=== PATIENT | female | born 1960 | race Caucasian/White ===

== ENCOUNTER → 2016-08-04 | Outpatient (CLI) | payer OTHER ==
[~2016-08-04] MED LIST: /DIVA12TA OR; /DULO30CA OR; /DULO30CA PO; /PANT40TA; /PANT40TA OR; /ZOLP6ER OR; ALBU17IN2 IN; ALBUTEROL INH; AMBI10TA; BACTROBAN; BACTROBAN TOP; BETAMETHASONE TOP; BUSP15TA; Buspar; CELE100C OR; CELE20TA; CLAR5CHW; CLAR5CHW OR; CLARITIN PO; CLON0.5T OR; CLON1TAB OR; Claritin; DARV100T; DARV100T OR; FLON0.05; FLUT22IN; IBUP600T; KLON0.5T OR; KLON1TAB; KLON1TAB OR; MEDR8TAB OR; PHEN 25 OR; PHEN 25 PO; PREV15CA OR; PROTOPIC TOP; PROZ10CA OR; PROZ40CA OR; QUET20XRTB OR; RANI300T OR; REME15TA OR; REST30CA OR; SING10TA31 OR; SYMB80AE IN; TRAZ100T OR; TRAZ150T OR; TRAZ50TA; TRIAMCINOLONE OINT; VENTAER; VENTAER IN; VENTOLIN ROTAHALER; VENTOLIN ROTAHALER INH; VICO5TAB; VICO5TAB OR; ZANT150T; ZANT150T OR; [UNRECOGNIZED DRUG - CODE] PO; [UNRECOGNIZED DRUG - REMARK]; cymbalta PO; dexilant; topical cream TOP; trazadone PO
[2016-08-04 14:08] LABS: ALBUMIN 3.5 GM/DL (3.2-5.2); ALBUMIN/GLOBULIN RATIO 1.09 (1.00-1.93); ALKALINE PHOSPHATASE 93 U/L (45-117); ALT/SGPT 17 U/L (12-78); ANION GAP 6 MEQ/L (8-16); AST/SGOT 13 U/L (15-37); BILIRUBIN,TOTAL 0.3 MG/DL (0.2-1.0); BLOOD UREA NITROGEN 11 MG/DL (7-18); CALCIUM LEVEL 8.9 MG/DL (8.5-10.1); CARBON DIOXIDE LEVEL 27 MEQ/L (21-32); CHLORIDE LEVEL 108 MEQ/L (98-107); CHOLESTEROL LEVEL 188 MG/DL (<200); CREATININE FOR GFR 0.84 MG/DL (0.55-1.02); GLOMERULAR FILTRATION RATE > 60.0 (>51); GLUCOSE, FASTING 78 MG/DL (70-105); POTASSIUM SERUM 4.2 MEQ/L (3.5-5.1); SODIUM LEVEL 141 MEQ/L (136-145); TOTAL PROTEIN 6.7 GM/DL (6.4-8.2); TRIGLYCERIDES LEVEL 73 MG/DL (<150)
== END ==
LOC: M WUC 10:35
PROVIDERS: ATTEND Family Medicine
DX: F33.41 Major depressive disorder, recurrent, in partial remission (principal); F41.1 Generalized anxiety disorder; K21.9 Gastro-esophageal reflux disease without esophagitis; E78.00 Pure hypercholesterolemia, unspecified

== ENCOUNTER 2016-12-05 00:34 | Emergency (ER) | payer MEDICAID, MEDICARE, OTHER ==
[~2016-12-05] VITALS: Ht 170.2 cm; Wt 72.7 kg
[2016-12-05] MEDS ORDERED: BIOT50005 SL (01:44)
[2016-12-05] MEDS ORDERED: MAGN250T9 PO (01:44)
[2016-12-05] MEDS ORDERED: CITRTAB10 PO (01:44)
[2016-12-05] MEDS ORDERED: TOPI50TA9 (01:44)
[2016-12-05] MEDS ORDERED: ASPI81TA85 PO (01:44)
[2016-12-05] MEDS ORDERED: BUSP15TA47 (01:44)
[2016-12-05] MEDS ORDERED: [UNRECOGNIZED DRUG - CODE] (01:44)
[2016-12-05] MEDS ORDERED: VITA250L PO (01:44)
[2016-12-05] MEDS ORDERED: MULT1TAB18 PO (01:44)
[2016-12-05] MEDS ORDERED: VITA200010 (01:44)
[2016-12-05] MEDS ORDERED: MIRT30TA3 (01:44)
[2016-12-05] MEDS ORDERED: DULO1CAP2 (01:44)
[2016-12-05] MEDS ORDERED: LEVO25TA5 (01:44)
[2016-12-05 03:04] LABS: BASO % 0.6 % (0.0-1.0); EOS # 0.3 K/mm3 (0.0-0.50); EOS % 3.2 % (0.0-3.0); LARGE UNSTAINED CELL # 0.1 K/mm3 (0.0-0.4); LARGE UNSTAINED CELL % 1.4 % (0.0-4.0); LYMPH # 1.8 K/mm3 (1.5-4.5); LYMPH % 18.2 % (24.0-44.0); MEAN CORPUSCULAR HEMOGLOBIN 31.4 pg (27.0-33.0); MEAN CORPUSCULAR HGB CONC 32.4 g/dl (32.0-36.5); MEAN CORPUSCULAR VOLUME 96.7 fl (80.0-96.0); MONO # 0.5 K/mm3 (0.0-0.8); MONO % 4.9 % (0.0-5.0); NEUTROPHILS # 6.6 K/mm3 (1.8-7.7); NEUTROPHILS % 71.7 % (36.0-66.0); PLATELET COUNT, AUTOMATED 339 k/mm3 (150-450); RED CELL DISTRIBUTION WIDTH 13.6 % (11.5-14.5); WHITE BLOOD COUNT 9.2 K/mm3 (4.0-10.0)
[2016-12-05 03:28] LABS: ALBUMIN 3.6 GM/DL (3.2-5.2); ALKALINE PHOSPHATASE 86 U/L (45-117); ALT/SGPT 26 U/L (12-78); ANION GAP 5 MEQ/L (8-16); AST/SGOT 27 U/L (15-37); BILIRUBIN,DIRECT 0.1 MG/DL (0.0-0.2); BILIRUBIN,TOTAL 0.4 MG/DL (0.2-1.0); BLOOD UREA NITROGEN 9 MG/DL (7-18); CALCIUM LEVEL 8.5 MG/DL (8.5-10.1); CARBON DIOXIDE LEVEL 26 MEQ/L (21-32); CHLORIDE LEVEL 105 MEQ/L (98-107); CREATININE FOR GFR 0.75 MG/DL (0.55-1.02); GLOMERULAR FILTRATION RATE > 60.0 (>51); GLUCOSE, FASTING 100 MG/DL (70-105); POTASSIUM SERUM 4.2 MEQ/L (3.5-5.1); SODIUM LEVEL 136 MEQ/L (136-145); TOTAL PROTEIN 7.2 GM/DL (6.4-8.2)
[2016-12-05] MEDS ORDERED: KETOROLAC 30 MG/ML VIAL (J1885) IV ONE (04:15)
[2016-12-05] MEDS ORDERED: ONDANSETRON 4 MG ORAL DISINTEGRATING TAB (S0181) PO ONE ×2 (04:30→06:45)
--- NOTE | 2016-12-05 04:42 | REP ---
Clinical: Epigastric and abdominal pain. Technique: Upright view of the chest with supine and upright views of the abdomen and pelvis. Findings: Frontal upright view of the chest demonstrates linear plate-like atelectasis / scarring at the left lung base with no acute cardiopulmonary process or free air below the diaphragm to suspect pneumoperitoneum. Supine and upright views of the abdomen and pelvis demonstrate nonspecific bowel gas pattern without obstruction or perforation. Evidence for prior gastric bypass surgery. No organomegaly. No abnormal calcifications. Skeletal structures normal for age. Impression: Nonspecific bowel gas pattern. Prior gastric bypass surgery. Signed by Lyndon Bass MD 12/05/2016 04:33 A
[2016-12-05] MEDS ORDERED: NAPR500T PO (04:57)
[2016-12-05 05:51] VITALS: BP 156/85
--- NOTE | 2016-12-05 08:31 | ECGEPIP ---
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
== END 2016-12-05 06:53 | disposition home or self-care (01) ==
LOC: M ED 00:34
DX: M94.8X8 Other specified disorders of cartilage, other site (principal); I50.9 Heart failure, unspecified; J45.909 Unspecified asthma, uncomplicated; K21.9 Gastro-esophageal reflux disease without esophagitis; F32.9 Major depressive disorder, single episode, unspecified; Z87.891 Personal history of nicotine dependence; Z98.84 Bariatric surgery status; Z79.82 Long term (current) use of aspirin; Z79.899 Other long term (current) drug therapy; Z91.040 Latex allergy status; Z91.89 Other specified personal risk factors, not elsewhere classified; Z88.8 Allergy status to other drugs, medicaments and biological substances
CPT/HCPCS: 74022; 80048; 80076; 82550; 82553; 83690; 85025; 93000; 93041; 96374; 99285; J1885

== ENCOUNTER 2017-01-24 13:03 | Emergency (ER) | payer MEDICAID, OTHER ==
[~2017-01-24] VITALS: Ht 170.2 cm; Wt 70.5 kg
[~2017-01-24 13:03] MED LIST changes: +ASPI81TA85 PO; +BIOT50005 SL; +BUSP15TA47; +CITRTAB10 PO; +DULO1CAP2; +LEVO25TA5; +MAGN250T9 PO; +MIRT30TA3; +MULT1TAB18 PO; +NAPR500T PO; +TOPI50TA9; +VITA200010; +VITA250L PO; +[UNRECOGNIZED DRUG - CODE]
[2017-01-24] MEDS ORDERED: KETOROLAC 60 MG/2 ML VIAL (J1885) IM ONE (13:45)
[2017-01-24] MEDS ORDERED: ONDANSETRON 4 MG ORAL DISINTEGRATING TAB (S0181) PO ONE (14:00)
[2017-01-24] MEDS ORDERED: MOBI4TAB PO (14:52)
[2017-01-24] MEDS ORDERED: CODE60TA2 PO (14:52)
[2017-01-24 15:40] VITALS: BP 145/81
[2017-01-24] MEDS ORDERED: TYLE325T5 PO (15:48)
--- NOTE | 2017-01-26 07:11 | ECGEPIP ---
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
== END 2017-01-24 16:13 | disposition home or self-care (01) ==
LOC: M ED 13:03
DX: R07.2 Precordial pain (principal); G47.33 Obstructive sleep apnea (adult) (pediatric); F41.9 Anxiety disorder, unspecified; F32.9 Major depressive disorder, single episode, unspecified; J30.2 Other seasonal allergic rhinitis; Z87.891 Personal history of nicotine dependence; Z79.82 Long term (current) use of aspirin; Z79.899 Other long term (current) drug therapy; Z88.8 Allergy status to other drugs, medicaments and biological substances; Z88.5 Allergy status to narcotic agent; Z91.040 Latex allergy status; Z91.89 Other specified personal risk factors, not elsewhere classified
CPT/HCPCS: 36415; 93000; 96372; 99285; J1885

== ENCOUNTER 2017-01-27 11:20 | Emergency (ER) | payer OTHER ==
[~2017-01-27] VITALS: Ht 170.2 cm; Wt 68.2 kg
[~2017-01-27 11:20] MED LIST changes: +CODE60TA2 PO; +MOBI4TAB PO; +TYLE325T5 PO
[2017-01-27] MEDS ORDERED: ZOFR8TAB PO (11:32)
[2017-01-27] MEDS ORDERED: PRED10TA2 PO (11:32)
[2017-01-27] MEDS ORDERED: ACET30TAB PO (11:32)
[2017-01-27] MEDS ORDERED: PANT40TA2 (11:32)
[2017-01-27] MEDS ORDERED: ONDANSETRON 4MG/2ML VIAL (J2405) IV ONE (12:00)
[2017-01-27] MEDS: HYDROmorphone HCL 1 MG/ML SYRINGE (J1170) IV PRN ×2 (12:10→14:25)
[2017-01-27 12:24] LABS: BASO # 0.2 K/mm3 (0.0-0.2); EOS % 0.5 % (0.0-3.0); LARGE UNSTAINED CELL % 0.3 % (0.0-4.0); LYMPH # 0.5 K/mm3 (1.5-4.5); LYMPH % 6.2 % (24.0-44.0); MEAN CORPUSCULAR HEMOGLOBIN 32.1 pg (27.0-33.0); MEAN CORPUSCULAR HGB CONC 32.9 g/dl (32.0-36.5); MEAN CORPUSCULAR VOLUME 97.4 fl (80.0-96.0); MONO # 0.1 K/mm3 (0.0-0.8); MONO % 1.2 % (0.0-5.0); NEUTROPHILS # 7.5 K/mm3 (1.8-7.7); NEUTROPHILS % 89.9 % (36.0-66.0); PLATELET COUNT, AUTOMATED 315 k/mm3 (150-450); RED CELL DISTRIBUTION WIDTH 13.7 % (11.5-14.5); WHITE BLOOD COUNT 8.3 K/mm3 (4.0-10.0)
[2017-01-27 13:02] LABS: ALBUMIN 3.3 GM/DL (3.2-5.2); ALBUMIN/GLOBULIN RATIO 0.89 (1.00-1.93); ALKALINE PHOSPHATASE 91 U/L (45-117); ALT/SGPT 30 U/L (12-78); AMYLASE 81 U/L (25-115); ANION GAP 11 MEQ/L (8-16); AST/SGOT 21 U/L (15-37); BILIRUBIN,DIRECT < 0.1 MG/DL (0.0-0.2); BILIRUBIN,TOTAL 0.1 MG/DL (0.2-1.0); BLOOD UREA NITROGEN 20 MG/DL (7-18); CALCIUM LEVEL 8.7 MG/DL (8.5-10.1); CARBON DIOXIDE LEVEL 24 MEQ/L (21-32); CHLORIDE LEVEL 110 MEQ/L (98-107); CREATININE FOR GFR 0.79 MG/DL (0.55-1.02); GLOMERULAR FILTRATION RATE > 60.0 (>51); GLUCOSE, FASTING 136 MG/DL (70-105); POTASSIUM SERUM 3.7 MEQ/L (3.5-5.1); SODIUM LEVEL 145 MEQ/L (136-145)
[2017-01-27] MEDS ORDERED: ISOVUE-370 76% 100ML VIAL (Q9967) As Ordered ONE (13:11)
--- NOTE | 2017-01-27 13:36 | REP ---
Clinical: Acute pain. Technique: Axial contrast enhanced images from the thoracic inlet to the upper abdomen using 100 ml Isovue 370 intravenous contrast material with multiplanar re-formations. Findings: Satisfactory enhancement of the pulmonary vasculature is achieved and no filling defects are identified to suggest pulmonary embolus. Mild atherosclerotic changes to the thoracic aorta and coronary arteries noted. There is no evidence for thoracic aortic aneurysm or dissection, cardiomegaly or pericardial effusion. The bilateral lung horne demonstrate mild scattered scarring and emphysematous changes without consolidation, pleural effusion or pneumothorax. Tracheobronchial tree is patent. No nodule or mass lesion is identified. No adenopathy noted. Surrounding musculoskeletal structures intact Impression: No evidence for pulmonary embolus. No acute mediastinal or pleural parenchymal process. Mild chronic emphysematous changes and minimal scarring. Signed by Lyndon Bass MD 01/27/2017 01:28 P
--- NOTE | 2017-01-27 13:45 | REP ---
Clinical: Acute epigastric pain. Technique: Axial contrast enhanced images from the lung bases to the pubic symphysis using 100 ml Isovue 370 intravenous contrast material with coronal and sagittal re-formations. Comparison: 01/06/2011. Findings: Lung bases are clear. Visualized heart and pericardium normal. Liver, spleen, pancreas, bilateral adrenal glands and kidneys are normal / stable. 1.5 cm posterior right renal cyst is minimally increased in size but otherwise unremarkable. There are suggestions for mild biliary ductal dilatation along with prominent gallbladder which may warrant ultrasound examination. A trace amount of infrahepatic fluid extends into the right paracolic gutter and is of uncertain etiology. The patient is status post gastric bypass surgery. The enteric system is without obstruction or obvious acute inflammatory process. Colonic and sigmoid diverticula noted without acute diverticulitis. Pelvis demonstrates normal bladder and evidence for prior hysterectomy. No significant ascites. No obvious adenopathy. Abdominal aorta and vasculature appears relatively normal and without aortic aneurysm or dissection. Musculoskeletal structures are intact. Impression: 1. Mildly prominent gallbladder and mild common bile duct dilatation is appreciated along with a small amount of infrahepatic fluid extending into the right pericolic gutter. Correlation is recommended to exclude early acute cholecystitis and ultrasound may be warranted. 2. 1.5 cm right renal hypodensity likely representing cyst and mildly increased in size compared to 2010. 3. Sigmoid diverticula without acute diverticulitis. Signed by Lyndon Bass MD 01/27/2017 01:36 P
[2017-01-27] MEDS ORDERED: METOCLOPRAMIDE INJ 10MG/2ML VIAL (J2765) IV ONE (14:30)
--- NOTE | 2017-01-27 14:32 | REP ---
Clinical: Epigastric pain and tenderness. Technique: Real time gay scale and color evaluation using curved array transducer. Findings: Liver and pancreas are normal in contour, size, echogenicity and without focal hepatic or pancreatic lesion identified. The gallbladder is mildly distended and a sonographic Bravo's sign was elicited during examination. However no gallstones or pericholecystic fluid is appreciated. The common bile duct is minimally dilated and 7.3 mm. The right kidney is normal in reniform shape and without hydronephrosis measuring 10.1 x 4.9 x 4.0 cm with 1.7 cm simple mid pole cyst. No ascites. Impression: Mildly distended gallbladder and common bile duct without gallstones or pericholecystic fluid. Findings are nonspecific. Signed by Lyndon Bass MD 01/27/2017 02:23 P
[2017-01-27] MEDS ORDERED: REGL10TA6 PO (14:39)
[2017-01-27 14:48] VITALS: BP 171/84
--- NOTE | 2017-01-28 17:18 | ECGEPIP ---
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
--- NOTE | 2017-01-29 08:39 | ED PDOC ---
Post-Departure Follow-Up radiology report faxed to Veronica Kaur MD Jan 29, 2017 08:39
== END 2017-01-27 14:57 | disposition home or self-care (01) ==
LOC: M ED 11:20
DX: G89.29 Other chronic pain (principal); R07.89 Other chest pain; J44.9 Chronic obstructive pulmonary disease, unspecified; F99 Mental disorder, not otherwise specified; Z79.899 Other long term (current) drug therapy; Z79.82 Long term (current) use of aspirin; Z79.52 Long term (current) use of systemic steroids; Z88.8 Allergy status to other drugs, medicaments and biological substances; Z91.040 Latex allergy status; J30.2 Other seasonal allergic rhinitis; L23.1 Allergic contact dermatitis due to adhesives; Z98.0 Intestinal bypass and anastomosis status; Z98.890 Other specified postprocedural states
CPT/HCPCS: 71275; 74177; 76705; 80048; 80076; 81001; 82150; 82550; 82553; 83690; 85025; 93000; 96374; 96375; 96376; 99284; J1170; J2405; J2765; Q9967

== ENCOUNTER → 2017-09-14 | Outpatient (REF) | payer OTHER | LOC: M SFHCPLAZ 15:42 | DX: E03.9 Hypothyroidism, unspecified (principal) ==

== ENCOUNTER → 2018-01-29 | Outpatient (REF) | payer OTHER, MEDICAID | LOC: M SFHCPLAZ 15:54 | DX: Z01.419 Encounter for gynecological examination (general) (routine) without abnormal findings (principal) ==

== ENCOUNTER → 2018-02-09 | Outpatient (REF) | payer OTHER, MEDICAID ==
[2018-02-09 11:52] LABS: HEMATOCRIT 39.1 % (36.0-47.0); HEMOGLOBIN 12.9 g/dl (12.0-15.5); MEAN CORPUSCULAR HEMOGLOBIN 31.7 pg (27.0-33.0); MEAN CORPUSCULAR VOLUME 96.1 fl (80.0-96.0); PLATELET COUNT, AUTOMATED 345 10^3/uL (150-450); RED BLOOD COUNT 4.07 10^6/uL (4.00-5.40); RED CELL DISTRIBUTION WIDTH 13.2 % (11.5-14.5); WHITE BLOOD COUNT 7.2 10^3/uL (4.0-10.0)
[2018-02-09 13:45] LABS: FERRITIN 43 NG/ML (8-252); IRON (FE) 74 UG/DL (50-170); PERCENT SATURATION 28.8 % (13.2-45.0); TOTAL IRON BINDING CAPACITY 257 UG/DL (250-450)
== END ==
LOC: M LABDRAW1 07:50
DX: E61.1 Iron deficiency (principal); E03.9 Hypothyroidism, unspecified

== ENCOUNTER 2018-02-15 13:46 | Emergency (ER) | payer OTHER, MEDICAID ==
[2018-02-15] MEDS: ONDANSETRON 4MG/2ML VIAL (J2405) IV (14:15)
[2018-02-15] MEDS: PANTOPRAZOLE 40MG INJ (PROTONIX) (C9113) IV (14:15)
[2018-02-15] MEDS: NS 1,000 ML IV (14:15)
[2018-02-15] MEDS: GI COCKTAIL 50ML BTL(HYOSCYAMINE/MAALOX/LIDOCAINE VISCOUS)(1:3:1) PO (14:15)
[2018-02-15] MEDS: SUCRALFATE SUSP 1GM/10ML UD PO (14:30)
[2018-02-15 14:52] LABS: BASO # 0.1 10^3/uL (0.0-0.2); BASO % 0.6 % (0.0-1.0); EOS # 0.1 10^3/uL (0.0-0.50); EOS % 0.8 % (0.0-3.0); HEMATOCRIT 39.9 % (36.0-47.0); HEMOGLOBIN 13.4 g/dl (12.0-15.5); IMMATURE GRANULOCYTE % 0.5 % (0-3.0); LYMPH # 1.9 10^3/uL (1.5-4.5); LYMPH % 15.4 % (24.0-44.0); MEAN CORPUSCULAR HEMOGLOBIN 31.9 pg (27.0-33.0); MEAN CORPUSCULAR HGB CONC 33.6 g/dl (32.0-36.5); MONO % 7.9 % (0.0-5.0); NEUTROPHILS # 9.1 10^3/uL (1.8-7.7); NEUTROPHILS % 74.8 % (36.0-66.0); PLATELET COUNT, AUTOMATED 354 10^3/uL (150-450); WHITE BLOOD COUNT 12.2 10^3/uL (4.0-10.0)
[2018-02-15 15:07] LABS: ALBUMIN 3.4 GM/DL (3.2-5.2); ALBUMIN/GLOBULIN RATIO 0.77 (1.00-1.93); ALKALINE PHOSPHATASE 108 U/L (45-117); ALT/SGPT 18 U/L (12-78); ANION GAP 7 MEQ/L (8-16); AST/SGOT 15 U/L (7-37); BILIRUBIN,DIRECT 0.1 MG/DL (0.0-0.2); BILIRUBIN,TOTAL 0.4 MG/DL (0.2-1.0); BLOOD UREA NITROGEN 16 MG/DL (7-18); CALCIUM LEVEL 8.9 MG/DL (8.5-10.1); CARBON DIOXIDE LEVEL 28 MEQ/L (21-32); CHLORIDE LEVEL 103 MEQ/L (98-107); CREATININE FOR GFR 0.77 MG/DL (0.55-1.30); GLOMERULAR FILTRATION RATE > 60.0 (>51); GLUCOSE, FASTING 97 MG/DL (70-100); LIPASE 106 U/L (73-393); POTASSIUM SERUM 3.6 MEQ/L (3.5-5.1); SODIUM LEVEL 138 MEQ/L (136-145); TOTAL PROTEIN 7.8 GM/DL (6.4-8.2)
[2018-02-15] MEDS: GASTROGRAFIN SOLUTION 30ML PO ×2 (15:35→16:04)
[2018-02-15] MEDS ORDERED: ISOVUE-370 76% 100ML VIAL (Q9967) As Ordered (16:45)
== END 2018-02-15 18:29 | disposition home or self-care (01) ==
LOC: M ED 13:46
DX: K27.9 Peptic ulcer, site unspecified, unspecified as acute or chronic, without hemorrhage or perforation (principal); K21.9 Gastro-esophageal reflux disease without esophagitis; F41.9 Anxiety disorder, unspecified; Z79.899 Other long term (current) drug therapy; Z79.890 Hormone replacement therapy; Z88.8 Allergy status to other drugs, medicaments and biological substances; Z91.048 Other nonmedicinal substance allergy status; J30.2 Other seasonal allergic rhinitis; F17.210 Nicotine dependence, cigarettes, uncomplicated
CPT/HCPCS: C9113

== ENCOUNTER 2018-03-15 07:45 | Emergency (ER) | payer OTHER, MEDICAID ==
[2018-03-15] MEDS: ONDANSETRON 4MG/2ML VIAL (J2405) IV (08:51)
[2018-03-15] MEDS: NS 1,000 ML IV (08:51)
[2018-03-15] MEDS: FAMOTIDINE IV BAG 20 MG in APPROPRIATE DILUENT 1 EA IV (08:53)
[2018-03-15] MEDS: GASTROGRAFIN SOLUTION 30ML PO ×3 (09:00→09:30)
[2018-03-15 09:11] LABS: KETONE, URINE AUTO RFX NEGATIVE (NEGATIVE); LEUKOCYTE ESTERASE UR AUTO RFX NEGATIVE (NEGATIVE); MUCUS, URINE RFX SMALL (NEGATIVE); NITRITE, URINE AUTO RFX NEGATIVE (NEGATIVE); RBC, URINE AUTO RFX 0 /HPF (0-3); SQUAM EPITHELIAL CELL UR AURFX 2 /HPF (0-6); WBC, URINE AUTO RFX 0 /HPF (0-3)
[2018-03-15 09:13] LABS: BASO # 0.1 10^3/uL (0.0-0.2); BASO % 0.8 % (0.0-1.0); EOS # 0.1 10^3/uL (0.0-0.50); EOS % 1.1 % (0.0-3.0); HEMATOCRIT 36.8 % (36.0-47.0); HEMOGLOBIN 12.3 g/dl (12.0-15.5); IMMATURE GRANULOCYTE % 0.2 % (0-3.0); LYMPH # 2.4 10^3/uL (1.5-4.5); LYMPH % 24.5 % (24.0-44.0); MEAN CORPUSCULAR HEMOGLOBIN 31.3 pg (27.0-33.0); MEAN CORPUSCULAR HGB CONC 33.4 g/dl (32.0-36.5); MEAN CORPUSCULAR VOLUME 93.6 fl (80.0-96.0); MONO # 0.6 10^3/uL (0.0-0.8); MONO % 6.4 % (0.0-5.0); NEUTROPHILS # 6.4 10^3/uL (1.8-7.7); PLATELET COUNT, AUTOMATED 332 10^3/uL (150-450); RED BLOOD COUNT 3.93 10^6/uL (4.00-5.40); RED CELL DISTRIBUTION WIDTH 13.6 % (11.5-14.5); WHITE BLOOD COUNT 9.6 10^3/uL (4.0-10.0)
[2018-03-15 09:37] LABS: ALBUMIN 3.3 GM/DL (3.2-5.2); ALBUMIN/GLOBULIN RATIO 0.94 (1.00-1.93); ALKALINE PHOSPHATASE 155 U/L (45-117); ALT/SGPT 25 U/L (12-78); AMYLASE 81 U/L (25-115); ANION GAP 7 MEQ/L (8-16); AST/SGOT 15 U/L (7-37); BILIRUBIN,DIRECT < 0.1 MG/DL (0.0-0.2); BILIRUBIN,TOTAL 0.3 MG/DL (0.2-1.0); BLOOD UREA NITROGEN 12 MG/DL (7-18); CALCIUM LEVEL 8.8 MG/DL (8.5-10.1); CARBON DIOXIDE LEVEL 26 MEQ/L (21-32); CHLORIDE LEVEL 107 MEQ/L (98-107); CK-MB VALUE MASS < 1.0 NG/ML (<3.6); CPK CREATINE PHOSPHOKINASE 69 U/L (26-192); CREATININE FOR GFR 0.75 MG/DL (0.55-1.30); GLOMERULAR FILTRATION RATE > 60.0 (>51); GLUCOSE, FASTING 92 MG/DL (70-100); LIPASE 160 U/L (73-393); MB/CK RELATIVE INDEX 1.45 (< OR =4); POTASSIUM SERUM 4.2 MEQ/L (3.5-5.1); SODIUM LEVEL 140 MEQ/L (136-145); TOTAL PROTEIN 6.8 GM/DL (6.4-8.2); TROPONIN I < 0.02 NG/ML (< 0.10)
[2018-03-15] MEDS: MORPHINE 2 MG/ML 1ML SYRINGE (J2270) IV (09:46)
[2018-03-15] MEDS ORDERED: ISOVUE-370 76% 100ML VIAL (Q9967) As Ordered (10:15)
== END 2018-03-15 11:33 | disposition home or self-care (01) ==
LOC: M ED 07:45
DX: K27.9 Peptic ulcer, site unspecified, unspecified as acute or chronic, without hemorrhage or perforation (principal); J45.909 Unspecified asthma, uncomplicated; E03.9 Hypothyroidism, unspecified; K21.9 Gastro-esophageal reflux disease without esophagitis; F41.9 Anxiety disorder, unspecified; M54.30 Sciatica, unspecified side; Z98.84 Bariatric surgery status; Z79.899 Other long term (current) drug therapy; Z79.890 Hormone replacement therapy; Z88.8 Allergy status to other drugs, medicaments and biological substances; Z91.040 Latex allergy status; Z91.048 Other nonmedicinal substance allergy status; F17.210 Nicotine dependence, cigarettes, uncomplicated
CPT/HCPCS: Q9963

== ENCOUNTER → 2018-04-02 | Outpatient (CLI) | payer OTHER ==
[~2018-04-02] MED LIST changes: -/DIVA12TA OR; -/DULO30CA OR; -/DULO30CA PO; -/PANT40TA; -/PANT40TA OR; -/ZOLP6ER OR; -ALBU17IN2 IN; -ALBUTEROL INH; -AMBI10TA; -ASPI81TA85 PO; -BACTROBAN; -BACTROBAN TOP; -BETAMETHASONE TOP; -BIOT50005 SL; -BUSP15TA; -BUSP15TA47; -Buspar; -CELE100C OR; -CELE20TA; -CITRTAB10 PO; -CLAR5CHW; -CLAR5CHW OR; -CLARITIN PO; -CLON0.5T OR; -CLON1TAB OR; -CODE60TA2 PO; -Claritin; -DARV100T; -DARV100T OR; -DULO1CAP2; +E-Z-HD 98% w/w 340GM SUSP BTL As Ordered; +E-Z-PAQUE 96% w/w SUSP 176GM BTL As Ordered; -FLON0.05; -FLUT22IN; -IBUP600T; -KLON0.5T OR; -KLON1TAB; -KLON1TAB OR; -LEVO25TA5; -MAGN250T9 PO; -MEDR8TAB OR; -MIRT30TA3; -MOBI4TAB PO; -MULT1TAB18 PO; -NAPR500T PO; -PHEN 25 OR; -PHEN 25 PO; -PREV15CA OR; -PROTOPIC TOP; -PROZ10CA OR; -PROZ40CA OR; -QUET20XRTB OR; -RANI300T OR; -REME15TA OR; -REST30CA OR; -SING10TA31 OR; -SYMB80AE IN; -TOPI50TA9; -TRAZ100T OR; -TRAZ150T OR; -TRAZ50TA; -TRIAMCINOLONE OINT; -TYLE325T5 PO; -VENTAER; -VENTAER IN; -VENTOLIN ROTAHALER; -VENTOLIN ROTAHALER INH; -VICO5TAB; -VICO5TAB OR; -VITA200010; -VITA250L PO; -ZANT150T; -ZANT150T OR; -[UNRECOGNIZED DRUG - CODE]; -[UNRECOGNIZED DRUG - CODE] PO; -[UNRECOGNIZED DRUG - REMARK]; -cymbalta PO; -dexilant; -topical cream TOP; -trazadone PO
== END ==
LOC: M RAD 09:53
DX: Z98.84 Bariatric surgery status (principal)
CPT/HCPCS: 74241

== ENCOUNTER 2018-04-11 08:26 | Day surgery (SDC) | payer OTHER ==
[2018-04-11] MEDS: NS 1,000 ML IV (08:30)
[2018-04-11] MEDS ORDERED: LIDOCAINE 2% INJ 100 MG/5 ML SDV (FOR ANES.) As Ordered (09:31)
[2018-04-11] MEDS ORDERED: PROPOFOL 500 MG/50 ML VIAL As Ordered (09:31)
[2018-04-11] MEDS ORDERED: fentaNYL 100 MCG/2 ML INJECTION (J3010) As Ordered (09:31)
[2018-04-11] MEDS ORDERED: ONDANSETRON 4MG/2ML VIAL (J2405) As Ordered (09:46)
[2018-04-11] MEDS: ONDANSETRON 4MG/2ML VIAL (J2405) IV (09:50)
== END 2018-04-11 10:11 | disposition home or self-care (01) ==
LOC: M OPP 08:26
DX: K29.70 Gastritis, unspecified, without bleeding (principal); E03.9 Hypothyroidism, unspecified; R12 Heartburn; F41.9 Anxiety disorder, unspecified; F32.9 Major depressive disorder, single episode, unspecified; G47.30 Sleep apnea, unspecified; Z79.899 Other long term (current) drug therapy; Z91.040 Latex allergy status; Z88.8 Allergy status to other drugs, medicaments and biological substances; R11.10 Vomiting, unspecified
CPT/HCPCS: 43235

== ENCOUNTER 2018-07-12 02:47 | Observation (INO) | payer MEDICAID, OTHER ==
[~2018-07-12] VITALS: Ht 170.2 cm; Wt 71.8 kg
[~2018-07-12 02:47] MED LIST changes: +/DIVA12TA OR; +/DULO30CA OR; +/DULO30CA PO; +/PANT40TA; +/PANT40TA OR; +/ZOLP6ER OR; +ACET30TAB PO; +ALBU17IN2 IN; +ALBUTEROL INH; +AMBI10TA; +ASPI81TA85 PO; +BACTROBAN; +BACTROBAN TOP; +BETAMETHASONE TOP; +BIOT50005 SL; +BUSP15TA; +BUSP15TA47; +BUSP15TA47 PO; +BUSP30TA PO; +Buspar; +CELE100C OR; +CELE20TA; +CITRTAB10 PO; +CLAR5CHW; +CLAR5CHW OR; +CLARITIN PO; +CLON0.5T OR; +CLON1TAB OR; +CODE60TA2 PO; +CYMB1CAP5 PO; +CYMB60CA3 PO; +Claritin; +DARV100T; +DARV100T OR; +DULO1CAP2; -E-Z-HD 98% w/w 340GM SUSP BTL As Ordered; -E-Z-PAQUE 96% w/w SUSP 176GM BTL As Ordered; +FLON0.05; +FLUT22IN; +IBUP600T; +KLON0.5T OR; +KLON1TAB; +KLON1TAB OR; +LEVO25TA5 PO; +MAGN250T9 PO; +MEDR8TAB OR; +MIRT30TA3; +MIRT30TA3 PO; +MISO200T56; +MISO200T56 PO; +MOBI4TAB PO; +MULT1TAB18 PO; +NAPR-50 PO; +PANT40TA3 PO; +PHEN 25 OR; +PHEN 25 PO; +PRED10TA2 PO; +PREV15CA OR; +PROT1TAB2 PO; +PROTOPIC TOP; +PROZ10CA OR; +PROZ40CA OR; +QUET20XRTB OR; +RANI300T OR; +REGL10TA6 PO; +REME15TA OR; +REST30CA OR; +SING10TA31 OR; +SUCR1SS PO; +SYMB80AE IN; +SYMB80INH INH; +TOPI50TA9; +TRAZ100T OR; +TRAZ150T OR; +TRAZ50TA; +TRIAMCINOLONE OINT; +TYLE325T5 PO; +VENTAER; +VENTAER IN; +VENTAER INH; +VENTOLIN ROTAHALER; +VENTOLIN ROTAHALER INH; +VICO5TAB; +VICO5TAB OR; +VITA200010; +VITA200016 PO; +VITA250L PO; +ZANT150T; +ZANT150T OR; +ZOFR4TAB14 PO; +ZOFR8TAB24 PO; +[UNRECOGNIZED DRUG - CODE]; +[UNRECOGNIZED DRUG - CODE] PO; +[UNRECOGNIZED DRUG - REMARK]; +cymbalta PO; +dexilant; +topical cream TOP; +trazadone PO
[2018-07-12 03:18] LABS: BASO # 0.1 10^3/uL (0.0-0.2); BASO % 0.8 % (0.0-1.0); EOS # 0.1 10^3/uL (0.0-0.50); HEMATOCRIT 43.1 % (36.0-47.0); HEMOGLOBIN 14.5 g/dl (12.0-15.5); LYMPH % 22.5 % (24.0-44.0); MEAN CORPUSCULAR HEMOGLOBIN 30.9 pg (27.0-33.0); MEAN CORPUSCULAR HGB CONC 33.6 g/dl (32.0-36.5); MEAN CORPUSCULAR VOLUME 91.9 fl (80.0-96.0); MONO # 0.7 10^3/uL (0.0-0.8); MONO % 7.8 % (0.0-5.0); NEUTROPHILS # 6.1 10^3/uL (1.8-7.7); NEUTROPHILS % 67.7 % (36.0-66.0); PLATELET COUNT, AUTOMATED 312 10^3/uL (150-450); RED BLOOD COUNT 4.69 10^6/uL (4.00-5.40)
[2018-07-12] MEDS ORDERED: PANTOPRAZOLE 40MG INJ (PROTONIX) (C9113) IV ONE (03:30)
[2018-07-12] MEDS ORDERED: ONDANSETRON 4MG/2ML VIAL (J2405) IV ONE (03:30)
[2018-07-12] MEDS ORDERED: GI COCKTAIL 50ML BTL(HYOSCYAMINE/MAALOX/LIDOCAINE VISCOUS)(1:3:1) PO ONE (03:30)
[2018-07-12 03:36] LABS: ALBUMIN 3.8 GM/DL (3.2-5.2); ALT/SGPT 23 U/L (12-78); BILIRUBIN,DIRECT < 0.1 MG/DL (0.0-0.2); BILIRUBIN,TOTAL 0.3 MG/DL (0.2-1.0); BLOOD UREA NITROGEN 12 MG/DL (7-18); CALCIUM LEVEL 9.1 MG/DL (8.5-10.1); CARBON DIOXIDE LEVEL 27 MEQ/L (21-32); CHLORIDE LEVEL 107 MEQ/L (98-107); CREATININE FOR GFR 0.75 MG/DL (0.55-1.30); GLOMERULAR FILTRATION RATE > 60.0 (>51); GLUCOSE, FASTING 110 MG/DL (70-100); LIPASE 125 U/L (73-393); POTASSIUM SERUM 4.7 MEQ/L (3.5-5.1); SODIUM LEVEL 141 MEQ/L (136-145); TOTAL PROTEIN 7.6 GM/DL (6.4-8.2)
[2018-07-12] MEDS: GASTROGRAFIN SOLUTION 30ML PO SCH ×2 (03:57→04:32)
[2018-07-12] MEDS ORDERED: ISOVUE-370 76% 100ML VIAL (Q9967) As Ordered ONE (05:01)
[2018-07-12] MEDS ORDERED: MORPHINE 4 MG/ML 1ML VIAL/SYRINGE (J2270) IV PRN ×2 (05:45→09:15)
--- NOTE | 2018-07-12 05:50 | REPVR ---
EXAM: CT Abdomen and Pelvis With Contrast EXAM DATE/TIME: 07/12/2018 3:25 AM CLINICAL HISTORY: 57 years old, female; Pain; Abdominal pain; Epigastric; Prior surgery; Surgery date: 6+ months; Surgery type: G bypass; Additional info: Epigastric pain, HX of pud and bypass TECHNIQUE: Axial computed tomography images of the abdomen and pelvis with intravenous contrast. All CT scans at this facility use at least one of these dose optimization techniques: automated exposure control; mA and/or kV adjustment per patient size (includes targeted exams where dose is matched to clinical indication); or iterative reconstruction. Coronal and sagittal reformatted images were created and reviewed. CONTRAST: Contrast Material: 100 ml of iso; Contrast Route: ac COMPARISON: CT ABD/PEL W/IV ORAL CONTRAS 03/15/2018 10:11 AM FINDINGS: Lower thorax: There is minimal, nonspecific dependent density in the lung bases. There is a suggestion of emphysema in the visualized lung bases. ABDOMEN: Liver: There are no focal liver lesions present. The site of abnormality in the left lobe liver on the prior exam has resolved. Gallbladder and bile ducts: The gallbladder is normal with no stones or biliary ductal dilation. Pancreas: The pancreas is normal with no ductal dilation. Spleen: The spleen is normal. Adrenals: The adrenal glands are normal. Kidneys and ureters: There is an 1.1 x 1.9 cm homogeneous low attenuation lesion in the right kidney upper pole, measuring 25 Hounsfield units. This appears unchanged and does not have suspicious features. No followup needed. The left kidney appears unremarkable. There are no ureteral stones or hydronephrosis. Stomach and bowel: There are surgical sutures at the stomach and small bowel, related to a gastric bypass surgery. The site of ulceration and thickening at the gastric jejunal junction on the prior exam is no longer seen. There is multiple dilated, fluid-filled small bowel loops with air-fluid levels. There is no dilation or thickening of the colon. The site of transition appears to be among the bowel loops in the right hemipelvis, where there is a small bowel feces sign leading up to mildly thickened, nondistended small bowel. Distal ileal loops are nondistended. No pneumatosis is seen. Appendix: A normal appendix is identified. PELVIS: Bladder: The bladder is unremarkable. No stones identified. Reproductive: The uterus is absent. ABDOMEN and PELVIS: Intraperitoneal space: There is no free intraperitoneal air. Bones/joints: No suspicious osseous lesions. No acute fractures or dislocations. Mild degenerative changes are seen in the visualized spine and right hip. Soft tissues: Unremarkable. Vasculature: The aorta demonstrates mild atherosclerotic calcification. Lymph nodes: No lymphadenopathy is seen. IMPRESSION: Dilated fluid-filled small bowel loops consistent with a small bowel obstruction. The site of obstruction appears to be in the right lower quadrant where there is mildly thickened, nondilated small bowel at the transition to nondistended distal small bowel loops. The cause of the mild thickening is uncertain. Electronically signed by: Jen Churchill On 07/12/2018 05:50:14 AM
[2018-07-12] MEDS ORDERED: B-1210009 PO (06:48)
[2018-07-12] MEDS ORDERED: SYMB80INH INH (06:48)
[2018-07-12] MEDS ORDERED: TYLE500T78 PO (06:48)
[2018-07-12] MEDS ORDERED: MISO200T56 PO (06:48)
[2018-07-12] MEDS ORDERED: SYNT25TA PO (06:48)
[2018-07-12] MEDS ORDERED: SING10TA32 PO (06:48)
[2018-07-12] MEDS ORDERED: METO10TA2 PO (06:48)
[2018-07-12] MEDS ORDERED: VENTAER INH (06:48)
[2018-07-12] MEDS ORDERED: VITMTA PO (06:48)
[2018-07-12] MEDS ORDERED: ONDA4TAB6 PO (06:48)
[2018-07-12] MEDS ORDERED: SUCR1SS PO (06:48)
[2018-07-12] MEDS: SYMBICORT 80/4.5MCG INHALER 6GM INH SCH ×2 (09:00→19:50)
[2018-07-12] MEDS ORDERED: ALBUTEROL 90 MCG/ACT 8GM HFA INHALER INH PRN (09:15)
[2018-07-12] MEDS ORDERED: ONDANSETRON 4MG/2ML VIAL (J2405) IV PRN (09:15)
[2018-07-12] MEDS ORDERED: METOCLOPRAMIDE INJ 10MG/2ML VIAL (J2765) IV PRN (09:15)
[2018-07-12] MEDS ORDERED: KETOROLAC 30 MG/ML VIAL (J1885) IV PRN (09:15)
--- NOTE | 2018-07-12 09:33 | REP ---
Clinical: Evaluate possible small bowel obstruction. Technique: Single supine view of the abdomen and pelvis. Findings: The bowel gas pattern is relatively nonspecific although a submucosal thickening to the loops of small bowel are suggested and raise the possibility of enteritis. Intraluminal contrast identified within the ascending colon which essentially excludes complete small bowel obstruction. No organomegaly. Skeletal structures are intact. Surgical suture material noted in the left upper abdomen suggesting prior gastric bypass surgery. Contrast outlines the bladder consistent with prior CT. Impression: 1. Intraluminal contrast noted within the ascending colon essentially excluding complete small bowel obstruction. 2. Findings to suggest acute enteritis. Electronically Signed by Lyndon Bass MD 07/12/2018 09:25 A
[2018-07-12] MEDS: MORPHINE 4 MG/ML 1ML VIAL/SYRINGE (J2270) IV PRN ×5 (10:28→23:56)
[2018-07-12 11:15] VITALS: BP 104/65
[2018-07-12] MEDS: LR 1,000 ML IV SCH ×2 (11:30→18:45)
--- NOTE | 2018-07-12 14:44 | HPE ---
DATE OF ADMISSION: 07/12/2018 ADMISSION DIAGNOSIS: Intestinal obstruction. HISTORY OF PRESENT ILLNESS: The patient is a pleasant 57-year-old woman who presented to the emergency department early in the morning of July 12 complaining of abdominal pain with some nausea and vomiting. The patient reports that she had been having some abdominal discomfort that would come and go over the last 2 weeks or so. The patient is status post a laparoscopic Eleazar-en-Y gastric bypass for obesity back in December 2013. In 2018, she had been treated for a possible gastrojejunal ulcer, which did not perforate but caused some epigastric discomfort and was felt to be seen on a CT scan showing a possible contained perforation. She describes that over the past 2 weeks she has had episodes of discomfort, which she reports begins in the epigastric area and then extends down into her lower abdomen and goes across the lower abdomen. She reports that the discomfort sometimes does come in waves as a crampy discomfort. The patient reports that she has generally been having a formed bowel movement every day. Her appetite has been off at times. She does report that over the last couple of days she feels as if she has been chilled though she has not had any rigors and has not checked her temperature. She had a loose bowel movement last night. Then also last night she developed some nausea and had vomiting and this is a very unusual thing for her. Because of her persistent discomfort and vomiting in particular she came to the emergency department for evaluation. ALLERGIES: The patient reports allergies to CHLORTHALIDONE, TRAZODONE, which she reports leads to depression. She indicates that LATEX leads to itching. She has some seasonal allergies as well and indicates that plastic tape also leads to skin irritation. MEDICATIONS: The patient has a list of multiple medications as follows: - Citracal petite vitamins 1 tablet by mouth daily - magnesium oxide 250 mg by mouth daily - Protonix 40 mg p.o. twice daily - Cymbalta 60 mg p.o. every morning and 30 mg p.o. daily at bedtime - vitamin D 2000 units p.o. daily - mirtazapine 30 mg p.o. daily at bedtime - buspirone hydrochloride 30 mg p.o. daily at bedtime and 15 mg daily in the morning - multivitamin 1 tablet daily - vitamin B12 1000 mcg p.o. daily - Zofran 4 mg p.o. every 4 hours as needed for nausea - Tylenol 2000 mg by mouth twice a day as needed for pain - albuterol 2 puffs inhaled every 4 hours as needed for shortness of breath - Symbicort 80 - 4.5 mcg 2 puffs inhaled twice a day - levothyroxine 25 mcg p.o. daily - Reglan 10 mg p.o. every 6 hours as needed for nausea - misoprostol 200 mcg by mouth four times daily - sucralfate 1 gram suspension four times daily before meals and at bedtime - Singulair 10 mg p.o. daily at bedtime MEDICAL HISTORY: Significant for depression. She has a history of peptic ulcer disease with a suggestion of a perforated ulcer contained between the gastric pouch and the liver noted in late 2017. EGD in March showed no active ulcer. The patient has a history of asthma. She did have sleep apnea but has not used her C-PAP since she lost significant weight. She has a history of prior gastroesophageal reflux. She has hypothyroidism. She has some chronic back discomfort. PAST SURGICAL HISTORY: The patient had her gastric bypass back in December 2013 in [place]. She has had three sections, two for live births and one for a demise. She underwent a hysterectomy previously and her ovaries remain in place. SOCIAL HISTORY: Patient is . She smokes one pack of cigarettes every 2-3 days. She denies any significant alcohol intake. FAMILY HISTORY: Shows no significant heritable conditions. REVIEW OF SYSTEMS: Reveals no history of chest pain or palpitations. She has not had any recent pulmonary symptoms. She denies any dysuria or hematuria. She has had no melena or hematochezia. She believes she did have a colonoscopy in about 2013. The patient denies any history of deep vein thrombosis (DVT) or pulmonary embolus. She does have a history of headaches but denies any history of seizure or stroke. Remainder of the review of systems is unremarkable. PHYSICAL EXAMINATION: The patient is a pleasant woman lying quietly on the stretcher in the emergency department. Most recent vital signs show a temperature of 99.6 with a pulse of 93 and blood pressure of 120/59 with a respiratory rate of 16. Her reported height is 67 inches with a weight of 72 kg. The patient is alert and oriented. Skin is warm and dry. Sclerae are anicteric. Mucous membranes are moist. The neck is supple without mass. She has no cervical bruit detected. Heart exam reveals a regular rate and rhythm. She is not tachycardiac. The lungs show a few scattered expiratory wheezes bilaterally. The abdomen is flat. She has a low midline scar extending from the umbilicus to the pubis. She has a few small transverse scars in the upper abdomen consistent with her prior laparoscopic gastric bypass. She has active bowel sounds in all four quadrants. There is no tenderness to percussion. There is no tympany to percussion. The abdomen is soft with perhaps some minimal tenderness on palpation low in the midline. There is no evident hernia. Extremities are without edema and she has palpable radial and pedal pulses bilaterally. Her laboratory studies show a CBC with a white count of 9 and a differential showing 68% neutrophils, 22% lymphocytes and 8% monocytes. Hemoglobin is 14 with a hematocrit of 43 and platelet count is 312,000. Chemistry profile shows normal electrolytes with BUN of 12, creatinine 0.75 and a glucose of 110. The patient's calcium, liver function tests, total protein and albumin are all normal. A lipase was normal at 125. Urinalysis is not suggestive of a urinary tract infection. A CT scan of the abdomen and pelvis was interpreted by the radiologist as showing some dilated fluid-filled small bowel loops consistent with a small bowel obstruction. The radiologist suggested that point of obstruction appeared to be in the right lower quadrant. There were postoperative changes noted. IMPRESSION: The patient is a 57-year-old woman with 2 weeks of waxing and waning discomfort who now presents with increased pain and some nausea and vomiting. She has had three prior sections and a hysterectomy, as well as a laparoscopic gastric bypass so she certainly could have underlying adhesions as cause for a bowel obstruction. At this point, her laboratory studies are normal and her symptoms seem to have remitted somewhat over the last couple hours. PLAN: The patient will be kept nothing by mouth. She will be placed on observation status. She will receive IV fluid. She will be given analgesics as necessary. She will be provided with intravenous proton pump inhibitors and anti nausea agents as well. I will order a KUB for later this afternoon to assess the progress of her oral contrast through the GI tract. Hopefully, her symptoms will resolve and we will be able to advance her diet and discharge her home. Certainly if things do not resolve within the next 24-48 hours, she will be converted to inpatient status and we may need to make plans for surgery. The patient was counseled regarding the plan and desires to proceed as I have outlined.
[2018-07-12 16:00] VITALS: BP 120/64
--- NOTE | 2018-07-12 16:51 | REP ---
Clinical: Follow up small bowel obstruction. Technique: Two supine views of the abdomen and pelvis. Findings: A considerable amount of intraluminal contrast is identified with in the colon essentially excluding complete small bowel obstruction. The small bowel gas pattern is relatively nonspecific although mild wall thickening and enteritis cannot be excluded. No evidence for bowel obstruction. No free air. No organomegaly. Surgical suture material in the left upper abdomen may reflect prior gastric bypass surgery. Skeletal structures are grossly intact. Impression: Contrast identified within the colon essentially excludes complete small bowel obstruction. Small bowel gas pattern is nonspecific although mild enteritis cannot be excluded. Electronically Signed by Lyndon Bass MD 07/12/2018 04:43 P
[2018-07-12 20:00] VITALS: BP_SYST 104; BP_SYST 119; BP_DIAS 52; BP_DIAS 65
[2018-07-12] MEDS: DULoxetine 30 MG CAP (CYMBALTA) PO SCH (20:29)
[2018-07-12] MEDS: busPIRone 10 MG TAB PO SCH (20:29)
[2018-07-12] MEDS: MIRTAZAPINE 15 MG TAB PO SCH (20:29)
[2018-07-12] MEDS ORDERED: PANTOPRAZOLE 40MG INJ (PROTONIX) (C9113) IV SCH (21:00)
[2018-07-13] VITALS: BP_SYST 104; BP_SYST 117; BP_DIAS 51; BP_DIAS 71
[2018-07-13 04:00] VITALS: BP 131/60
[2018-07-13] MEDS: LR 1,000 ML IV SCH (06:54)
[2018-07-13] MEDS: MORPHINE 4 MG/ML 1ML VIAL/SYRINGE (J2270) IV PRN ×2 (06:54→14:54)
[2018-07-13 08:00] VITALS: BP 148/80
[2018-07-13] MEDS: SYMBICORT 80/4.5MCG INHALER 6GM INH SCH ×2 (08:48→20:00)
[2018-07-13] MEDS: DULoxetine 30 MG CAP (CYMBALTA) PO SCH ×2 (08:50→21:02)
[2018-07-13] MEDS: PANTOPRAZOLE 40MG TAB (PROTONIX) PO SCH ×2 (08:50→21:01)
[2018-07-13] MEDS: busPIRone 5 MG TAB PO SCH (08:50)
[2018-07-13] MEDS: NORCO, ANEXSIA 5/325MG TABLET (HYDROcodone/ACETAMINOPHEN) PO PRN ×2 (10:01→21:01)
[2018-07-13] MEDS: LEVOTHYROXINE 25MCG TABLET (0.025MG) PO SCH (10:01)
--- NOTE | 2018-07-13 11:11 | IPN ---
DATE: 07/13/2018 HISTORY: The patient was admitted yesterday morning on observation for abdominal pain with a CT scan suggesting a bowel obstruction. By yesterday afternoon, she was somewhat more comfortable and having some flatus and a followup KUB showed that her oral contrast had reached the colon. She was started on some clear liquids and she has tolerated these well. She continues to pass some flatus but denies a bowel movement as of yet. She still has some discomfort but it is less. Vital signs show that she has been afebrile since admission with a pulse in the 50s to 60s and a blood pressure that is within normal limits. Oxygen saturations are normal. Intake and output shows that yesterday she had 300 mL of oral intake recorded with urine output of 950 and this morning she also has 950 mL of urine output recorded. PHYSICAL EXAMINATION: The patient is alert and oriented. She does not appear to be an obvious discomfort at present. Heart exam shows a regular rhythm. The abdomen is flat. She has bowel sounds present. The abdomen is soft and without significant tenderness to palpation throughout. IMPRESSION: The patient continues to pass flatus and her abdomen is soft and nondistended and without any obvious tenderness. She appears to be resolving whatever process she had going on yesterday. It may be that she had a very transient obstruction versus no obstruction with perhaps gastroenteritis or another similar self-limited process. PLAN: Patient will be advanced to regular diet. I will start putting her back on some more of her oral medications. She will have her IV saline locked so she can ambulate more readily and if she is doing well later in the day, I will discharge her home.
[2018-07-13 12:00] VITALS: BP 131/78
[2018-07-13 16:00] VITALS: BP 130/76
[2018-07-13] MEDS: MIRALAX *UNIT DOSE* 17GM PACKET PO SCH ×2 (18:03→21:00)
[2018-07-13 20:00] VITALS: BP 109/73
[2018-07-13] MEDS: MIRTAZAPINE 15 MG TAB PO SCH (21:01)
[2018-07-13] MEDS: busPIRone 10 MG TAB PO SCH (21:06)
[2018-07-14] VITALS: BP 123/65
[2018-07-14] MEDS: MORPHINE 4 MG/ML 1ML VIAL/SYRINGE (J2270) IV PRN ×2 (02:33→09:11)
[2018-07-14 04:00] VITALS: BP 104/70
[2018-07-14] MEDS: LEVOTHYROXINE 25MCG TABLET (0.025MG) PO SCH (06:48)
[2018-07-14 08:00] VITALS: BP 135/60
--- NOTE | 2018-07-14 08:06 | REP ---
Clinical: Follow oral contrast. Technique: Two supine views of the abdomen and pelvis. Findings: Intraluminal contrast outlines the colon which essentially excludes complete small bowel obstruction. The bowel gas pattern is otherwise nonspecific. Suture material in the left upper quadrant consistent with prior gastric bypass surgery. Osseous structures are intact and normal. Impression: No evidence for small bowel obstruction. Intraluminal contrast throughout the colon. Electronically Signed by Lyndon Bass MD 07/14/2018 07:58 A
[2018-07-14] MEDS: PANTOPRAZOLE 40MG TAB (PROTONIX) PO SCH ×2 (09:10→20:56)
[2018-07-14] MEDS: busPIRone 5 MG TAB PO SCH (09:10)
[2018-07-14] MEDS: DULoxetine 30 MG CAP (CYMBALTA) PO SCH ×2 (09:10→20:55)
[2018-07-14] MEDS: SYMBICORT 80/4.5MCG INHALER 6GM INH SCH ×2 (09:38→20:29)
[2018-07-14] MEDS ORDERED: PERCOCET 5MG/325MG TAB PO PRN (10:00)
--- NOTE | 2018-07-14 11:02 | IPNPDOC ---
Text Note Date of Service The patient was seen on 07/14/18. NOTE No acute events overnight. She is tolerating the diet with some nausea, but no emesis. She is passing flatus, but no BM yet, and she is still having 7 out of 10 abd pains in the lower abdomen. VSSAF UOP - 1950 NAD abd - soft, slight tenderness lower abdomen only, no rebound or guarding xray - no signs of SBO, the contrast is in the colon A) 57y/o female with likely partial SBO that is resolving P) reg diet ambulate laxatives senna plus carafate will plan on dc once pain improves and she has a BM Madhu Hatch DO VS,Fishbone, I+O VS, Fishbone, I+O Vital Signs Date Time Temp Pulse Resp B/P (MAP) Pulse Ox O2 Delivery O2 Flow Rate FiO2 07/14/18 09:11 18 07/14/18 08:00 97.6 59 135/60 (85) 97 07/12/18 10:28 Room Air I&O- Last 24 Hours up to 6 AM 07/14/18 06:00 Intake Total 2265 ml Output Total 2000 ml Balance 265 ml BIJU HATCH DO Jul 14, 2018 11:02
[2018-07-14] MEDS: PERCOCET 5MG/325MG TAB PO PRN ×2 (11:18→17:52)
[2018-07-14] MEDS: MIRALAX *UNIT DOSE* 17GM PACKET PO SCH ×2 (11:19→20:55)
[2018-07-14] MEDS: SENOKOT S TAB PO SCH (11:29)
[2018-07-14 16:00] VITALS: BP 118/63
[2018-07-14] MEDS: SUCRALFATE 1 GM TAB PO SCH ×3 (16:06→20:55)
[2018-07-14 20:00] VITALS: BP 120/72
[2018-07-14] MEDS: busPIRone 10 MG TAB PO SCH (20:56)
[2018-07-14] MEDS: MIRTAZAPINE 15 MG TAB PO SCH (20:56)
[2018-07-15] VITALS: BP 122/68
[2018-07-15 04:00] VITALS: BP 130/66
[2018-07-15] MEDS: PERCOCET 5MG/325MG TAB PO PRN ×3 (04:06→15:50)
[2018-07-15] MEDS: LEVOTHYROXINE 25MCG TABLET (0.025MG) PO SCH (06:21)
[2018-07-15 08:00] VITALS: BP 136/85
--- NOTE | 2018-07-15 09:25 | IPNPDOC ---
Text Note Date of Service The patient was seen on 07/15/18. NOTE No acute events overnight. She is tolerating the diet with some nausea, but no emesis. She is passing flatus, but no BM yet. Last BM was mon. VSSAF UOP - 1700 NAD abd - soft, slight tenderness lower abdomen only, no rebound or guarding xray - no signs of SBO, the contrast is in the colon A) 57y/o female with likely partial SBO that is resolving P) reg diet ambulate laxatives senna plus carafate mag citrate this am, and then d/c after she has a BM. Madhu Hatch DO VS,Fishbone, I+O VS, Fishbone, I+O Vital Signs Date Time Temp Pulse Resp B/P (MAP) Pulse Ox O2 Delivery O2 Flow Rate FiO2 07/15/18 04:48 20 07/15/18 04:00 98.8 59 130/66 (87) 97 07/12/18 10:28 Room Air I&O- Last 24 Hours up to 6 AM 07/15/18 06:00 Intake Total 1200 ml Output Total 1700 ml Balance -500 ml BIJU HATCH DO Jul 15, 2018 09:25
[2018-07-15] MEDS ORDERED: MAGNESIUM CITRATE 300 ML BTL PO ONE (09:30)
[2018-07-15] MEDS: PANTOPRAZOLE 40MG TAB (PROTONIX) PO SCH (10:10)
[2018-07-15] MEDS: SUCRALFATE 1 GM TAB PO SCH ×2 (10:10→14:54)
[2018-07-15] MEDS: DULoxetine 30 MG CAP (CYMBALTA) PO SCH (10:11)
[2018-07-15] MEDS: busPIRone 5 MG TAB PO SCH (10:14)
[2018-07-15] MEDS: SYMBICORT 80/4.5MCG INHALER 6GM INH SCH (10:17)
[2018-07-15] MEDS: MIRALAX *UNIT DOSE* 17GM PACKET PO SCH (11:45)
[2018-07-15] MEDS: SENOKOT S TAB PO SCH (11:45)
[2018-07-15 12:00] VITALS: BP 114/67
[2018-07-15] MEDS: MORPHINE 4 MG/ML 1ML VIAL/SYRINGE (J2270) IV PRN (12:56)
== END 2018-07-15 15:55 | disposition home or self-care (01) ==
LOC: M ED 02:47 → M ED INP 09:01 → M PED 11:00
PROVIDERS: ADMIT Surgery; ATTEND Surgery
DX: R10.13 Epigastric pain (principal); R10.30 Lower abdominal pain, unspecified; Z98.84 Bariatric surgery status; K21.9 Gastro-esophageal reflux disease without esophagitis; J45.909 Unspecified asthma, uncomplicated; F32.9 Major depressive disorder, single episode, unspecified; F17.210 Nicotine dependence, cigarettes, uncomplicated; Z79.51 Long term (current) use of inhaled steroids; Z79.899 Other long term (current) drug therapy; Z91.040 Latex allergy status; Z88.8 Allergy status to other drugs, medicaments and biological substances
CPT/HCPCS: 36415; 74018; 74177; 80048; 80076; 81001; 83690; 85025; 94640; 96361; 96374; 96375; 96376; 99284; C9113; J2270; J2405; Q9963; Q9967

== ENCOUNTER 2018-07-20 06:42 | Emergency (ER) | payer OTHER ==
[~2018-07-20] VITALS: Ht 170.2 cm; Wt 71.4 kg
[~2018-07-20 06:42] MED LIST changes: +B-1210009 PO; +METO10TA2 PO; +ONDA4TAB6 PO; +SING10TA32 PO; +SYNT25TA PO; +TYLE500T78 PO; +VITMTA PO
[2018-07-20] MEDS ORDERED: PANTOPRAZOLE 40MG INJ (PROTONIX) (C9113) IV ONE (07:15)
[2018-07-20] MEDS ORDERED: NS 1,000 ML IV ONE (07:15)
[2018-07-20] MEDS ORDERED: PROMETHAZINE INJ 25 MG/ML VIAL (J2550) IV ONE (07:15)
[2018-07-20 07:43] LABS: BASO # 0.1 10^3/uL (0.0-0.2); BASO % 0.8 % (0.0-1.0); EOS # 0.1 10^3/uL (0.0-0.50); EOS % 0.8 % (0.0-3.0); HEMATOCRIT 41.9 % (36.0-47.0); HEMOGLOBIN 13.7 g/dl (12.0-15.5); LYMPH # 1.8 10^3/uL (1.5-4.5); LYMPH % 21.8 % (24.0-44.0); MEAN CORPUSCULAR HGB CONC 32.7 g/dl (32.0-36.5); MEAN CORPUSCULAR VOLUME 94.8 fl (80.0-96.0); MONO # 0.5 10^3/uL (0.0-0.8); MONO % 5.8 % (0.0-5.0); NEUTROPHILS # 5.8 10^3/uL (1.8-7.7); NEUTROPHILS % 70.4 % (36.0-66.0); PLATELET COUNT, AUTOMATED 282 10^3/uL (150-450); RED BLOOD COUNT 4.42 10^6/uL (4.00-5.40); WHITE BLOOD COUNT 8.3 10^3/uL (4.0-10.0)
[2018-07-20 08:01] LABS: ALBUMIN 3.5 GM/DL (3.2-5.2); ALT/SGPT 23 U/L (12-78); BILIRUBIN,DIRECT < 0.1 MG/DL (0.0-0.2); BILIRUBIN,TOTAL 0.2 MG/DL (0.2-1.0); BLOOD UREA NITROGEN 16 MG/DL (7-18); CALCIUM LEVEL 8.3 MG/DL (8.5-10.1); CARBON DIOXIDE LEVEL 28 MEQ/L (21-32); CHLORIDE LEVEL 109 MEQ/L (98-107); CREATININE FOR GFR 0.75 MG/DL (0.55-1.30); GLOMERULAR FILTRATION RATE > 60.0 (>51); GLUCOSE, FASTING 103 MG/DL (70-100); LIPASE 84 U/L (73-393); POTASSIUM SERUM 4.4 MEQ/L (3.5-5.1); SODIUM LEVEL 143 MEQ/L (136-145)
--- NOTE | 2018-07-20 08:26 | REP ---
Acute abdominal series: Three views. History: Abdomen pain. Comparison study: July 14, 2018. Findings: Upright chest radiograph shows linear opacity consistent with fibrosis or discoid atelectasis. This is unchanged. No free subdiaphragmatic air is seen. Heart is not enlarged. 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 Supine and erect views of the abdomen show surgical sutures in the left upper quadrant and left mid abdomen. Bowel gas pattern is otherwise normal. No large or small bowel dilation is seen. No mass, organomegaly, or pathologic calcification is seen. Flank stripes are intact. Impression: Postoperative changes in the left abdomen. Fibrosis versus discoid atelectasis right base. Otherwise no acute disease. Electronically Signed by Pola Erazo MD 07/20/2018 08:17 A
[2018-07-20] MEDS ORDERED: ONDANSETRON 4MG/2ML VIAL (J2405) IV ONE (09:15)
[2018-07-20] MEDS ORDERED: PROM25TA12 PO (10:46)
[2018-07-20 11:16] VITALS: BP 115/71
== END 2018-07-20 11:25 | disposition home or self-care (01) ==
LOC: M ED 06:42
DX: R10.9 Unspecified abdominal pain (principal); R11.2 Nausea with vomiting, unspecified; Z79.890 Hormone replacement therapy; Z79.899 Other long term (current) drug therapy; Z88.8 Allergy status to other drugs, medicaments and biological substances; Z91.040 Latex allergy status; Z91.048 Other nonmedicinal substance allergy status; Z98.84 Bariatric surgery status
CPT/HCPCS: 74021; 80048; 80076; 83605; 83690; 85025; 96374; 96375; 99284; C9113; J2405

== ENCOUNTER → 2018-09-04 | Outpatient (REF) | payer OTHER, MEDICAID ==
[~2018-09-04] MED LIST changes: -/DIVA12TA OR; -/DULO30CA OR; -/DULO30CA PO; -/PANT40TA; -/PANT40TA OR; +ACET-716 PO; -ACET30TAB PO; +CYMB1CAP5 OR; +DEPA1TAB OR; -NAPR-50 PO; +NAPR-837 PO; +PROM25TA12 PO; +PROT1TAB2; +PROT1TAB2 OR; -QUET20XRTB OR; +SERO200T43 OR
== END ==
LOC: M SFHCPLAZ 15:09
PROVIDERS: ATTEND Obstetrics & Gynecology
DX: L57.0 Actinic keratosis (principal)

== ENCOUNTER → 2019-02-19 | Outpatient (REF) | payer OTHER, MEDICAID ==
[~2019-02-19] MED LIST changes: -DULO1CAP2; +DULO1CAP5
[2019-02-19 12:19] LABS: HEMOGLOBIN 13.1 g/dl (12.0-15.5); MEAN CORPUSCULAR HGB CONC 33.6 g/dl (32.0-36.5); MEAN CORPUSCULAR VOLUME 95.4 fl (80.0-96.0); PLATELET COUNT, AUTOMATED 290 10^3/uL (150-450); RED BLOOD COUNT 4.09 10^6/uL (4.00-5.40); WHITE BLOOD COUNT 8.9 10^3/uL (4.0-10.0)
[2019-02-19 13:20] LABS: ALBUMIN 3.5 GM/DL (3.2-5.2); ALT/SGPT 23 U/L (12-78); BILIRUBIN,TOTAL 0.3 MG/DL (0.2-1.0); BLOOD UREA NITROGEN 13 MG/DL (7-18); CARBON DIOXIDE LEVEL 29 MEQ/L (21-32); CHLORIDE LEVEL 107 MEQ/L (98-107); CHOLESTEROL LEVEL 180 MG/DL (<200); CHOLESTEROL RISK RATIO 2.571 (<5); CREATININE FOR GFR 0.77 MG/DL (0.55-1.30); FERRITIN 26 NG/ML (8-252); GLOMERULAR FILTRATION RATE > 60.0 (>51); GLUCOSE, FASTING 87 MG/DL (70-100); HDL CHOLESTEROL 70 MG/DL (>40); IRON (FE) 68 UG/DL (50-170); LDL CHOLESTEROL 96 MG/DL (<100); NON-HDL-C 110 MG/DL; POTASSIUM SERUM 4.1 MEQ/L (3.5-5.1); SODIUM LEVEL 141 MEQ/L (136-145); TOTAL 25(OH) VITAMIN D 29.9 NG/ML (30.0-100.0); TOTAL PROTEIN 7.2 GM/DL (6.4-8.2); TRIGLYCERIDES LEVEL 70 MG/DL (<150); VITAMIN B12 LEVEL 1049 PG/ML
[2019-02-19 14:00] LABS: FOLATE > 24.0 NG/ML
== END ==
LOC: M LABDRAW1 11:36
PROVIDERS: ATTEND Family Medicine
DX: F33.41 Major depressive disorder, recurrent, in partial remission (principal); Z98.890 Other specified postprocedural states

== ENCOUNTER 2019-06-06 05:50 | Inpatient (IN) | payer MEDICAID, OTHER ==
[~2019-06-06] VITALS: Ht 170.2 cm; Wt 59.1 kg
[2019-06-06] MEDS: LEVOTHYROXINE 25MCG TABLET (0.025MG) PO SCH (06:00)
[2019-06-06 06:39] LABS: BASO # 0.1 10^3/uL (0.0-0.2); BASO % 0.8 % (0.0-1.0); EOS # 0.3 10^3/uL (0.0-0.5); HEMATOCRIT 41.5 % (36.0-47.0); HEMOGLOBIN 13.2 g/dl (12.0-15.5); LYMPH # 2.5 10^3/uL (1.5-5.0); LYMPH % 27.9 % (24.0-44.0); MEAN CORPUSCULAR HEMOGLOBIN 30.6 pg (27.0-33.0); MEAN CORPUSCULAR HGB CONC 31.8 g/dl (32.0-36.5); MEAN CORPUSCULAR VOLUME 96.3 fl (80.0-96.0); MONO # 0.8 10^3/uL (0.0-0.8); MONO % 9.1 % (0.0-5.0); NEUTROPHILS # 5.3 10^3/uL (1.5-8.5); NEUTROPHILS % 58.8 % (36.0-66.0); PLATELET COUNT, AUTOMATED 300 10^3/uL (150-450); RED BLOOD COUNT 4.31 10^6/uL (4.00-5.40)
[2019-06-06] MEDS ORDERED: NS 1,000 ML IV ONE (06:45)
[2019-06-06] MEDS ORDERED: PANTOPRAZOLE 40MG INJ (PROTONIX) (C9113) IV ONE (06:45)
[2019-06-06] MEDS ORDERED: ALBUTEROL SULFATE 2.5 MG/0.5 ML INH NEB SOLN NEB ONE (06:45)
[2019-06-06] MEDS ORDERED: ONDANSETRON 4MG/2ML VIAL (J2405) IV ONE (07:00)
[2019-06-06] MEDS ORDERED: ISOVUE-370 76% 100ML VIAL (Q9967) As Ordered ONE (07:02)
[2019-06-06 07:07] LABS: ALBUMIN 3.1 GM/DL (3.2-5.2); ALT/SGPT 54 U/L (12-78); BILIRUBIN,DIRECT < 0.1 MG/DL (0.0-0.2); BILIRUBIN,TOTAL 0.3 MG/DL (0.2-1.0); BLOOD UREA NITROGEN 10 MG/DL (7-18); CALCIUM LEVEL 8.4 MG/DL (8.5-10.1); CARBON DIOXIDE LEVEL 30 MEQ/L (21-32); CHLORIDE LEVEL 109 MEQ/L (98-107); CK-MB VALUE MASS < 1.0 NG/ML (<3.6); CPK CREATINE PHOSPHOKINASE 73 U/L (26-192); CREATININE FOR GFR 0.74 MG/DL (0.55-1.30); GLOMERULAR FILTRATION RATE > 60.0 (>51); GLUCOSE, FASTING 88 MG/DL (70-100); LIPASE 638 U/L (73-393); MB/CK RELATIVE INDEX 1.37 (< OR =4); POTASSIUM SERUM 4.4 MEQ/L (3.5-5.1); SODIUM LEVEL 143 MEQ/L (136-145); TOTAL PROTEIN 7.2 GM/DL (6.4-8.2); TROPONIN I < 0.02 NG/ML (< 0.10)
[2019-06-06] MEDS: SUCRALFATE SUSP 1GM/10ML UD PO SCH ×4 (07:30→20:25)
--- NOTE | 2019-06-06 08:21 | REPVR ---
PROCEDURE INFORMATION: Exam: CT Abdomen And Pelvis With Contrast Exam date and time: 06/06/2019 6:32 AM Age: 58 years old Clinical indication: Abdominal pain; Generalized; Additional info: Abd pain n/v HX of sbo TECHNIQUE: Imaging protocol: Computed tomography of the abdomen and pelvis with intravenous contrast. Radiation optimization: All CT scans at this facility use at least one of these dose optimization techniques: automated exposure control; mA and/or kV adjustment per patient size (includes targeted exams where dose is matched to clinical indication); or iterative reconstruction. Contrast material: ISO; Contrast volume: 100 ml; Contrast route: AC; COMPARISON: CT ABD/PEL W/IV ORAL CONTRAS 07/12/2018 4:58 AM FINDINGS: Lungs: Bibasilar linear atelectasis or scarring. Liver: Mild hepatomegaly. 3-4 mm indeterminate low-attenuation right hepatic lobe lesion. Gallbladder and bile ducts: Normal. No calcified stones. No ductal dilation. Pancreas: Normal. No ductal dilation. Spleen: Normal. No splenomegaly. Adrenals: Normal. No mass. Kidneys and ureters: 1 cm indeterminate low-attenuation right renal lesion. No hydronephrosis or nephrolithiasis bilaterally. Stomach and bowel: Status post Eleazar-en-Y gastric bypass. Mild bowel wall thickening involving several loops of small and large bowel likely reflecting under distension. Mild enterocolitis cannot be entirely excluded. Appendix: No evidence of appendicitis. Intraperitoneal space: Unremarkable. No free air. No significant fluid collection. Vasculature: Atherosclerotic disease of the abdominal aorta. Lymph nodes: Scattered subcentimeter nonspecific mesenteric lymph nodes. Bladder: Unremarkable as visualized. Reproductive: Status post hysterectomy. Bones/joints: Mild degenerative changes at L5-S1. Soft tissues: Unremarkable. IMPRESSION: 1. Mild hepatomegaly. 2. Normal appendix. 3. No hydronephrosis or nephrolithiasis bilaterally. Electronically signed by: Isaias Ponce On 06/06/2019 08:21:08 AM
[2019-06-06] MEDS ORDERED: MORPHINE 30 MG TAB **MSIR PO PRN (09:15)
[2019-06-06] MEDS ORDERED: NALOXONE INJ 0.4 MG/1 ML VIAL (J2310) IV PRN (09:15)
[2019-06-06] MEDS ORDERED: BUSP15TA47 PO (09:37)
[2019-06-06] MEDS ORDERED: REME30TA PO (09:37)
[2019-06-06] MEDS ORDERED: VITA200015 PO (09:37)
[2019-06-06] MEDS ORDERED: ONDA8TAB8 PO (09:37)
[2019-06-06] MEDS ORDERED: ACET-683 PO (09:37)
[2019-06-06] MEDS ORDERED: MIRA3350 PO (09:38)
[2019-06-06] MEDS ORDERED: DOCU100C17 PO (09:38)
[2019-06-06] MEDS ORDERED: KETOROLAC 30 MG/ML VIAL (J1885) IV ONE (10:00)
[2019-06-06] MEDS ORDERED: NS 2,000 ML IV ONE (10:00)
[2019-06-06 10:10] VITALS: BP 152/77
[2019-06-06] MEDS: MORPHINE 2 MG/ML 1ML VIAL (J2270) IV PRN ×2 (11:10→17:33)
[2019-06-06] MEDS: METOCLOPRAMIDE INJ 10MG/2ML VIAL (J2765) IV SCH ×2 (12:35→17:15)
[2019-06-06] MEDS: CYANOCOBALAMIN 500 MCG TAB PO SCH (13:23)
[2019-06-06] MEDS: busPIRone 5 MG TAB PO SCH (13:24)
[2019-06-06] MEDS: DULoxetine 30 MG CAP (CYMBALTA) PO SCH (13:24)
[2019-06-06] MEDS: MULTIVITAMINS/MINERALS THERAP 1 TAB PO SCH (13:25)
[2019-06-06] MEDS: miSOPROStol 200 MCG TAB (S0191) PO SCH ×3 (13:25→20:26)
[2019-06-06] MEDS: ACETAMINOPHEN 500 MG TAB PO SCH ×2 (13:51→20:27)
[2019-06-06] MEDS: VITAMIN D 1,000 INTERNATIONAL UNITS TABLET PO SCH (13:52)
[2019-06-06] MEDS: ONDANSETRON 4MG/2ML VIAL (J2405) IV SCH ×2 (14:37→20:27)
--- NOTE | 2019-06-06 15:02 | HPE ---
DATE OF ADMISSION: 06/06/2019 CHIEF COMPLAINT: Abdominal pain, nausea, vomiting and diarrhea. HISTORY OF PRESENT ILLNESS: This is a 58-year-old female with a history of chronic gastritis, hiatal hernia, gastric bypass, follows with Dr. Lowe of gastroenterology, presented to the emergency room with a one week history of upper respiratory infection which then progressed on to two days of nausea, vomiting and abdominal pain accompanied with two episodes of explosive watery diarrhea. The patient denied any sick contacts, recent travel. The patient has been eating at home and not at restaurants. She describes the nausea and vomiting as bilious, non-projectile, about 3-6 times over the past two days, unable to keep any food down. She has had no fever, has on and off chills, but has had diffuse abdominal pain described as achy. Despite taking Reglan and Pepto-Bismol, patient has had persistent symptoms. She denied any hematemesis, coffee ground emesis, weight gain, weight loss, denies black tarry stools or bright red blood per rectum. No other family members are afflicted with the same symptoms. Her last meal was about four days ago. Otherwise, denies any muscle aches, changes in vision, joint pains, dysphagia, odynophagia. Denies any food regurgitation. She continues to smoke 6-10 cigarettes, quit about 15 years ago, but has had no dysphagia to solids or liquids. Denies any odynophagia as well. No chest pain, pressure, tightness, shortness of breath (SOB), palpitations, lightheadedness. Complains of generalized weakness from having diarrhea, which is nonbloody. The patient admits to taking Colace and MiraLAX at home despite having diarrhea. In the ER, patient was afebrile. White count was normal. CT abdomen and pelvis showed mild hepatomegaly, mild bowel wall thickening, which may reflect underdistention and mild enterocolitis could not be excluded. Lipase level is slightly elevated. Hospitalist service was called for admission for intractable nausea and vomiting, unable to keep food down with mild enterocolitis and elevated lipase 638. PAST MEDICAL HISTORY: Obstructive sleep apnea (PAU), CPAP. Diastolic heart failure, grade 1. Normal ejection fraction. Anxiety panic disorder. Depression. Bariatric surgery at [facility] in 2013. Asthma. Hyperlipidemia. Reflux. Gastritis. Active tobacco use. Chronic back pain. Onychomycosis and ingrown toenails. ALLERGIES: 1. TRAZODONE - nausea, vomiting. 2. CHLORTHALIDONE - causes depression. PAST SURGICAL HISTORY: EGD by Dr. Lowe in 2013, repeat 05/2016, results are unavailable. Hysterectomy 2007. Gastric bypass 2013. Colonoscopy with biopsy 2013. FAMILY HISTORY: Father in his 60s with myocardial infarction ([place]), history of coronary artery disease (CAD). Mother alive age 73 with gamma knife due to brain tumor. Two sisters, one is a brittle diabetic, one brother with diverticulitis with resection. HOME MEDICATIONS: - acetaminophen 1 gram every 6 hours as needed - albuterol two puffs every 4 hours as needed - Colace 100 daily - Sarafem 8 mg three times a day as needed - Protonix 40 mg twice a day - MiraLAX 17 grams at bedtime as needed - Carafate 10 mL by mouth before meals - Citracal one tab daily - buspirone 15 mg daily, 30 mg at bedtime - vitamin D 2000 units daily - B12 1000 units daily - Cymbalta 30 at bedtime, 60 daily - Synthroid 25 mcg daily - Remeron 30 mg at bedtime - misoprostol 200 mcg four times a day - multivitamin one tablet daily REVIEW OF SYSTEMS: As per HPI, 12 point system otherwise negative. SOCIAL HISTORY: Patient smoked since the age of 17, quit two years ago, restarted again, now has 6-10 cigarettes a day. 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 PHYSICAL EXAMINATION: Temperature 98.4, pulse 69, respiratory rate 17, blood pressure 152/77, 97% on room air. General: Patient appears older than her stated age in mild discomfort, is lying in position. The patient has no icterus, no jaundice, no JVD, no thyromegaly. Dry mucous membranes with chapped lips. No jugular venous distention (JVD). Cervical lymphadenopathy. Lungs are clear to auscultation. No wheezing, rales or rhonchi. Heart S1, S2 sinus rhythm. No murmurs, rubs or gallops. Abdomen is soft, tender in the epigastric across the abdomen. No rebound or guarding. Positive bowel sounds times four quadrants. No hepatosplenomegaly or abdominal bruits. Extremities no cyanosis, clubbing or any pitting edema. LABORATORY DATA: White count 9, hemoglobin 13, hematocrit 41, platelet count 300. Sodium 143, potassium 4.4, chloride 109, bicarb 30, BUN 10, creatinine 0.74, glucose of 88, AST 45, ALT 54, total bilirubin 0.3, direct bilirubin less than 0.1, alkaline phosphatase 276, troponin less than 0.02, lipase 638. IMAGING STUDIES: CT abdomen and pelvis 06/06/2019 - mild hepatomegaly. No ductal dilatation. Normal pancreas. No splenomegaly. Adrenals have no mass. Right renal lesion 1 cm, indeterminate, no hydronephrosis or nephrolithiasis. Eleazar-en-Y gastric bypass. Mild bowel wall thickening with several loops of small and large bowel, likely representing underdistention. Mild enterocolitis cannot be entirely excluded. No evidence of appendicitis. No free air. No significant fluid collection. Atherosclerotic of the abdominal aorta. Scattered subcentimeter nonspecific mesenteric lymphadenopathy status post hysterectomy. Degenerative changes at L5-S1. ASSESSMENT/PLAN: This is a 58-year-old female, active smoker, with history of gastric bypass surgery as a Eleazar-en-Y surgery, gastritis, reflux and hiatal hernia, depression, normal stress test 09/2013, CHF grade 1 diastolic dysfunction 2012, PAU on chronic CPAP, dyslipidemia, asthma, hiatal hernia, gastritis, reflux disease, chronic back pain, who presents with complaints of intractable nausea, vomiting diarrhea and abdominal pain found to have enterocolitis on CT with mild underdistention. Active issues are as follows: 1. Enterocolitis. Patient has been having nausea, vomiting, abdominal pain and diarrhea. Will check a GI panel, supportive care with IV fluids, Reglan and Zofran alternatively, as well as morphine as needed. Hold the patient's bowel regimen in light of recent diarrhea. 2. History of gastritis, hiatal hernia and reflux disease Continue on proton pump inhibitor (PPI) twice a day and Carafate 1 gram before meals and at bedtime. Liquid diet for now. 3. Hypothyroidism. Continue on Synthroid. 4. Anxiety/depression. May continue on home dose of medications. 5. Active tobacco use. Tobacco cessation counseling has been provided. 6. History of asthma. Currently with clear lungs. 7. Deep vein thrombosis (DVT) prophylaxis with compression stockings. [facility]
[2019-06-06 16:00] VITALS: BP 125/78
--- NOTE | 2019-06-06 19:20 | REP ---
Portable chest x-ray: Single view. History: Fever. Comparison study: July 20, 2018. Findings: There is mild linear plate-like atelectasis in the left base. There is some mild linear fibrosis in the right base. No infiltrate is seen. Bullous changes are noted in the right apex unchanged. Heart is not enlarged. Lung horne are otherwise clear. There is a benign enchondroma in the left proximal humerus unchanged. No acute bony abnormality. There is diffuse osteopenia. Impression: Plate-like atelectasis left base and linear fibrosis right base. Otherwise no acute disease. Electronically Signed by Pola Erazo MD 06/06/2019 07:12 P
[2019-06-06 20:00] VITALS: BP 109/59
[2019-06-06] MEDS: PANTOPRAZOLE 40MG INJ (PROTONIX) (C9113) IV SCH (20:25)
[2019-06-06] MEDS ORDERED: DULoxetine 30 MG CAP (CYMBALTA) PO SCH (21:00)
[2019-06-06] MEDS ORDERED: MIRTAZAPINE 15 MG TAB PO SCH (21:00)
[2019-06-06] MEDS ORDERED: busPIRone 5 MG TAB PO SCH (21:00)
[2019-06-07] MEDS: METOCLOPRAMIDE INJ 10MG/2ML VIAL (J2765) IV SCH ×2 (00:21→05:54)
[2019-06-07] MEDS: ONDANSETRON 4MG/2ML VIAL (J2405) IV SCH (02:29)
[2019-06-07] MEDS: LEVOTHYROXINE 25MCG TABLET (0.025MG) PO SCH (05:54)
[2019-06-07 06:00] VITALS: BP 149/73
[2019-06-07 07:23] LABS: HEMATOCRIT 38.7 % (36.0-47.0); HEMOGLOBIN 12.3 g/dl (12.0-15.5); MEAN CORPUSCULAR HGB CONC 31.8 g/dl (32.0-36.5); MEAN CORPUSCULAR VOLUME 97.5 fl (80.0-96.0); PLATELET COUNT, AUTOMATED 279 10^3/uL (150-450); RED BLOOD COUNT 3.97 10^6/uL (4.00-5.40)
[2019-06-07 07:50] LABS: ALT/SGPT 42 U/L (12-78); BILIRUBIN,TOTAL 0.3 MG/DL (0.2-1.0); BLOOD UREA NITROGEN 5 MG/DL (7-18); CALCIUM LEVEL 8.6 MG/DL (8.5-10.1); CARBON DIOXIDE LEVEL 29 MEQ/L (21-32); CHLORIDE LEVEL 109 MEQ/L (98-107); CREATININE FOR GFR 0.76 MG/DL (0.55-1.30); GLOMERULAR FILTRATION RATE > 60.0 (>51); GLUCOSE, FASTING 92 MG/DL (70-100); SODIUM LEVEL 142 MEQ/L (136-145)
[2019-06-07] MEDS: SUCRALFATE SUSP 1GM/10ML UD PO SCH (08:24)
[2019-06-07] MEDS: CYANOCOBALAMIN 500 MCG TAB PO SCH (08:24)
[2019-06-07] MEDS: DULoxetine 30 MG CAP (CYMBALTA) PO SCH (08:25)
[2019-06-07] MEDS: busPIRone 5 MG TAB PO SCH (08:25)
[2019-06-07] MEDS: MULTIVITAMINS/MINERALS THERAP 1 TAB PO SCH (08:25)
[2019-06-07] MEDS: ACETAMINOPHEN 500 MG TAB PO SCH (08:25)
[2019-06-07] MEDS: VITAMIN D 1,000 INTERNATIONAL UNITS TABLET PO SCH (08:26)
[2019-06-07] MEDS: miSOPROStol 200 MCG TAB (S0191) PO SCH (08:26)
[2019-06-07] MEDS: PANTOPRAZOLE 40MG INJ (PROTONIX) (C9113) IV SCH (08:26)
[2019-06-07 08:30] VITALS: BP 135/83
[2019-06-07] MEDS ORDERED: METOCLOPRAMIDE 10 MG TAB PO SCH (12:00)
--- NOTE | 2019-06-07 20:14 | ECGEPIP ---
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
--- NOTE | 2019-06-07 20:53 | DSES ---
DATE OF ADMISSION: 06/06/2019 DATE OF DISCHARGE: 06/07/2019 PRIMARY DISCHARGE DIAGNOSES: 1. Coronavirus gastroenteritis. 2. History of gastritis. 3. Hiatal hernia. 4. Gastroesophageal reflux disease. 5. History of gastric bypass surgery. 6. Obstructive sleep apnea. 7. Diastolic heart failure with preserved ejection fraction, grade 1 diastolic. 8. Anxiety. 9. Depression. 10. Bariatric surgery. 11. Asthma. 12. Hyperlipidemia. 13. Active tobacco use. 14. Chronic back pain. DISCHARGE MEDICATIONS: - acetaminophen 1 gram every 6 as needed for pain - albuterol two puffs every 4 as needed - buspirone 15 mg daily, 30 mg at bedtime - vitamin D/calcium one tablet daily - vitamin D 2000 units daily - cyanocobalamin 1000 mg daily - duloxetine 60 mg daily, 30 mg at bedtime - Synthroid 25 mcg daily - Remeron 30 mg at bedtime - misoprostol 200 mg four times a day - multivitamin one tablet daily - Zofran 8 mg three times a day - Protonix 40 mg twice a day - Carafate 10 mL by mouth before food DISCHARGE INSTRUCTIONS: Patient is to follow strict handwashing, and should she develop fever 7 days from discharge, she is to contact her primary care physician to monitor for secondary bacterial pneumonia. HOSPITAL COURSE: This is a 58-year-old female who presented to the emergency room with 2-day history of nausea, vomiting, abdominal pain, and two episodes of explosive watery diarrhea. Patient has been eating at home and not at restaurants Described the nausea and vomiting, which is bilious, nonprojectile, three to six times over the past 2 days without any dysphagia, odynophagia, or weight loss. No bright red blood per rectum, melena, or black tarry stools. Patient does admit to continued use of her Colace and MiraLax despite having diarrhea She was initially febrile in the emergency room but developed 100.3 temperature. Chest x-ray was negative. CT abdomen and pelvis showed mild enterocolitis. Patient had no electrolyte abnormalities or renal failure. She tolerated a liquid diet. Started on Reglan, Zofran scheduled, Carafate and proton pump inhibitor (PPI) overnight with resolution of her symptoms. No diarrhea during this episode. Respiratory panel was positive for Coronavirus, HKU1. Patient was placed on contact and droplet precautions. She had no hypoxia or respiratory distress and was 95-99% on room air with normal chest x-ray. Patient was discharged in stable condition to follow strict handwashing at home and to return to work on June 13. PHYSICAL EXAMINATION ON DISCHARGE: Temperature 98.1, pulse 69, respiratory rate 18, blood pressure 149/73, 97% on room air. GENERAL: Awake, alert, oriented times three, answering questions appropriately. Anicteric sclerae. No jaundice. No pallor. No use of respiratory accessory muscles. No conversational dyspnea. Able to speak in full sentences. No jugular venous distention (JVD). No thyromegaly. Moist mucous membranes. No cervical lymphadenopathy, thyromegaly, or pharyngeal erythema. LUNGS: Clear to auscultation. No wheezes, rales, or rhonchi. Air entry is equal bilaterally. HEART: S1, S2, sinus rhythm. ABDOMEN: Soft, nontender, nondistended. Positive bowel sounds times four quadrants. EXTREMITIES: No clubbing, cyanosis, or pitting edema. Microbiology: Coronavirus. LABORATORY DATA: White count 8, hemoglobin 12, hematocrit 38, platelet count 279. Sodium 142, potassium 4, chloride 109, bicarbonate 29, BUN 5, creatinine 0.76, glucose of 92. Troponin less than 0.02. C-reactive protein is 2.14. Blood cultures are pending. CT abdomen and pelvis: Mild enterocolitis. Mild hepatomegaly. Right hepatic lobe lesion, low attenuation, 3-4 mm. No ductal dilatation. No splenomegaly. A 1 cm right renal lesion. No hydronephrosis or nephrolithiasis. Normal appendix. Mild hepatomegaly. Degenerative joint disease at L5-S1. TIME SPENT ON HOSPITAL DISCHARGE: 30 minutes. MTDD
[2019-06-07] MEDS ORDERED: busPIRone 10 MG TAB PO SCH (21:00)
== END 2019-06-07 10:10 | disposition home or self-care (01) | DRG 723 ==
LOC: M ED 05:50 → M ED INP 09:05 → ENRESERV 09:33 → M PED 10:10
PROVIDERS: ADMIT General Practice; ATTEND General Practice
DX: B34.2 Coronavirus infection, unspecified (principal); I50.30 Unspecified diastolic (congestive) heart failure; K52.9 Noninfective gastroenteritis and colitis, unspecified; E03.9 Hypothyroidism, unspecified; F41.9 Anxiety disorder, unspecified; F32.9 Major depressive disorder, single episode, unspecified; F17.210 Nicotine dependence, cigarettes, uncomplicated; J45.909 Unspecified asthma, uncomplicated; K21.9 Gastro-esophageal reflux disease without esophagitis; K29.50 Unspecified chronic gastritis without bleeding; Z98.84 Bariatric surgery status; G47.33 Obstructive sleep apnea (adult) (pediatric); Z88.8 Allergy status to other drugs, medicaments and biological substances; Z79.51 Long term (current) use of inhaled steroids; Z79.899 Other long term (current) drug therapy

== ENCOUNTER 2019-06-11 10:59 | Emergency (ER) | payer OTHER ==
[~2019-06-11] VITALS: Ht 170.2 cm; Wt 73.6 kg
[~2019-06-11 10:59] MED LIST changes: +ACET-683 PO; +DOCU100C17 PO; +MIRA3350 PO; +ONDA8TAB8 PO; +REME30TA PO; +VITA200015 PO
[2019-06-11] MEDS ORDERED: NS 1,000 ML IV ONE (13:30)
[2019-06-11 13:53] LABS: BASO # 0.1 10^3/uL (0.0-0.2); BASO % 0.8 % (0.0-1.0); EOS # 0.2 10^3/uL (0.0-0.5); EOS % 2.2 % (0.0-3.0); HEMATOCRIT 42.5 % (36.0-47.0); HEMOGLOBIN 13.7 g/dl (12.0-15.5); LYMPH # 2.4 10^3/uL (1.5-5.0); LYMPH % 25.8 % (24.0-44.0); MEAN CORPUSCULAR HEMOGLOBIN 31.1 pg (27.0-33.0); MEAN CORPUSCULAR HGB CONC 32.2 g/dl (32.0-36.5); MEAN CORPUSCULAR VOLUME 96.6 fl (80.0-96.0); MONO # 0.8 10^3/uL (0.0-0.8); NEUTROPHILS # 5.9 10^3/uL (1.5-8.5); NEUTROPHILS % 62.4 % (36.0-66.0); PLATELET COUNT, AUTOMATED 382 10^3/uL (150-450); WHITE BLOOD COUNT 9.5 10^3/uL (4.0-10.0)
[2019-06-11] MEDS ORDERED: KETOROLAC 30 MG/ML VIAL (J1885) IV ONE (14:00)
[2019-06-11 14:20] LABS: ALBUMIN 3.5 GM/DL (3.2-5.2); ALT/SGPT 46 U/L (12-78); BILIRUBIN,DIRECT < 0.1 MG/DL (0.0-0.2); BILIRUBIN,TOTAL 0.2 MG/DL (0.2-1.0); LIPASE 115 U/L (73-393); TOTAL PROTEIN 7.6 GM/DL (6.4-8.2)
--- NOTE | 2019-06-11 14:33 | REP ---
CHEST, PORTABLE: AP portable view of the chest is performed and compared to prior study of 06/06/2019. There is again bibasilar fibrotic change. There is no acute infiltrate. Heart is not significantly enlarged. There is some mild tortuosity of the thoracic aorta. Mediastinal silhouette is unchanged. IMPRESSION: Stable, chronic findings without acute infiltrate. Electronically Signed by Travis Shannon MD 06/12/2019 01:42 P
[2019-06-11 16:00] VITALS: BP 148/86
--- NOTE | 2019-06-11 16:48 | REP ---
Maxillofacial CT without IV contrast for facial pain: There are no comparisons. The frontal sinuses are undeveloped. There is complete opacification of the maxillary sinuses bilaterally. There is almost complete opacification of the ethmoid sinuses. The sphenoid sinuses are clear. The mastoid air cells are clear. I suspect there has been bilateral FESS surgery. The ocular lenses, globes retro orbital areas of the orbits are unremarkable. Impression: Ethmoid and maxillary sinusitis as described. I suspect there has been bilateral FESS surgery. Electronically Signed by Travis Benson MD 06/11/2019 04:40 P
[2019-06-11] MEDS ORDERED: NASA0.9A NARES (17:30)
[2019-06-11] MEDS ORDERED: AUGM875T28 PO (17:30)
[2019-06-11] MEDS ORDERED: AUGMENTIN 875 MG TAB PO ONE (17:30)
== END 2019-06-11 17:56 | disposition home or self-care (01) ==
LOC: M ED 10:59
DX: J01.90 Acute sinusitis, unspecified (principal); I50.9 Heart failure, unspecified; G47.33 Obstructive sleep apnea (adult) (pediatric); F41.9 Anxiety disorder, unspecified; F32.9 Major depressive disorder, single episode, unspecified; K21.9 Gastro-esophageal reflux disease without esophagitis; F17.200 Nicotine dependence, unspecified, uncomplicated; Z79.899 Other long term (current) drug therapy; J30.2 Other seasonal allergic rhinitis; Z91.89 Other specified personal risk factors, not elsewhere classified; Z91.040 Latex allergy status; Z88.5 Allergy status to narcotic agent; Z88.8 Allergy status to other drugs, medicaments and biological substances
CPT/HCPCS: 70486; 71045; 80047; 80076; 83690; 85025; 87486; 87581; 87633; 87798; 96361; 96374; 99284; J1885

== ENCOUNTER → 2020-01-03 | Outpatient (REF) | payer BC, OTHER ==
[~2020-01-03] MED LIST changes: -ASPI81TA85 PO; +ASPI81TA86 PO; +AUGM875T28 PO; +NASA0.9A NARES; +PANT40TA29 PO; -PANT40TA3 PO
== END ==
LOC: M LAB REF 15:42
PROVIDERS: ATTEND Family Medicine
DX: R30.0 Dysuria (principal); R39.15 Urgency of urination

== ENCOUNTER → 2020-03-11 | Outpatient (CLI) | payer OTHER, MEDICAID ==
[2020-03-11 17:30] LABS: BLOOD UREA NITROGEN 18 MG/DL (7-18); CARBON DIOXIDE LEVEL 28 MEQ/L (21-32); CHLORIDE LEVEL 104 MEQ/L (98-107); CREATININE FOR GFR 0.73 MG/DL (0.55-1.30); GLOMERULAR FILTRATION RATE > 60.0 (>51); GLUCOSE, FASTING 83 MG/DL (70-100); POTASSIUM SERUM 4.4 MEQ/L (3.5-5.1); SODIUM LEVEL 137 MEQ/L (136-145)
[2020-03-11 17:31] LABS: CALCIUM LEVEL 8.7 MG/DL (8.5-10.1); MAGNESIUM LEVEL 2.2 MG/DL (1.8-2.4)
== END ==
LOC: M WUC 14:52
PROVIDERS: ATTEND Family Medicine
DX: E03.9 Hypothyroidism, unspecified (principal)

== ENCOUNTER → 2020-06-12 | Outpatient (CLI) | payer BC, OTHER, MEDICAID ==
[~2020-06-12] MED LIST changes: +MIRT-60 PO; -REME30TA PO
[2020-06-12 16:04] LABS: HEMATOCRIT 39.7 % (36.0-47.0); MEAN CORPUSCULAR HEMOGLOBIN 32.4 pg (27.0-33.0); MEAN CORPUSCULAR HGB CONC 32.7 g/dl (32.0-36.5); PLATELET COUNT, AUTOMATED 281 10^3/uL (150-450); RED BLOOD COUNT 4.01 10^6/uL (4.00-5.40); WHITE BLOOD COUNT 8.1 10^3/uL (4.0-10.0)
[2020-06-12 16:20] LABS: FERRITIN 34 NG/ML (8-252); IRON (FE) 52 UG/DL (50-170); PERCENT SATURATION 19.8 % (13.2-45.0); TOTAL IRON BINDING CAPACITY 263 UG/DL (250-450)
[2020-06-12 16:28] LABS: FOLATE > 24.0 NG/ML; TOTAL 25(OH) VITAMIN D 31.8 NG/ML (30.0-100.0); VITAMIN B12 LEVEL 1182 PG/ML
== END ==
LOC: M WUC 14:48
PROVIDERS: ATTEND Family Medicine
DX: R25.2 Cramp and spasm (principal); Z98.84 Bariatric surgery status

== ENCOUNTER → 2020-08-13 | Outpatient (CLI) | payer BC, MEDICAID ==
--- NOTE | 2020-08-13 11:09 | REPMRS ---
Patient History The patient states she had a clinical breast exam in 04/2020. Family history of breast cancer in maternal aunt. 3D TOMOSYNTHESIS WAS PERFORMED. The Simran Lopez lifetime risk for breast cancer is 11.9%. Volpara breast density c. Digital Woman Screen Mammo: August 13, 2020 - Exam #: [id number] Bilateral CC and MLO view(s) were taken. Technologist: Yelitza Avalos, Technologist Prior study comparison: May 21, 2014, right breast digital mammo diagnostic unilateral, performed at [facility]. July 2013, bilateral digital woman screen mammo, performed at [facility]. FINDINGS: The breast tissue is heterogeneously dense. This may lower the sensitivity of mammography. There has been no change in the appearance of the mammogram from the prior studies. There is a moderate amount of residual fibroglandular tissue which is fairly symmetric. There is no interval development of dominant mass, areas of architectural distortion, or clustered microcalcification typical of malignancy. Assessment: BI-RADS/ACR category 1 mammogram. Negative Mammogram. Recommendation Routine screening mammogram in 1 year (for women over age 40). This mammogram was interpreted with the aid of an FDA-approved computer-aided dectection system. Electronically Signed By: Travis Shannon MD 08/13/20 [id number]
== END ==
LOC: M WHC 09:55
PROVIDERS: ATTEND Family Medicine
DX: Z12.31 Encounter for screening mammogram for malignant neoplasm of breast (principal)

== ENCOUNTER → 2020-09-09 | Outpatient (CLI) | payer BC ==
--- NOTE | 2020-09-09 10:43 | REP ---
INDICATION: PAIN. COMPARISON: None. TECHNIQUE: Four views of the thoracic spine are provided. FINDINGS: Thoracic vertebral body heights are preserved. Alignment is normal on lateral radiograph. There is degenerative discogenic spurring in the lower thoracic spine. Pedicles and posterior elements are intact. No paravertebral soft tissue mass or edema is seen. No fracture or collapse is noted. Swimmer's lateral view shows minimal spurring at C3-4. IMPRESSION: Degenerative disc changes in the lower thoracic spine. No acute abnormality. <Electronically signed by Vance Erazo > 09/09/20 [id number]
--- NOTE | 2020-09-09 11:39 | REP ---
INDICATION: PAIN. COMPARISON: None. TECHNIQUE: AP and frogleg views of the right hip are provided. FINDINGS: Right femoral head is smooth and rounded. Right hip joint space is preserved. There is minimal superior acetabular spurring. Periarticular soft tissues are unremarkable. Right hemipelvis appears intact. IMPRESSION: Minimal superior acetabular spurring. Otherwise negative right hip radiographs. <Electronically signed by Vance Erazo > 09/09/20 [id number]
== END ==
LOC: M WUC 09:39
PROVIDERS: ATTEND Family Medicine
DX: M25.751 Osteophyte, right hip (principal); M51.34 Other intervertebral disc degeneration, thoracic region; M25.551 Pain in right hip

== ENCOUNTER 2020-11-11 07:59 | Emergency (ER) | payer BC, MEDICAID ==
[~2020-11-11] VITALS: Ht 170.2 cm; Wt 66.4 kg
[2020-11-11] MEDS ORDERED: PANTOPRAZOLE 40MG VIAL (C9113 PER 1) IV ONE (08:25)
[2020-11-11] MEDS ORDERED: ONDANSETRON 4MG/2ML VIAL IV ONE ×2 (08:25→09:45)
[2020-11-11 08:51] LABS: BASO # 0.1 10^3/uL (0.0-0.2); BASO % 0.8 % (0.0-1.0); EOS # 0.1 10^3/uL (0.0-0.5); EOS % 1.4 % (0.0-3.0); HEMATOCRIT 39.9 % (36.0-47.0); HEMOGLOBIN 13.5 g/dl (12.0-15.5); LYMPH # 2.3 10^3/uL (1.5-5.0); LYMPH % 30.4 % (24.0-44.0); MEAN CORPUSCULAR HEMOGLOBIN 32.9 pg (27.0-33.0); MEAN CORPUSCULAR HGB CONC 33.8 g/dl (32.0-36.5); MEAN CORPUSCULAR VOLUME 97.3 fl (80.0-96.0); MONO # 0.5 10^3/uL (0.0-0.8); MONO % 6.8 % (2.0-8.0); NEUTROPHILS # 4.6 10^3/uL (1.5-8.5); NEUTROPHILS % 60.2 % (36.0-66.0); PLATELET COUNT, AUTOMATED 257 10^3/uL (150-450); WHITE BLOOD COUNT 7.6 10^3/uL (4.0-10.0)
[2020-11-11 09:16] LABS: ALBUMIN 3.4 GM/DL (3.2-5.2); ALT/SGPT 30 U/L (12-78); BILIRUBIN,DIRECT < 0.1 MG/DL (0.0-0.2); BILIRUBIN,TOTAL 0.2 MG/DL (0.2-1.0); BLOOD UREA NITROGEN 16 MG/DL (7-18); CALCIUM LEVEL 8.8 MG/DL (8.5-10.1); CARBON DIOXIDE LEVEL 25 MEQ/L (21-32); CHLORIDE LEVEL 108 MEQ/L (98-107); CK-MB VALUE MASS 1.9 NG/ML (<3.6); CPK CREATINE PHOSPHOKINASE 170 U/L (26-192); CREATININE FOR GFR 0.76 MG/DL (0.55-1.30); GLOMERULAR FILTRATION RATE > 60.0 (>51); GLUCOSE, FASTING 92 MG/DL (70-100); LIPASE 91 U/L (73-393); MB/CK RELATIVE INDEX 1.12 (< OR =4); POTASSIUM SERUM 3.9 MEQ/L (3.5-5.1); SODIUM LEVEL 142 MEQ/L (136-145); TOTAL PROTEIN 7.2 GM/DL (6.4-8.2); TROPONIN I < 0.02 NG/ML (< 0.10)
[2020-11-11] MEDS: GASTROGRAFIN SOLUTION 30ML PO SCH ×2 (09:40→09:53)
[2020-11-11] MEDS ORDERED: ISOVUE-370 76% 100ML VIAL As Ordered ONE (10:34)
--- NOTE | 2020-11-11 11:21 | REP ---
INDICATION: epigastric abd pain. COMPARISON: 06/06/2019 TECHNIQUE: Axial contrast-enhanced images from the lung bases to the pubic symphysis using oral and 100 cc Isovue 370 intravenous contrast material. Coronal and sagittal reformations obtained. This CT examination was performed using the following dose reduction techniques: Automated exposure control, adjustment of mA and/or kv according to the patient's size, and the use of iterative reconstruction technique. FINDINGS: Liver, spleen, pancreas, gallbladder, bilateral adrenal glands and kidneys are normal/stable. 1.2 cm right renal cyst again noted and unchanged. Evidence for prior gastric bypass surgery noted. The excluded portion of the stomach through duodenum appears relatively normal. Contrast extends from the residual stomach into the small bowel as suspected. Moderate fecal stasis and constipation is suggested through the colon. Mucosal thickening involving the sigmoid colon raises the possibility of infectious/inflammatory colitis and correlation is recommended. There is no evidence for bowel obstruction or free air to suggest perforation. Pelvis demonstrates normal bladder and evidence for prior hysterectomy. No ascites. No free air. No intraperitoneal or retroperitoneal adenopathy. Abdominal aorta is relatively normal and without aneurysm or dissection. Musculoskeletal structures are intact and without acute osseous abnormality. Lung bases demonstrate chronic appearing changes. IMPRESSION: 1. Cannot exclude infectious/inflammatory colitis involving the sigmoid colon and correlation is recommended. Moderate fecal stasis and constipation. 2. Normal postsurgical changes including gastric bypass surgery and prior hysterectomy. 3. No ascites, focal inflammatory stranding, or adenopathy. <Electronically signed by Lyndon Bass > 11/11/20 [id number]
--- NOTE | 2020-11-11 11:25 | ECGEPIP ---
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
[2020-11-11 12:30] VITALS: BP 117/67
[2020-11-11] MEDS ORDERED: AUGMENTIN 875 MG TAB PO ONE (12:30)
[2020-11-11] MEDS ORDERED: AUGM875T28 PO (12:31)
[2020-11-11] MEDS ORDERED: ZOFR4TAB16 PO (12:34)
== END 2020-11-11 12:50 | disposition home or self-care (01) ==
LOC: M ED 07:59
DX: K52.9 Noninfective gastroenteritis and colitis, unspecified (principal); K59.00 Constipation, unspecified; G47.33 Obstructive sleep apnea (adult) (pediatric); F32.9 Major depressive disorder, single episode, unspecified; J45.909 Unspecified asthma, uncomplicated; K21.9 Gastro-esophageal reflux disease without esophagitis; J30.2 Other seasonal allergic rhinitis; J44.9 Chronic obstructive pulmonary disease, unspecified; M54.9 Dorsalgia, unspecified; Z98.84 Bariatric surgery status; F17.200 Nicotine dependence, unspecified, uncomplicated; Z79.899 Other long term (current) drug therapy; Z91.89 Other specified personal risk factors, not elsewhere classified; Z88.8 Allergy status to other drugs, medicaments and biological substances; Z91.040 Latex allergy status
CPT/HCPCS: 36415; 74177; 80048; 80076; 82550; 82553; 83690; 84484; 85025; 93005; 93041; 99285; C9113; J2405; Q9963; Q9967

== ENCOUNTER 2021-01-29 06:17 | Emergency (ER) | payer BC, MEDICAID ==
[~2021-01-29] VITALS: Ht 170.2 cm; Wt 66.0 kg
[~2021-01-29 06:17] MED LIST changes: +ZOFR4TAB16 PO
[2021-01-29] MEDS ORDERED: NS 1,000 ML IV ONE (08:00)
[2021-01-29] MEDS ORDERED: ONDANSETRON 4MG/2ML VIAL IV ONE (08:00)
[2021-01-29] MEDS ORDERED: ACETAMINOPHEN 325 MG TAB PO ONE (08:05)
[2021-01-29 08:17] LABS: RSV AMPLIFICATION NEGATIVE (NEGATIVE)
[2021-01-29] MEDS ORDERED: ISOVUE-370 76% 100ML VIAL As Ordered ONE (08:30)
[2021-01-29 08:36] LABS: BASO # 0.1 10^3/uL (0.0-0.2); BASO % 0.8 % (0.0-1.0); EOS # 0.1 10^3/uL (0.0-0.5); EOS % 1.7 % (0.0-3.0); HEMATOCRIT 42.6 % (36.0-47.0); HEMOGLOBIN 14.1 g/dl (12.0-15.5); LYMPH # 1.9 10^3/uL (1.5-5.0); LYMPH % 24.5 % (24.0-44.0); MEAN CORPUSCULAR HEMOGLOBIN 32.2 pg (27.0-33.0); MEAN CORPUSCULAR HGB CONC 33.1 g/dl (32.0-36.5); MEAN CORPUSCULAR VOLUME 97.3 fl (80.0-96.0); MONO # 0.7 10^3/uL (0.0-0.8); MONO % 9.3 % (2.0-8.0); NEUTROPHILS # 4.8 10^3/uL (1.5-8.5); NEUTROPHILS % 63.2 % (36.0-66.0); PLATELET COUNT, AUTOMATED 246 10^3/uL (150-450); RED BLOOD COUNT 4.38 10^6/uL (4.00-5.40); WHITE BLOOD COUNT 7.5 10^3/uL (4.0-10.0)
[2021-01-29 08:59] LABS: ALBUMIN 3.2 GM/DL (3.2-5.2); ALT/SGPT 29 U/L (12-78); BILIRUBIN,DIRECT 0.1 MG/DL (0.0-0.2); BILIRUBIN,TOTAL 0.3 MG/DL (0.2-1.0); C REACTIVE PROTEIN QUANTITATIV < 0.30 MG/DL (0.00-0.30); LIPASE 78 U/L (73-393); TOTAL PROTEIN 6.8 GM/DL (6.4-8.2)
--- NOTE | 2021-01-29 09:09 | REP ---
INDICATION: Left sided abdominal pain COMPARISON: 11/11/2020. TECHNIQUE: CT Scan of the abdomen and pelvis was performed with intravenous administration of 100 cc of Isovue 370, without oral contrast. Sagittal and coronal reconstruction images are performed. FINDINGS: Lung bases: Mild fibro atelectatic change. Liver: Normal Gallbladder: Unremarkable. Common bile duct is dilated up to 13 mm[address] Comparing to prior CT exams dating back to 03/15/2018 this finding has been present on some of the prior exams, and is of uncertain significance. There is also mild intrahepatic biliary dilatation. Spleen: Normal. Adrenals: Normal. Pancreas: Normal. Kidneys: Probable small cyst in the upper pole the right kidney is unchanged. There is no hydronephrosis. Small and large bowel: There is no free air or obstruction. There has been prior gastric surgery. Free fluid: None. Abdominal aorta: No aneurysm or dissection. Adenopathy: None. Appendix: Not inflamed. Osseous structures: Unremarkable. Pelvis: No mass. Prior hysterectomy. IMPRESSION: Dilated common bile duct of uncertain etiology, maximum diameter 13 mm. This has been present on some of the prior exams dating back to 2018. There is also mild intrahepatic biliary dilatation. No evidence of free air, free fluid or bowel obstruction. No evidence of bowel inflammation. <Electronically signed by Travis Shannon > 01/29/21 [id number]
[2021-01-29 11:50] VITALS: BP 105/58
--- NOTE | 2021-01-30 08:59 | ED PDOC ---
Post-Departure Follow-Up radiology rpeor tfaxed to Veronica Kaur MD Jan 30, 2021 08:59
== END 2021-01-29 12:05 | disposition home or self-care (01) ==
LOC: M ED 06:17
DX: R10.12 Left upper quadrant pain (principal); R10.32 Left lower quadrant pain; R11.2 Nausea with vomiting, unspecified; R19.7 Diarrhea, unspecified; Z79.899 Other long term (current) drug therapy; J30.2 Other seasonal allergic rhinitis; K57.92 Diverticulitis of intestine, part unspecified, without perforation or abscess without bleeding; K27.9 Peptic ulcer, site unspecified, unspecified as acute or chronic, without hemorrhage or perforation; F17.200 Nicotine dependence, unspecified, uncomplicated; Z98.84 Bariatric surgery status; Z91.89 Other specified personal risk factors, not elsewhere classified; Z91.040 Latex allergy status; Z88.8 Allergy status to other drugs, medicaments and biological substances
CPT/HCPCS: 74177; 80047; 80076; 83690; 85025; 86140; 87631; 96361; 96374; 99284; J2405; Q9967

== ENCOUNTER 2021-01-31 10:10 | Emergency (ER) | payer BC ==
[~2021-01-31] VITALS: Ht 170.2 cm; Wt 65.5 kg
[2021-01-31] MEDS ORDERED: KETOROLAC 30 MG/ML 1ML VIAL IV ONE (12:10)
--- NOTE | 2021-01-31 12:48 | REP ---
INDICATION: Syncope. COMPARISON: MRI brain with contrast, 03/01/2010. TECHNIQUE: Contiguous 5 mm thick axial projection images were obtained of the head. 2D coronal reconstructions were performed. FINDINGS: There is no evidence of acute intracranial hemorrhage or infarction. There are no abnormal intracranial masses or mass effects. There is calcific vascular disease of the intracranial portion of both internal carotid arteries. The skull base and calvarium are normal. The visualized extracranial soft tissues are normal. IMPRESSION: 1. No evidence of acute intracranial pathology. 2. There is calcific vascular disease of the intracranial portion of both internal carotid arteries. <Electronically signed by Tray Baird > 01/31/21 [id number]
[2021-01-31 12:50] LABS: BASO # 0.1 10^3/uL (0.0-0.2); BASO % 0.6 % (0.0-1.0); EOS # 0.2 10^3/uL (0.0-0.5); EOS % 1.7 % (0.0-3.0); HEMATOCRIT 40.6 % (36.0-47.0); HEMOGLOBIN 13.5 g/dl (12.0-15.5); LYMPH # 2.4 10^3/uL (1.5-5.0); LYMPH % 27.4 % (24.0-44.0); MEAN CORPUSCULAR HEMOGLOBIN 32.1 pg (27.0-33.0); MEAN CORPUSCULAR HGB CONC 33.3 g/dl (32.0-36.5); MEAN CORPUSCULAR VOLUME 96.7 fl (80.0-96.0); MONO # 0.6 10^3/uL (0.0-0.8); MONO % 7.4 % (2.0-8.0); NEUTROPHILS # 5.4 10^3/uL (1.5-8.5); NEUTROPHILS % 62.7 % (36.0-66.0); PLATELET COUNT, AUTOMATED 234 10^3/uL (150-450); WHITE BLOOD COUNT 8.6 10^3/uL (4.0-10.0)
[2021-01-31 13:20] LABS: MONO SCRN NEGATIVE (NEGATIVE)
[2021-01-31 13:29] LABS: BLOOD UREA NITROGEN 14 MG/DL (7-18); CALCIUM LEVEL 8.4 MG/DL (8.5-10.1); CARBON DIOXIDE LEVEL 28 MEQ/L (21-32); CHLORIDE LEVEL 110 MEQ/L (98-107); CREATININE FOR GFR 0.67 MG/DL (0.55-1.30); GLOMERULAR FILTRATION RATE > 60.0 (>51); GLUCOSE, FASTING 83 MG/DL (70-100); MAGNESIUM LEVEL 1.9 MG/DL (1.8-2.4); POTASSIUM SERUM 4.2 MEQ/L (3.5-5.1); SODIUM LEVEL 142 MEQ/L (136-145)
--- NOTE | 2021-01-31 13:41 | REP ---
INDICATION: cough. COMPARISON: Portable chest, 06/11/2019 TECHNIQUE: PA and lateral images of the chest were obtained. FINDINGS: There is stable scarring in the right mid lung and right costophrenic angle. There is no evidence of acute pulmonary pathology. There are no pleural effusions. The heart borders mediastinum and pulmonary vascular pattern normal. IMPRESSION: No evidence of acute cardiopulmonary pathology. No significant change. <Electronically signed by Tray Baird > 01/31/21 [id number]
[2021-01-31 15:17] VITALS: BP 147/70
== END 2021-01-31 15:19 | disposition home or self-care (01) ==
LOC: M ED 10:10
DX: R51.9 Headache, unspecified (principal); J44.9 Chronic obstructive pulmonary disease, unspecified; E03.9 Hypothyroidism, unspecified; F17.200 Nicotine dependence, unspecified, uncomplicated; F32.9 Major depressive disorder, single episode, unspecified; F41.9 Anxiety disorder, unspecified; M54.30 Sciatica, unspecified side; Z88.8 Allergy status to other drugs, medicaments and biological substances; Z91.040 Latex allergy status; Z91.048 Other nonmedicinal substance allergy status
CPT/HCPCS: 70450; 71046; 80048; 83735; 84439; 84443; 85025; 86308; 87880; 96374; 99284; J1885

== ENCOUNTER → 2021-02-26 | Outpatient (CLI) | payer BC ==
[2021-02-26 12:00] LABS: HEMATOCRIT 40.1 % (36.0-47.0); HEMOGLOBIN 13.2 g/dl (12.0-15.5); MEAN CORPUSCULAR HEMOGLOBIN 32.3 pg (27.0-33.0); MEAN CORPUSCULAR HGB CONC 32.9 g/dl (32.0-36.5); PLATELET COUNT, AUTOMATED 269 10^3/uL (150-450); RED BLOOD COUNT 4.09 10^6/uL (4.00-5.40); WHITE BLOOD COUNT 6.9 10^3/uL (4.0-10.0)
[2021-02-26 12:41] LABS: ALBUMIN 3.4 GM/DL (3.2-5.2); ALT/SGPT 33 U/L (12-78); BILIRUBIN,TOTAL 0.2 MG/DL (0.2-1.0); BLOOD UREA NITROGEN 15 MG/DL (7-18); CALCIUM LEVEL 8.8 MG/DL (8.5-10.1); CARBON DIOXIDE LEVEL 30 MEQ/L (21-32); CHLORIDE LEVEL 108 MEQ/L (98-107); CHOLESTEROL LEVEL 195 MG/DL (<200); FERRITIN 29 NG/ML (8-252); GLOMERULAR FILTRATION RATE > 60.0 (>51); GLUCOSE, FASTING 91 MG/DL (70-100); HDL CHOLESTEROL 78 MG/DL (>40); IRON (FE) 53 UG/DL (50-170); LDL CHOLESTEROL 106 MG/DL (<100); NON-HDL-C 117 MG/DL; POTASSIUM SERUM 4.5 MEQ/L (3.5-5.1); SODIUM LEVEL 141 MEQ/L (136-145); TOTAL PROTEIN 6.9 GM/DL (6.4-8.2); TRIGLYCERIDES LEVEL 54 MG/DL (<150)
[2021-02-26 12:42] LABS: TOTAL 25(OH) VITAMIN D 27.6 NG/ML (30.0-100.0)
== END ==
LOC: M WUC 09:34
PROVIDERS: ATTEND Family Medicine
DX: Z13.1 Encounter for screening for diabetes mellitus (principal); E78.00 Pure hypercholesterolemia, unspecified; I10 Essential (primary) hypertension; E55.9 Vitamin D deficiency, unspecified; E03.9 Hypothyroidism, unspecified; Z98.84 Bariatric surgery status

== ENCOUNTER → 2021-04-07 | Outpatient (CLI) | payer BC ==
[~2021-04-07] MED LIST changes: -CYMB60CA3 PO; +CYMB60CA4 PO
--- NOTE | 2021-04-07 09:34 | REP ---
INDICATION: Assess stenosis TECHNIQUE: Carotid ultrasonography was performed bilaterally FINDINGS: Right: CCA systolic: 97.5 centimeters/second CCA diastolic: 35.4 centimeters/second ICA systolic: 110.0 centimeters/second ICA diastolic: 46.0 centimeters/second ICA CCA ratio: 1.13 Left: CCA systolic: 112.0 centimeters/second CCA diastolic: 29.8 centimeters/second ICA systolic: 98.2 centimeters/second ICA diastolic: 38.5 centimeters/second ICA CCA ratio: 0.88 Vertebral artery: Right: Antegrade flow left: Antegrade flow There is a small amount of plaque seen bilaterally a small portion of which casts and acoustic shadow IMPRESSION: According to the SRU criteria there is less than 50% stenosis of the internal carotid artery bilaterally. This is secondary to a slight degree of calcified and noncalcified atheromatous plaque formation. <Electronically signed by Evens Black > 04/07/21 [id number]
== END ==
LOC: M RAD 08:14
PROVIDERS: ATTEND Family Medicine
DX: I65.23 Occlusion and stenosis of bilateral carotid arteries (principal)

== ENCOUNTER 2021-04-14 08:45 | Emergency (ER) | payer BC ==
[~2021-04-14] VITALS: Ht 170.2 cm; Wt 67.6 kg
--- OUTSIDE RECORDS SUMMARY | 2021-04-14 08:57 | CCD | Continuity of Care Document ---
Author Author Christi COPPOLA [place] Organization Unknown Address [address] [place] [address] [place] [address] Phone [phone] Problems Description No Information Available Social History Type Date Description Comments Sex Unknown ETOH Use Never used alcohol Tobacco Use Start: Unknown The patient has never vaped Tobacco Use Start: Unknown End: Unknown Patient is a former smoker 2013 quit Allergies and adverse reactions Active Allergies Criticality Reaction | Severity Comments Date Trazodone Unable to assess criticality 04/10/2021 Chlorthalidone Unable to assess criticality 04/10/2021 Inactive Allergies NKDA Unable to assess criticality 04/10/2021 Medications Active Medications SIG Qnty Indications Ordering Provide r Date Duloxetine HCL Unknown Mirtazapine Unknown Buspirone HCL Unknown Pantoprazole Sodium Unknown Singulair Unknown Ventolin HFA Unknown Symbicort Unknown Citracal +D3 Unknown Flintstones Complete Unknown B-12 Unknown Magnesium Unknown Promethazine HCL Unknown 00 Protopic Unknown Betamethasone Dipropionate Unknown Immunizations Description No Information Available Vital Signs Date Vital Result Comment 04/10/2021 8:24am BP Systolic 118 mmHg BP Diastolic 82 mmHg Heart Rate 75 /min Respiratory Rate 16 /min O2 % BldC Oximetry 94 % Body Temperature 99.3 F Weight 154.00 lb Height 67 inches 5'7" BMI (Body Mass Index) 24.1 kg/m2 Pain Level 5 Results Description No Information Available Procedures Date Code Description Status 04/10/2021 15943 Office/Outpatient New Low MDM 30 -44 Minutes Completed Medical Devices Description No Information Available Encounters Type Date Location Provider Dx Diagnosis Office Visit 04/10/2021 8:10a Main Office CHANEL Phipps JR J 06.9 Acute upper respiratory infection, unspecified U07.1 Covid-19 Assessments Date Code Description Provider 04/10/2021 J06.9 Acute upper respiratory infectio n, unspecified CHANEL Phipps JR 04/10/2021 U07.1 Covid-19 CHANEL Lipscomb JR Plan of Treatment No Information Available Functional Status Description No Information Available Mental Status Description No Information Available Referrals Description No Information Available
--- OUTSIDE RECORDS SUMMARY | 2021-04-14 08:57 | CCD ---
Author Author [facility] Organization [facility] Address Unknown Phone Unavailable Care Team Providers Care Parts Puller Name Role Phone Keily COPPOLA JR, PA-C Unavailable Unavailable Keily COPPOLA JR, PA-C Unavailable Unavailable Keily COPPOLA JR, PA-C Unavailable Unavailable Keily COPPOLA JR, PA-C Unavailable Unavailable Keily COPPOLA JR, PA-C Unavailable Unavailable Keily COPPOLA JR, PA-C Unavailable Unavailable Keily COPPOLA JR, PA-C Unavailable Unavailable Keily COPPOLA JR, PA-C Unavailable Unavailable Keily COPPOLA JR, PA-C Unavailable Unavailable Keily COPPOLA JR, PA-C Unavailable Unavailable PICKERAL JR, J ANNITA PA-C Unavailable Unavailable PICKERAL JR, Keily ARIZA PA-C Unavailable Unavailable PICKERAL JR, Keily ARIZA PA-C Unavailable Unavailable PICKERAL JR, Keily ARIZA PA-C Unavailable Unavailable PICKERAL JR, Keily ARIZA PA-C Unavailable Unavailable PICKERAL JR, Keily ARIZA PA-C Unavailable Unavailable PICKERAL JR, Keily ARIZA PA-C Unavailable Unavailable PICKERAL JR, Keily ARIZA PA-C Unavailable Unavailable PICKERAL JR, Keily ARIZA PA-C Unavailable Unavailable PICKERAL JR, Keily ARIZA PA-C Unavailable Unavailable PICKERAL JR, Keily ARIZA PA-C Unavailable Unavailable PICKERAL JR, Keily ARIZA PA-C Unavailable Unavailable PICKERAL JR, Keily ARIZA PA-C Unavailable Unavailable PICKERAL JR, Keily ARIZA PA-C Unavailable Unavailable PICKERAL JR, Keily ARIZA PA-C Unavailable Unavailable PICKERAL JR, Keily ARIZA PA-C Unavailable Unavailable PICKERAL JR, Keily ARIZA PA-C Unavailable Unavailable Re-disclosure Warning The records that you are about to access may contain information from federally-assisted alcohol or drug abuse programs. If such information is present, then the following federally mandated warning applies: This information has been disclosed to you from records protected by federal confidentiality rules (42 CFR part 2). The federal rules prohibit you from making any further disclosure of this information unless further disclosure is expressly permitted by the written consent of the person to whom it pertains or as otherwise permitted by 42 CFR part 2. A general authorization for the release of medical or other information is NOT sufficient for this purpose. The Federal rules restrict any use of the information to criminally investigate or prosecute any alcohol or drug abuse patient.The records that you are about to access may contain highly sensitive health information, the redisclosure of which is protected by Article 27-F of the [facility] Public Health law. If you continue you may have access to information: Regarding HIV / AIDS; Provided by facilities licensed or operated by the [facility] Office of Mental Health; or Provided by the [facility] Office for People With Developmental Disabilities. If such information is present, then the following [facility] mandated warning applies: This information has been disclosed to you from confidential records which are protected by state law. State law prohibits you from making any further disclosure of this information without the specific written consent of the person to whom it pertains, or as otherwise permitted by law. Any unauthorized further disclosure in violation of state law may result in a fine or fci sentence or both. A general authorization for the release of medical or other information is NOT sufficient authorization for further disc losure. Allergies and Adverse Reactions Type Description Substance Reaction Status Data Source(s ) Drug Allergy Drug Allergy NKDA MEDENT ([facility]) Family History Family Member Name Family Member Gender Family Member Status Date o f Status Description Data Source(s) Unknown Male Problem MEDENT ([facility]) Unknown Female Problem [facility] ([facility]) Unknown Female Problem [facility] ([facility]) Unknown Female Problem MED[facility] ([facility]) Encounters Encounter Providers Location Date Indications Data Source(s ) Outpatient Attender: ANNITA marsh 04/10/2021 07:10:00 AM EST MEDENT ([facility] Outpatient [address] [facility] [id number] 03/04/2021 12:00:00 AM EDT eCW1 ([facility]) Unknown [address] [facility] [address] 12/29/2020 12:00:00 AM EDT eCW1 ([facility]) Unknown [address] [facility] [address] 11/23/2020 12:00:00 AM EDT eCW1 ([facility]) Outpatient [address] [facility] [id number] 2020 12:00:00 AM EDT eCW1 ([facility]) TeleMedicine Phone E/M by Phys 5-10 Min [address] [place] [address] 06/19/2020 12:00:00 AM EST eCW1 ([facility]) Outpatient [address] [facility] [id number] 06/11/2020 12:00:00 AM EST eCW1 ([facility]) Unknown [address] [facility] [address] 05/11/2020 12:00:00 AM EST eCW1 ([facility]) [place] [address] [facility] [place] [address] 04/17/2020 12:00:00 AM EST eCW1 ([facility]) [place] [address] [facility] [place] [address] 04/17/2020 12:00:00 AM EST eCW1 ([facility]) [place] [address] [facility] [place] [address] 04/10/2020 12:00:00 AM EST eCW1 ([facility]) [place] [address] [facility] [place] [address] 04/07/2020 12:00:00 AM EST eCW1 ([facility]) [place] [address] [facility] [place] [address] 02/18/2020 12:00:00 AM EDT eCW1 ([facility]) Immunizations Vaccine Date Status Description Data Source(s) influenza, recombinant, quadrIvalent,injectable, prese rvative free 03/04/2021 02:25:00 PM EDT completed eCW1 ([facility]) COVID-19 VACCINE Moderna 09/07/2020 12:00:00 AM EDT completed [facility]IS Vaccine Series Complete: YESThis Data wa s Submitted to [facility] Via [employer]. COVID-19 dose #1 given elsewhere Unspecified 08/07/2020 03:1 0:00 PM EDT completed eCW1 ([facility]) COVID-19 dose #1 given elsewhere Unspecified 08/07/2020 03:1 0:00 PM EDT completed eCW1 ([facility]) COVID-19 dose #1 given elsewhere Unspecified 08/07/2020 03:1 0:00 PM EDT completed eCW1 ([facility]) COVID-19 dose #1 given elsewhere Unspecified 08/07/2020 03:1 0:00 PM EDT completed eCW1 ([facility]) COVID-19 VACCINE Moderna 08/07/2020 12:00:00 AM EDT completed [facility]IS Vaccine Series Complete: NOThis Data was Submitted to [facility] Via [employer]. Medications Medication Brand Name Start Date Product Form Dose Route Admi nistrative Instructions Pharmacy Instructions Status Indications Reaction Description Data Source(s) Phentermine Hydrochloride 15 MG Oral Capsule Phentermi ne HCl 15 MG Phentermine HCl 15 MG 03/28/2021 12:00:00 AM EST 1.0 {capsule} activ e eCW1 ([facility]) Phentermine Hydrochloride 30 MG Oral Capsule Phentermi ne HCl 30 MG Phentermine HCl 30 MG 03/28/2021 12:00:00 AM EST 1.0 {capsule} activ e eCW1 ([facility]) Nicotine 2 MG Chewing Gum Nicotine Polacrilex 2 MG Nicotine Polacrilex 2 MG 03/05/2021 12:00:00 AM EDT active eCW1 ([facility]) duloxetine 30 MG Delayed Release Oral Capsule [Cymbalt a] Cymbalta 30 MG Cymbalta 30 MG 2020 12:00:00 AM EDT 1.0 {capsule} acti ve Cymbalta 30 MG eCW1 ([facility]) Nicotine 4 MG/ACTUAT Inhalant Solution [Nicotrol] Nicotrol 1 0 MG Nicotrol 10 MG 2020 12:00:00 AM EDT active Nicotrol 10 MG eCW1 ([facility]) Nicotine 4 MG/ACTUAT Inhalant Solution [Nicotrol] Nicotrol 1 0 MG Nicotrol 10 MG 2020 12:00:00 AM EDT active Nicotrol 10 MG eCW1 ([facility]) Nicotine 4 MG/ACTUAT Inhalant Solution [Nicotrol] Nicotrol 1 0 MG Nicotrol 10 MG 2020 12:00:00 AM EDT active eCW1 ([facility]) duloxetine 30 MG Delayed Release Oral Capsule [Cymbalt a] Cymbalta 30 MG Cymbalta 30 MG 2020 12:00:00 AM EDT 1.0 {capsule} acti ve Cymbalta 30 MG eCW1 ([facility]) Nicotine 4 MG/ACTUAT Inhalant Solution [Nicotrol] Nicotrol 1 0 MG Nicotrol 10 MG 2020 12:00:00 AM EDT active Nicotrol 10 MG eCW1 ([facility]) duloxetine 30 MG Delayed Release Oral Capsule [Cymbalt a] Cymbalta 30 MG Cymbalta 30 MG 2020 12:00:00 AM EDT 1.0 {capsule} acti ve Cymbalta 30 MG eCW1 ([facility]) duloxetine 30 MG Delayed Release Oral Capsule [Cymbalt a] Cymbalta 30 MG Cymbalta 30 MG 2020 12:00:00 AM EDT 1.0 {capsule} active eCW1 ([facility]) Insurance Providers Payer name Policy type / Coverage type Policy ID Covered constitution party ID Covered constitution party's relationship to albert Policy Albert Plan Information WORKERS COMPENSATION GENERIC W [id number] Self [id number] MEDICARE A [id number] Self [id number] A MEDICARE A [id number] Self [id number] A Medicare Medicare Primary [id number] Self MEDICARE A [id number] Self [id number] A MEDICAID M [id number] Self [id number] MEDICARE A [id number] Self [id number] A UHC I [id number] Self [id number] UHC I [id number] Self [id number] UHC I [id number] Self [id number] UHC I [id number] Self [id number] UHC I [id number] Self [id number] C I [id number] Self [id number] [facility] COMMUNITY PLAN [facility] [id number] SP [id number] [facility] Health Maintenance Organization (HMO) [id number] Self [id number] [facility] COMMUNITY PLAN [facility] [id number] SP [id number] ANS-Medicare Part B [id number] ANSI-Commercial [id number] ANSI-Medicare Part B [id number] ANSI-Commercial [id number] ANSI-Medicaid [id number] ANSI-Medicaid [id number] ANSI-Medicaid [id number] ANSI-Medicare Part B [id number] ANSI-Medicaid [id number] ANSI-Commercial [id number] ANSI-Medicaid [id number] ANSI-Medicare Part B [id number] ANSI-Commercial [id number] [facility]-Medicaid [id number] [facility]-Medicaid [id number] ANSI-Commercial [id number] ANSI-Medicare Part B [id number] [facility]-Medicaid [id number] [facility]-Medicaid [id number] [facility]-Medicaid [id number] ANSI-Medicare Part B [id number] ANSI-Commercial [id number] ANSI-Commercial [id number] ANSI-Medicaid [id number] ANSI-Medicaid [id number] ANSI-Medicare Part B [id number] ANSI-Medicaid [id number] ANSI-Commercial [id number] ANSI-Medicare Part B [id number] ANSI-Medicaid [id number] ANSI-Medicare Part B [id number] ANSI-Commercial [id number] ANSI-Medicaid [id number] ANSI-Medicaid [id number] MEDICAID [id number] SP [id number] MEDICARE [id number] SP [id number] A [facility] O [id number] S [id number] MEDICARE C [id number] S [id number] A MEDICAID M [id number] S [id number] [facility] O UNAVAILABLE [id number] C UNAVAILABLE [place] - Sathya Unrelated Medigap Part B [id number] Self Medicaid Medigap Part B [id number] Self [place] PK-Sathya Unrelated Medigap Part B [id number] Self BC/BS Ruth Hmo Medicaid Medigap Part B [id number] Self [employer]/Sedgick-Sathya Unrelated Medigap Part B [id number] Self [place] NOT IN EFFECT FOR TODAY SP NOT IN EFFECT FOR TODAY OTHER2 NOT IN EFFECT FOR TODAY SP NOT IN EFFECT FOR TODAY SEARS HOLDING C O SEDGICK CLAI NOT IN EFFECT TODAY SP NOT IN EFFECT TODAY MEDICARE P UNAVAILABLE [id number] S UNAVAILA BLE BLUE CROSS RUTH PLAN [id number] SP [id number] O BLUE [id number] SP [id number] BLUE CROSS BLUE SHIELD-O/P [id number] NOT APPLICABLE NOT A PPLICABLE BCBS [place] 302/307 [id number] SP [id number] [place] P[place] 302/307 [id number] SP [id number] [place] [id number] SP [id number] H BCBS [place] 306/806 [id number] SP [id number] [facility] COMMUNITY PLAN MCDO [id number] SP [id number] [facility] [id number] SP [id number] UNHC COMMUNITY PLAN MCDHMO [id number] SP [id number] [place]BS [place] PPO 302/307 [id number] SP [id number] [facility] [id number] S [id number] [facility] [id number] SP [id number] ANS-Medicaid [id number] ANS-Medicare Part B [id number] ANSI-Commercial [id number] ANS-Medicaid [id number] ANS-Medicaid [id number] [facility]-Medicaid [id number] Problems, Conditions, and Diagnoses Code Display Name Description Problem Type Effective Dates Data Source(s) I65.23 [id number] Problem 03/28/2021 12:00:00 AM ES T eCW1 ([facility]) I73.00 [id number] Raynaud's phenomenon without gangrene Pro blem 06/11/2020 12:00:00 AM EST eCW1 ([facility]) Surgeries/Procedures Procedure Description Date Indications Data Source(s) OFFICE OUTPATIENT NEW 30 MINUTES 04/10/2021 12:00:00 A M EST MEDENT ([facility]) 03/04/2021 12:00:00 AM EDT e CW1 ([facility]) Results ID Date Data Source [id number] 04/10/2021 12:00:00 AM EST [facility] Name Value Range Interpretation Code Description Data Akosua rce(s) Supporting Document(s) SARS-CoV2 Rapid Antigen Positive [facility] This lab was reported by [facility]. ID Date Data Source [id number] 01/29/2021 07:25:00 AM EDT [facility] Name Value Range Interpretation Code Description Data Akosua rce(s) Supporting Document(s) SARS coronavirus 2 RNA [Presence] in Res piratory specimen by LAURA with probe detection NEGATIVE [facility] This lab was ordered by [facility] a nd reported by [facility]. ID Date Data Source [id number] 09/14/2020 12:00:00 AM EDT [facility] Name Value Range Interpretation Code Description Data Akosua rce(s) Supporting Document(s) SARS-CoV2 Rapid Antigen Negative [facility] This lab was ordered by [facility] and reported by [facility]. ID Date Data Source [id number] [id number] 06/12/2020 12:00:00 AM EST eCW1 ([facility]) Name Value Range Interpretation Code Description Data Akosua rce(s) Supporting Document(s) 1182 eCW1 ([facility]) > 24.0 eCW1 ([facility]) ID Date Data Source TOTAL IRON BINDING CAPACIT 06/12/2020 12:00:00 AM EST eCW1 ( [facility]) Name Value Range Interpretation Code Description Data Akosua rce(s) Supporting Document(s) 52 50-170 eCW1 ([facility]) 263 250-450 eCW1 ([facility]) 19.8 13.2-45.0 eCW1 ([facility]) ID Date Data Source VITAMIN [id number] 06/12/2020 12:00:00 AM EST eCW1 ([facility]) Name Value Range Interpretation Code Description Data Akosua rce(s) Supporting Document(s) 31.8 30.0-100.0 eCW1 ([facility]) ID Date Data Source Reticulocyte Count Sysmex 06/12/2020 12:00:00 AM EST eCW1 ([facility]) Name Value Range Interpretation Code Description Data Akosua rce(s) Supporting Document(s) 1.5 0.5-1.5 eCW1 ([facility]) ID Date Data Source FERRITIN 06/12/2020 12:00:00 AM EST eCW1 ([facility]) Name Value Range Interpretation Code Description Data Akosua rce(s) Supporting Document(s) 34 8-252 eCW1 ([facility]) ID Date Data Source CBC - Complete Blood Count 06/12/2020 12:00:00 AM EST eCW1 ( [facility]) Name Value Range Interpretation Code Description Data Akosua rce(s) Supporting Document(s) 8.1 4.0-10.0 eCW1 ([facility]) 4.01 4.00-5.40 eCW1 ([facility]) 13.0 12.0-15.5 eCW1 ([facility]) 32.4 27.0-33.0 eCW1 ([facility]) 99.0 80.0-96.0 eCW1 ([facility]) 32.7 32.0-36.5 eCW1 ([facility]) 39.7 36.0-47.0 eCW1 ([facility]) 13.3 11.5-14.5 eCW1 ([facility]) 281 150-450 eCW1 ([facility]) Procedure Social History Code Duration Value Status Description Data Source(s ) Smoking 03/01/2021 12:00:00 AM EDT Current Smoker completed Curre nt Smoker eCW1 ([facility]) Smoking 09/28/2020 12:00:00 AM EDT Current Smoker completed Curre nt Smoker eCW1 ([facility]) Smoking 09/28/2020 12:00:00 AM EDT Current Smoker completed Curre nt Smoker eCW1 ([facility]) Smoking 09/28/2020 12:00:00 AM EDT Current Smoker completed Curre nt Smoker eCW1 ([facility]) Smoking 06/19/2020 12:00:00 AM EST Current Smoker completed Curre nt Smoker eCW1 ([facility]) Smoking 06/19/2020 12:00:00 AM EST Current Smoker completed Curre nt Smoker eCW1 ([facility]) Vital Signs ID Date Data Source UNK Name Value Range Interpretation Code Description Data Source(s) Diastolic blood pressure 82 mm[Hg] 82 mm[Hg] MEDENT ([facility]) Systolic blood pressure 118 mm[Hg] 118 mm[Hg] M EDENT ([facility]) Respiratory rate 16 /min 16 /min [facility] Oxygen saturation in Arterial blood by Pulse oximetry 94 % 94 % [facility] Body temperature 99.3 [degF] 99.3 [degF] MEDENT ([facility]) Body weight 154.00 [lb_av] 154.00 [lb_av] MEDEN T ([facility]) Body height 67 [in_i] 67 [in_i] MEDENT ([facility]) 5'7" Body mass index (BMI) [Ratio] 24.1 kg/m2 24.1 k g/m2 [facility] Heart rate 75 /min 75 /min MEDENT ([facility]) Body weight 151.2 [lb_av] 151.2 [lb_av] eCW1 ([facility]) Body height 67 [in_i] 67 [in_i] eCW1 ([facility]) Body mass index (BMI) [Ratio] 23.68 kg/m2 23.68 kg/m2 [facility] ([facility]) Heart rate 82 /min 82 /min eCW1 ([facility]) Respiratory rate 18 /min 18 /min eCW1 ([facility]) Body temperature 98.5 [degF] 98.5 [degF] eCW1 ( [facility]) Systolic blood pressure 124 mm[Hg] 124 mm[Hg] e CW1 ([facility]) Diastolic blood pressure 82 mm[Hg] 82 mm[Hg] eCW1 ([facility]) Body weight 148.0 [lb_av] 148.0 [lb_av] eCW1 ([facility]) Body height 67 [in_i] 67 [in_i] eCW1 ([facility]) Body mass index (BMI) [Ratio] 23.18 kg/m2 23.18 kg/m2 eCW1 ([facility]) Heart rate 92 /min 92 /min eCW1 ([facility]) Respiratory rate 18 /min 18 /min eCW1 ([facility]) Body temperature 98.3 [degF] 98.3 [degF] eCW1 ( [facility]) Systolic blood pressure 122 mm[Hg] 122 mm[Hg] e CW1 ([facility]) Diastolic blood pressure 72 mm[Hg] 72 mm[Hg] eCW1 ([facility]) Body weight 151.6 [lb_av] 151.6 [lb_av] eCW1 ([facility]) Body height 67 [in_i] 67 [in_i] eCW1 ([facility]) Body mass index (BMI) [Ratio] 23.74 kg/m2 23.74 kg/m2 eCW1 ([facility]) Heart rate 86 /min 86 /min eCW1 ([facility]) Respiratory rate 18 /min 18 /min eCW1 ([facility]) Body temperature 97.9 [degF] 97.9 [degF] eCW1 ( [facility]) Systolic blood pressure 118 mm[Hg] 118 mm[Hg] e CW1 ([facility]) Diastolic blood pressure 60 mm[Hg] 60 mm[Hg] eCW1 ([facility]) Patient Treatment Plan of Care Planned Activity Planned Date Details Description Data Source (s) Phentermine Hydrochloride 15 MG Oral Capsule 03/28/2021 12:00:00 AM EST eCW1 ([facility]) Phentermine Hydrochloride 30 MG Oral Capsule 03/28/2021 12:00:00 AM EST eCW1 ([facility]) Nicotine 2 MG Chewing Gum 03/05/2021 12:00:00 AM EDT eCW1 ([facility]) Nicotine 4 MG/ACTUAT Inhalant Solution [Nicotrol] 2020 12: 00:00 AM EDT eCW1 ([facility]) duloxetine 30 MG Delayed Release Oral Capsule [Cymbalt a] 2020 12:00:00 AM EDT eCW1 ([facility]) Nicotine 4 MG/ACTUAT Inhalant Solution [Nicotrol] 2020 12: 00:00 AM EDT eCW1 ([facility]) duloxetine 30 MG Delayed Release Oral Capsule [Cymbalt a] 2020 12:00:00 AM EDT eCW1 ([facility]) Nicotine 4 MG/ACTUAT Inhalant Solution [Nicotrol] 2020 12: 00:00 AM EDT eCW1 ([facility]) duloxetine 30 MG Delayed Release Oral Capsule [Cymbalt a] 2020 12:00:00 AM EDT eCW1 ([facility])
--- OUTSIDE RECORDS SUMMARY | 2021-04-14 08:57 | CCD ---
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
--- OUTSIDE RECORDS SUMMARY | 2021-04-14 08:57 | CCD | Continuity of Care Document ---
Author Author Christi COPPOLA IA Organization Unknown Address [address] [place] [address] [place] [address] Phone [phone] Problems Description No Information Available Social History [...] Available Procedures Date Code Description Status 04/10/2021 [id number] Office/Outpatient New Low MDM 30 -44 Minutes [...]
--- OUTSIDE RECORDS SUMMARY | 2021-04-14 12:08 | CCD ---
Author Author [facility] Organization [facility] Address Unknown Phone Unavailable Care Team Providers Care Director Product Name Role Phone Keily COPPOLA JR, PA-C [...] ARIZA PA-C Unavailable Unavailable PICKERAL JR, Keily ARIAZ PA-C Unavailable Unavailable PICKERAL JR, Keily ARIZA [...] is protected by Article 27-F of the [facility] Public Health law. If you continue you may have access to information: Regarding HIV / AIDS; Provided by facilities licensed or operated by the [facility] Office of Mental Health; or Provided by the [facility] Office for People With Developmental Disabilities. If such information is present, then the following [facility] mandated warning applies: This information has been [...] law may result in a fine or penitentiary sentence or both. A general authorization for the release of medical or other information is NOT sufficient authorization for further disc losure. Allergies and Adverse Reactions Type Description Substance Reaction Status Data Source(s ) Drug Allergy Drug Allergy NKDA MEDENT ([facility]) Family History Family Member Name Family Member Gender Family Member Status Date o f Status Description Data Source(s) Unknown Male Problem MEDENT ([facility]) Unknown Female Problem [facility] ([facility]) Unknown Female Problem MED[facility] ([facility]) Unknown Female Problem MEDENT ([facility]) Encounters Encounter Providers Location Date Indications Data Source(s ) Outpatient Attender: ANNITA marsh 04/10/2021 07:10:00 AM EST MEDENT ([facility] Outpatient [address] [facility] [id number] 03/04/2021 12:00:00 AM EDT eCW1 ([facility]) Unknown [address] [facility] [address] 12/29/2020 12:00:00 AM EDT eCW1 ([facility]) Unknown [address] [facility] [address] 11/23/2020 12:00:00 AM EDT eCW1 ([facility]) Outpatient [address] [facility] [address] 2020 12:00:00 AM EDT eCW1 ([facility]) TeleMedicine Phone E/M by Phys 5-10 Min [address] [place] [address] 06/19/2020 12:00:00 AM EST eCW1 ([facility]) Outpatient [address] [facility] [id number] 06/11/2020 12:00:00 AM EST eCW1 ([facility]) Unknown [address] [facility] [address] 05/11/2020 12:00:00 AM EST eCW1 ([facility]) Unknown [address] [facility] [place] [address] 04/17/2020 12:00:00 AM EST eCW1 ([facility]) Unknown [address] [facility] [address] 04/17/2020 12:00:00 AM EST eCW1 ([facility]) Unknown [address] [facility] [place] [address] 04/10/2020 12:00:00 AM EST eCW1 ([facility]) Unknown [address] [facility] [place] [address] 04/07/2020 12:00:00 AM EST eCW1 ([facility]) Unknown [address] [facility] [address] 02/18/2020 12:00:00 AM EDT eCW1 ([facility]) Immunizations Vaccine Date Status Description Data Source(s) influenza, recombinant, quadrIvalent,injectable, prese rvative free 03/04/2021 02:25:00 PM EDT completed eCW1 ([facility]) COVID-19 VACCINE Moderna 09/07/2020 12:00:00 AM EDT completed [facility] Vaccine Series Complete: YESThis Data wa s Submitted to [facility] Via [facility]SIIS. COVID-19 dose #1 given elsewhere Unspecified 08/07/2020 03:1 0:00 PM EDT completed eCW1 ([facility]) COVID-19 dose #1 given elsewhere Unspecified 08/07/2020 03:1 0:00 PM EDT completed eCW1 ([facility]) COVID-19 dose #1 given elsewhere Unspecified 08/07/2020 03:1 0:00 PM EDT completed eCW1 ([facility]) COVID-19 dose #1 given elsewhere Unspecified 08/07/2020 03:1 0:00 PM EDT completed eCW1 ([facility]) COVID-19 VACCINE Moderna 08/07/2020 12:00:00 AM EDT completed [facility] Vaccine Series Complete: NOThis Data was Submitted to [facility] Via Local Reputation. Medications Medication Brand Name Start Date Product Form Dose Route Admi nistrative Instructions Pharmacy Instructions Status Indications Reaction Description Data Source(s) Phentermine Hydrochloride 15 MG Oral Capsule Phentermi ne HCl 15 MG Phentermine HCl 15 MG 03/28/2021 12:00:00 AM EST 1.0 {capsule} activ e eCW1 ([facility]) Phentermine Hydrochloride 30 MG Oral Capsule Phentermi ne HCl 30 MG Phentermine HCl 30 MG 03/28/2021 12:00:00 AM EST 1.0 {capsule} activ e eCW1 ([facility]) Nicotine 2 MG Chewing Gum Nicotine Polacrilex 2 MG Nicotine Polacrilex 2 MG 03/05/2021 12:00:00 AM EDT active eCW1 ([facility]) duloxetine 30 MG Delayed Release Oral Capsule [Cymbalt a] Cymbalta 30 MG Cymbalta 30 MG 2020 12:00:00 AM EDT 1.0 {capsule} acti ve Cymbalta 30 MG eCW1 ([facility]) Nicotine 4 MG/ACTUAT Inhalant Solution [Nicotrol] Nicotrol 1 0 MG Nicotrol 10 MG 2020 12:00:00 AM EDT active Nicotrol 10 MG eCW1 ([facility]) Nicotine 4 MG/ACTUAT Inhalant Solution [Nicotrol] Nicotrol 1 0 MG Nicotrol 10 MG 2020 12:00:00 AM EDT active Nicotrol 10 MG eCW1 ([facility]) Nicotine 4 MG/ACTUAT Inhalant Solution [Nicotrol] Nicotrol 1 0 MG Nicotrol 10 MG 2020 12:00:00 AM EDT active eCW1 ([facility]) duloxetine 30 MG Delayed Release Oral Capsule [Cymbalt a] Cymbalta 30 MG Cymbalta 30 MG 2020 12:00:00 AM EDT 1.0 {capsule} acti ve Cymbalta 30 MG eCW1 ([facility]) Nicotine 4 MG/ACTUAT Inhalant Solution [Nicotrol] Nicotrol 1 0 MG Nicotrol 10 MG 2020 12:00:00 AM EDT active Nicotrol 10 MG eCW1 ([facility]) duloxetine 30 MG Delayed Release Oral Capsule [Cymbalt a] Cymbalta 30 MG Cymbalta 30 MG 2020 12:00:00 AM EDT 1.0 {capsule} acti ve Cymbalta 30 MG eCW1 ([facility]) duloxetine 30 MG Delayed Release Oral Capsule [Cymbalt a] Cymbalta 30 MG Cymbalta 30 MG 2020 12:00:00 AM EDT 1.0 {capsule} active eCW1 ([facility]) Insurance Providers Payer name Policy type / Coverage type Policy ID Covered republican ID Covered republican's relationship to albert Policy Albert Plan Information WORKERS COMPENSATION GENERIC W [id number] Self [id number] MEDICARE A [id number] Self [id number] A MEDICARE A [id number] Self [id number] A Medicare Medicare Primary [id number] Self MEDICARE A [id number] Self [id number] A MEDICAID M [id number] Self [id number] MEDICARE A [id number] Self [id number] A UHC I [id number] Self [id number] UHC I [id number] Self [id number] UHC I [id number] Self [id number] UHC I [id number] Self [id number] UHC I [id number] Self [id number] C I [id number] Self [id number] [facility] COMMUNITY PLAN [facility] [id number] SP [id number] [facility] Health Maintenance Organization (HMO) [id number] Self [id number] [facility]ICAL ACCESS HOSPITAL COMMUNITY PLAN [facility] [id number] SP [id number] ANS-Medicare Part B [id number] ANSI-Commercial [id number] ANSI-Medicare Part B [id number] ANSI-Commercial [id number] ANSI-Medicaid [id number] ANSI-Medicaid [id number] ANSI-Medicaid [id number] ANSI-Medicare Part B [id number] ANSI-Medicaid [id number] ANSI-Commercial [id number] ANSI-Medicaid [id number] ANSI-Medicare Part B [id number] ANSI-Commercial [id number] [facility]-Medicaid [id number] [facility]-Medicaid [id number] ANSI-Commercial [id number] ANSI-Medicare Part B [id number] [facility]-Medicaid [id number] [facility]-Medicaid [id number] [facility]-Medicaid [id number] ANSI-Medicare Part B [id number] ANSI-Commercial [id number] ANSI-Commercial [id number] ANSI-Medicaid [id number] ANSI-Medicaid [id number] ANSI-Medicare Part B [id number] ANSI-Medicaid [id number] ANSI-Commercial [id number] ANSI-Medicare Part B [id number] ANSI-Medicaid [id number] ANSI-Medicare Part B [id number] ANSI-Commercial [id number] ANSI-Medicaid [id number] ANSI-Medicaid [id number] MEDICAID [id number] SP [id number] MEDICARE [id number] SP [id number] A [facility] O [id number] S [id number] MEDICARE C [id number] S [id number] A MEDICAID M [id number] S [id number] [facility] UNAVAILABLE [id number] C UNAVAILABLE [place]athya Unrelated Medigap Part B [id number] Self Medicaid Medigap Part B [id number] Self [place]-Sathya Unrelated Medigap Part B [id number] Self BC/BS Ruth Hmo Medicaid Medigap Part B [id number] Self [employer]-Sathya Unrelated Medigap Part B [id number] Self [place] DANISH NOT IN EFFECT FOR TODAY SP NOT IN EFFECT FOR TODAY OTHER2 NOT IN EFFECT FOR TODAY SP NOT IN EFFECT FOR TODAY SEARS HOLDING C O SEDGICK CLAI NOT IN EFFECT TODAY SP NOT IN EFFECT TODAY MEDICARE P UNAVAILABLE [id number] S UNAVAILA BLE BLUE CROSS RUTH PLAN [id number] SP [id number] O BLUE [id number] SP [id number] BLUE CROSS BLUE SHIELD-O/P [id number] 18 [id number] NOT APPLICABLE NOT A PPLICABLE BCBS [place] P[place] 302/307 [id number] SP [id number] [place]BS [place] PPO 302/307 [id number] SP [id number] [place] [id number] SP [id number] BCBS OF [place] 306/806 [id number] SP [id number] [facility]IT[facility] COMMUNITY PLAN MCDO [id number] SP [id number] [facility] [id number] SP [id number] UNHC COMMUNITY PLAN MCDHMO [id number] SP [id number] BCBS [place] PPO 302/307 [id number] SP [id number] [facility] [id number] S [id number] [facility] [id number] SP [id number] ANS-Medicaid [id number] ANS-Medicare Part B [id number] ANSI-Commercial [id number] ANS-Medicaid [id number] ANS-Medicaid [id number] [facility]-Medicaid [id number] Problems, Conditions, and Diagnoses Code Display Name Description Problem Type Effective Dates Data Source(s) I65.23 362011450 Problem 03/28/2021 12:00:00 AM ES T eCW1 ([facility]) I73.00 [id number] Raynaud's phenomenon without gangrene Pro blem 06/11/2020 12:00:00 AM EST eCW1 ([facility]) Surgeries/Procedures Procedure Description Date Indications Data Source(s) OFFICE OUTPATIENT NEW 30 MINUTES 04/10/2021 12:00:00 A M EST MEDENT ([facility]) 03/04/2021 12:00:00 AM EDT e CW1 ([facility]) Results ID Date Data Source [id number] 04/10/2021 12:00:00 AM EST [facility] Name Value Range Interpretation Code Description Data Akosua rce(s) Supporting Document(s) SARS-CoV2 Rapid Antigen Positive [facility] This lab was reported by [facility]. ID Date Data Source [id number] 01/29/2021 07:25:00 AM EDT [facility] Name Value Range Interpretation Code Description Data Akosua rce(s) Supporting Document(s) SARS coronavirus 2 RNA [Presence] in Res piratory specimen by LAURA with probe detection NEGATIVE [facility] This lab was ordered by [facility] a nd reported by [facility]. ID Date Data Source [id number] 09/14/2020 12:00:00 AM EDT [facility] Name Value Range Interpretation Code Description Data Akosua rce(s) Supporting Document(s) SARS-CoV2 Rapid Antigen Negative [facility] This lab was ordered by [facility] and reported by [facility]. ID Date Data Source [id number] FOL 06/12/2020 12:00:00 AM EST eCW1 ([facility]) Name Value Range Interpretation Code Description Data Akosua rce(s) Supporting Document(s) 1182 eCW1 ([facility]) > 24.0 eCW1 ([facility]) ID Date Data Source TOTAL IRON BINDING CAPACIT 06/12/2020 12:00:00 AM EST eCW1 ( [facility]) Name Value Range Interpretation Code Description Data Akosua rce(s) Supporting Document(s) 52 50-170 eCW1 ([facility]) 263 250-450 eCW1 ([facility]) 19.8 13.2-45.0 eCW1 ([facility]) ID Date Data Source VITAMIN D [id number] 06/12/2020 12:00:00 AM EST eCW1 ([facility]) Name Value Range Interpretation Code Description Data Akosua rce(s) Supporting Document(s) 31.8 30.0-100.0 eCW1 ([facility]) ID Date Data Source Reticulocyte Count Sysmex 06/12/2020 12:00:00 AM EST eCW1 ([facility]) Name Value Range Interpretation Code Description Data Akosua rce(s) Supporting Document(s) 1.5 0.5-1.5 eCW1 ([facility]) ID Date Data Source FERRITIN 06/12/2020 12:00:00 AM EST eCW1 ([facility]) Name Value Range Interpretation Code Description Data Akosua rce(s) Supporting Document(s) 34 8-252 eCW1 ([facility]) ID Date Data Source CBC - Complete Blood Count 06/12/2020 12:00:00 AM EST eCW1 ( [facility]) Name Value Range Interpretation Code Description Data Akosua rce(s) Supporting Document(s) 8.1 4.0-10.0 eCW1 ([facility]) 4.01 4.00-5.40 eCW1 ([facility]) 13.0 12.0-15.5 eCW1 ([facility]) 32.4 27.0-33.0 eCW1 ([facility]) 99.0 80.0-96.0 eCW1 ([facility]) 32.7 32.0-36.5 eCW1 ([facility]) 39.7 36.0-47.0 eCW1 ([facility]) 13.3 11.5-14.5 eCW1 ([facility]) 281 150-450 eCW1 ([facility]) Procedure Social History Code Duration Value Status Description Data Source(s ) Smoking 03/01/2021 12:00:00 AM EDT Current Smoker completed Curre nt Smoker eCW1 ([facility]) Smoking 09/28/2020 12:00:00 AM EDT Current Smoker completed Curre nt Smoker eCW1 ([facility]) Smoking 09/28/2020 12:00:00 AM EDT Current Smoker completed Curre nt Smoker eCW1 ([facility]) Smoking 09/28/2020 12:00:00 AM EDT Current Smoker completed Curre nt Smoker eCW1 ([facility]) Smoking 06/19/2020 12:00:00 AM EST Current Smoker completed Curre nt Smoker eCW1 ([facility]) Smoking 06/19/2020 12:00:00 AM EST Current Smoker completed Curre nt Smoker eCW1 ([facility]) Vital Signs ID Date Data Source UNK Name Value Range Interpretation Code Description Data Source(s) Systolic blood pressure 118 mm[Hg] 118 mm[Hg] M EDENT ([facility]) Diastolic blood pressure 82 mm[Hg] 82 mm[Hg] MEDENT ([facility]) Respiratory rate 16 /min 16 /min [facility] Oxygen saturation in Arterial blood by Pulse oximetry 94 % 94 % MEDENT ([facility]) Body temperature 99.3 [degF] 99.3 [degF] MEDENT ([facility]) Body weight 154.00 [lb_av] 154.00 [lb_av] MEDEN T ([facility]) Body height 67 [in_i] 67 [in_i] MEDENT ([facility]) 5'7" Heart rate 75 /min 75 /min MEDENT ([facility]) Body mass index (BMI) [Ratio] 24.1 kg/m2 24.1 k g/m2 MEDENT ([facility]) Body weight 151.2 [lb_av] 151.2 [lb_av] eCW1 ([facility]) Body height 67 [in_i] 67 [in_i] eCW1 ([facility]) Body mass index (BMI) [Ratio] 23.68 kg/m2 23.68 kg/m2 [facility] ([facility]) Heart rate 82 /min 82 /min eCW1 ([facility]) Respiratory rate 18 /min 18 /min eCW1 ([facility]) Body temperature 98.5 [degF] 98.5 [degF] eCW1 ( [facility]) Systolic blood pressure 124 mm[Hg] 124 mm[Hg] e CW1 ([facility]) Diastolic blood pressure 82 mm[Hg] 82 mm[Hg] eCW1 ([facility]) Body weight 148.0 [lb_av] 148.0 [lb_av] eCW1 ([facility]) Body height 67 [in_i] 67 [in_i] eCW1 ([facility]) Body mass index (BMI) [Ratio] 23.18 kg/m2 23.18 kg/m2 eCW1 ([facility]) Heart rate 92 /min 92 /min eCW1 ([facility]) Respiratory rate 18 /min 18 /min eCW1 ([facility]) Body temperature 98.3 [degF] 98.3 [degF] eCW1 ( [facility]) Systolic blood pressure 122 mm[Hg] 122 mm[Hg] e CW1 ([facility]) Diastolic blood pressure 72 mm[Hg] 72 mm[Hg] eCW1 ([facility]) Body weight 151.6 [lb_av] 151.6 [lb_av] eCW1 ([facility]) Body height 67 [in_i] 67 [in_i] eCW1 ([facility]) Body mass index (BMI) [Ratio] 23.74 kg/m2 23.74 kg/m2 eCW1 ([facility]) Heart rate 86 /min 86 /min eCW1 ([facility]) Respiratory rate 18 /min 18 /min eCW1 ([facility]) Body temperature 97.9 [degF] 97.9 [degF] eCW1 ( [facility]) Systolic blood pressure 118 mm[Hg] 118 mm[Hg] e CW1 ([facility]) Diastolic blood pressure 60 mm[Hg] 60 mm[Hg] eCW1 ([facility]) Patient Treatment Plan of Care Planned Activity Planned Date Details Description Data Source (s) Phentermine Hydrochloride 15 MG Oral Capsule 03/28/2021 12:00:00 AM EST eCW1 ([facility]) Phentermine Hydrochloride 30 MG Oral Capsule 03/28/2021 12:00:00 AM EST eCW1 ([facility]) Nicotine 2 MG Chewing Gum 03/05/2021 12:00:00 AM EDT eCW1 ([facility]) Nicotine 4 MG/ACTUAT Inhalant Solution [Nicotrol] 2020 12: 00:00 AM EDT eCW1 ([facility]) duloxetine 30 MG Delayed Release Oral Capsule [Cymbalt a] 2020 12:00:00 AM EDT eCW1 ([facility]) Nicotine 4 MG/ACTUAT Inhalant Solution [Nicotrol] 2020 12: 00:00 AM EDT eCW1 ([facility]) duloxetine 30 MG Delayed Release Oral Capsule [Cymbalt a] 2020 12:00:00 AM EDT eCW1 ([facility]) Nicotine 4 MG/ACTUAT Inhalant Solution [Nicotrol] 2020 12: 00:00 AM EDT eCW1 ([facility]) duloxetine 30 MG Delayed Release Oral Capsule [Cymbalt a] 2020 12:00:00 AM EDT eCW1 ([facility])
[2021-04-14] MEDS ORDERED: ASPIRIN 81 MG CHEW TABLET PO ONE (12:15)
[2021-04-14] MEDS: COMBIVENT RESPIMAT 100-20MCG INHALER 4GM INH SCH ×3 (12:38→13:13)
[2021-04-14 12:46] LABS: BASO % 0.5 % (0.0-1.0); EOS # 0.1 10^3/uL (0.0-0.5); EOS % 1.3 % (0.0-3.0); HEMATOCRIT 42.8 % (36.0-47.0); HEMOGLOBIN 14.2 g/dl (12.0-15.5); LYMPH # 2.5 10^3/uL (1.5-5.0); MEAN CORPUSCULAR HEMOGLOBIN 31.6 pg (27.0-33.0); MEAN CORPUSCULAR HGB CONC 33.2 g/dl (32.0-36.5); MEAN CORPUSCULAR VOLUME 95.3 fl (80.0-96.0); MONO # 0.5 10^3/uL (0.0-0.8); MONO % 6.4 % (2.0-8.0); NEUTROPHILS # 4.6 10^3/uL (1.5-8.5); NEUTROPHILS % 59.5 % (36.0-66.0); PLATELET COUNT, AUTOMATED 216 10^3/uL (150-450); RED BLOOD COUNT 4.49 10^6/uL (4.00-5.40); WHITE BLOOD COUNT 7.7 10^3/uL (4.0-10.0)
--- NOTE | 2021-04-14 12:48 | REP ---
INDICATION: CHEST PAIN. COMPARISON: 01/31/2021. TECHNIQUE: Single portable AP view of the chest was performed. FINDINGS: There is mild bibasilar fibro atelectatic change. No infiltrate is seen. The heart is not significantly enlarged. The mediastinal silhouette is unchanged. The visualized osseous structures appear intact. Sclerotic density in the proximal left humerus is unchanged. IMPRESSION: No acute infiltrate visualized. Mild bibasilar fibro atelectatic change. <Electronically signed by Travis Shannon > 04/14/21 1243
[2021-04-14 13:01] LABS: ABG BASE EXCESS 2.4 (-2.0-2.0); ABG HCO3 25.7 MEQ/L (22.0-26.0); ABG O2 SATURATION 95.8 % (95.0-99.0); ABG PARTIAL PRESSURE CO2 35.8 mmHg (35.0-45.0); ABG PARTIAL PRESSURE O2 70.3 mmHg (75.0-100.0); ABG STANDARD HCO3 26.5 MEQ/L (22.0-26.0); ABG TOTAL CO2 26.8 MEQ/L (22.0-29.0); ABG pH (ARTERIAL) 7.474 UNITS (7.350-7.450)
[2021-04-14 13:07] LABS: BLOOD UREA NITROGEN 12 MG/DL (7-18); CALCIUM LEVEL 8.7 MG/DL (8.5-10.1); CARBON DIOXIDE LEVEL 26 MEQ/L (21-32); CHLORIDE LEVEL 111 MEQ/L (98-107); CREATININE FOR GFR 0.58 MG/DL (0.55-1.30); GLOMERULAR FILTRATION RATE > 60.0 (>51); GLUCOSE, FASTING 77 MG/DL (70-100); POTASSIUM SERUM 4.2 MEQ/L (3.5-5.1); SODIUM LEVEL 142 MEQ/L (136-145)
[2021-04-14] MEDS ORDERED: PROAAER10 INH (13:22)
[2021-04-14 13:30] VITALS: BP 115/66
--- NOTE | 2021-04-15 20:17 | ECGEPIP ---
[facility] - ED Test Date: 2021-04-14 Pat Name: GENEVIEVE ROQUE Department: Room: - Gender: Female Composition Molder: RAFAEL : [id number] Requested By: MADHU BORDEN Order Number: [id number] Reading MD: Phillip Espinoza Measurements Intervals [place] Rate: 56 P: 47 [place]: 144 QRS: 26 QRSD: 86 T: 52 QT: 448 QTc: 432 Interpretive Statements Sinus bradycardia NSTTW ABNORMALITY(S) SIMILAR TO 11/11/20 Electronically Signed on 04-15-2021 20:17:05 EST by Phillip Espinoza
== END 2021-04-14 13:54 | disposition home or self-care (01) ==
LOC: M ED 08:45
DX: R05.9 Cough, unspecified (principal); R07.89 Other chest pain; R00.1 Bradycardia, unspecified; J44.9 Chronic obstructive pulmonary disease, unspecified; J30.2 Other seasonal allergic rhinitis; Z98.84 Bariatric surgery status; Z87.891 Personal history of nicotine dependence; Z82.49 Family history of ischemic heart disease and other diseases of the circulatory system; Z79.899 Other long term (current) drug therapy; Z91.89 Other specified personal risk factors, not elsewhere classified; Z91.040 Latex allergy status; Z88.8 Allergy status to other drugs, medicaments and biological substances

== ENCOUNTER 2021-09-10 07:18 | Emergency (ER) | payer BC ==
[~2021-09-10] VITALS: Ht 170.2 cm; Wt 68.4 kg
[~2021-09-10 07:18] MED LIST changes: +PROAAER10 INH
[2021-09-10] MEDS ORDERED: LEVO25TA5 (07:35)
[2021-09-10] MEDS ORDERED: PROM25TA12 PO (07:35)
[2021-09-10] MEDS ORDERED: MONT10TA97 (07:35)
[2021-09-10] MEDS: NS 1,000 ML IV ONE (08:10)
[2021-09-10] MEDS: ONDANSETRON 4MG/2ML VIAL IV ONE (08:35)
[2021-09-10 08:37] LABS: BASO # 0.1 10^3/uL (0.0-0.2); BASO % 0.7 % (0.0-1.0); EOS # 0.1 10^3/uL (0.0-0.5); EOS % 0.9 % (0.0-3.0); HEMATOCRIT 46.3 % (36.0-47.0); HEMOGLOBIN 15.6 g/dl (12.0-15.5); LYMPH # 1.8 10^3/uL (1.5-5.0); LYMPH % 15.1 % (24.0-44.0); MEAN CORPUSCULAR HEMOGLOBIN 32.2 pg (27.0-33.0); MEAN CORPUSCULAR HGB CONC 33.7 g/dl (32.0-36.5); MEAN CORPUSCULAR VOLUME 95.5 fl (80.0-96.0); MONO # 0.9 10^3/uL (0.0-0.8); NEUTROPHILS # 9.3 10^3/uL (1.5-8.5); NEUTROPHILS % 75.9 % (36.0-66.0); PLATELET COUNT, AUTOMATED 361 10^3/uL (150-450); RED BLOOD COUNT 4.85 10^6/uL (4.00-5.40); WHITE BLOOD COUNT 12.2 10^3/uL (4.0-10.0)
[2021-09-10] MEDS: KETOROLAC 30 MG/ML 1ML VIAL IV ONE (08:53)
[2021-09-10 08:58] LABS: ALBUMIN 3.8 GM/DL (3.2-5.2); ALT/SGPT 35 U/L (12-78); BILIRUBIN,DIRECT < 0.1 MG/DL (0.0-0.2); BILIRUBIN,TOTAL 0.3 MG/DL (0.2-1.0); LIPASE 84 U/L (73-393); TOTAL PROTEIN 7.9 GM/DL (6.4-8.2)
[2021-09-10] MEDS ORDERED: ISOVUE-370 76% 100ML VIAL As Ordered ONE (09:18)
[2021-09-10] MEDS ORDERED: ONDA4TAB6 PO (10:20)
[2021-09-10 10:33] VITALS: BP 144/81
== END 2021-09-10 11:18 | disposition home or self-care (01) ==
LOC: M ED 07:18
DX: K59.00 Constipation, unspecified (principal); R11.2 Nausea with vomiting, unspecified; E03.9 Hypothyroidism, unspecified; M54.30 Sciatica, unspecified side; K21.9 Gastro-esophageal reflux disease without esophagitis; Z79.899 Other long term (current) drug therapy; Z91.048 Other nonmedicinal substance allergy status; Z88.8 Allergy status to other drugs, medicaments and biological substances; Z91.040 Latex allergy status; Z87.19 Personal history of other diseases of the digestive system; Z98.84 Bariatric surgery status; Z98.890 Other specified postprocedural states
CPT/HCPCS: 74018; 74177; 80047; 80076; 83605; 83690; 85025; 96374; 96375; 99284; J1885; J2405; Q9967

== ENCOUNTER → 2021-09-11 | Outpatient (REF) | payer BC ==
[~2021-09-11] MED LIST changes: +LEVO25TA5; +MONT10TA97
== END ==
LOC: M LAB 09:01
PROVIDERS: ATTEND Physician Assistant Medical
DX: R11.2 Nausea with vomiting, unspecified (principal)

== ENCOUNTER → 2021-09-16 | Outpatient (CLI) | payer BC | LOC: M RAD 16:58 | PROVIDERS: ATTEND Family Medicine | DX: Z12.2 Encounter for screening for malignant neoplasm of respiratory organs (principal); J43.9 Emphysema, unspecified; R91.1 Solitary pulmonary nodule ==

== ENCOUNTER → 2021-09-24 | Outpatient (REF) | payer BC ==
[2021-09-24 16:53] LABS: HEMATOCRIT 36.3 % (36.0-47.0); HEMOGLOBIN 12.1 g/dl (12.0-15.5); MEAN CORPUSCULAR HEMOGLOBIN 32.4 pg (27.0-33.0); MEAN CORPUSCULAR HGB CONC 33.3 g/dl (32.0-36.5); MEAN CORPUSCULAR VOLUME 97.1 fl (80.0-96.0); PLATELET COUNT, AUTOMATED 359 10^3/uL (150-450); RED BLOOD COUNT 3.74 10^6/uL (4.00-5.40); WHITE BLOOD COUNT 7.8 10^3/uL (4.0-10.0)
== END ==
LOC: M SFHCPLAZ 16:05
PROVIDERS: ATTEND Family Medicine
DX: R10.13 Epigastric pain (principal); Z98.84 Bariatric surgery status

== ENCOUNTER → 2022-03-31 | Outpatient (CLI) | payer BC ==
[~2022-03-31] MED LIST changes: +ISOVUE-370 76% 100ML VIAL As Ordered ONE
== END ==
LOC: M RAD 09:42
PROVIDERS: ATTEND Family Medicine
DX: R91.1 Solitary pulmonary nodule (principal); J43.9 Emphysema, unspecified; I31.39 Other pericardial effusion (noninflammatory); I70.0 Atherosclerosis of aorta; I25.10 Atherosclerotic heart disease of native coronary artery without angina pectoris; Z98.84 Bariatric surgery status; M48.14 Ankylosing hyperostosis [Forestier], thoracic region

== ENCOUNTER 2022-12-09 08:50 | Emergency (ER) | payer BC ==
[~2022-12-09] VITALS: Ht 170.2 cm; Wt 67.4 kg
[~2022-12-09 08:50] MED LIST changes: -ISOVUE-370 76% 100ML VIAL As Ordered ONE; +MONT-5 PO; -SING10TA32 PO; +TOPI-254; -TOPI50TA9
[2022-12-09] MEDS ORDERED: MONT-5 PO (09:06)
[2022-12-09] MEDS ORDERED: TOPI200T7 PO (09:06)
[2022-12-09] MEDS ORDERED: NS 1,000 ML IV ONE (09:40)
[2022-12-09] MEDS ORDERED: ISOVUE-370 76% 100ML VIAL As Ordered ONE (10:02)
[2022-12-09 10:05] LABS: BASO # 0.1 10^3/uL (0.0-0.2); BASO % 0.6 % (0.0-1.0); EOS # 0.1 10^3/uL (0.0-0.5); HEMATOCRIT 45.9 % (36.0-47.0); HEMOGLOBIN 15.8 g/dl (12.0-15.5); LYMPH # 2.8 10^3/uL (1.5-5.0); LYMPH % 25.4 % (24.0-44.0); MEAN CORPUSCULAR HEMOGLOBIN 31.7 pg (27.0-33.0); MEAN CORPUSCULAR HGB CONC 34.4 g/dl (32.0-36.5); MONO # 0.8 10^3/uL (0.0-0.8); MONO % 7.4 % (2.0-8.0); NEUTROPHILS # 7.1 10^3/uL (1.5-8.5); PLATELET COUNT, AUTOMATED 299 10^3/uL (150-450); RED BLOOD COUNT 4.99 10^6/uL (4.00-5.40); WHITE BLOOD COUNT 10.9 10^3/uL (4.0-10.0)
[2022-12-09] MEDS ORDERED: ONDANSETRON 4MG 2ML VIAL IV ONE (10:05)
[2022-12-09 10:37] LABS: LIPASE 34 U/L (12-53)
[2022-12-09 10:39] LABS: ALKALINE PHOSPHATASE 96 U/L (46-116); ALT/SGPT 18 U/L (7.0-40); AST/SGOT 15 U/L (<34); BILIRUBIN,DIRECT < 0.1 MG/DL (<0.4); BILIRUBIN,TOTAL 0.4 MG/DL (0.3-1.2); CK-MB VALUE MASS < 1.0 NG/ML (<3.6); TOTAL PROTEIN 7.4 G/DL (5.7-8.2)
[2022-12-09 10:48] LABS: RSV AMPLIFICATION NEGATIVE (NEGATIVE)
[2022-12-09 10:50] LABS: CPK CREATINE PHOSPHOKINASE 100 U/L (34-145)
[2022-12-09] MEDS ORDERED: MAALOX 30 ML SUSP *UDC PO ONE (11:25)
[2022-12-09] MEDS ORDERED: MAALSUS19 PO (12:09)
[2022-12-09] MEDS ORDERED: BENZ200C70 PO (12:09)
[2022-12-09] MEDS ORDERED: ONDA4TAB6 PO (12:09)
[2022-12-09 12:48] VITALS: BP 128/68; TEMP 98.9; O2SAT 97
== END 2022-12-09 12:52 | disposition home or self-care (01) ==
LOC: M ED 08:50
DX: R13.12 Dysphagia, oropharyngeal phase (principal); J06.9 Acute upper respiratory infection, unspecified; K83.8 Other specified diseases of biliary tract; J30.2 Other seasonal allergic rhinitis; F17.200 Nicotine dependence, unspecified, uncomplicated; Z79.899 Other long term (current) drug therapy; Z88.8 Allergy status to other drugs, medicaments and biological substances; Z91.040 Latex allergy status; Z91.89 Other specified personal risk factors, not elsewhere classified
CPT/HCPCS: 71260; 74177; 80047; 80076; 82550; 82553; 83690; 84484; 85025; 87631; 93005; 96361; 96374; 99284; J2405; Q9967

== ENCOUNTER → 2023-01-24 | Outpatient (CLI) | payer BC ==
[~2023-01-24] MED LIST changes: +BENZ200C70 PO; +MAALSUS19 PO; -MISO200T56; -MISO200T56 PO; +MISO200T83; +MISO200T83 PO; +TOPI200T7 PO
[2023-01-24 11:08] LABS: ALBUMIN 3.5 G/DL (3.2-5.2); ALKALINE PHOSPHATASE 96 U/L (46-116); ALT/SGPT 23 U/L (7.0-40); AST/SGOT 16 U/L (<34); BILIRUBIN,TOTAL 0.2 MG/DL (0.3-1.2); BLOOD UREA NITROGEN 17 MG/DL (9-23); CALCIUM LEVEL 8.7 MG/DL (8.3-10.6); CARBON DIOXIDE LEVEL 29 MMOL/L (20-31); CHLORIDE LEVEL 108 MMOL/L (98-107); CHOLESTEROL LEVEL 150 MG/DL (<200); CHOLESTEROL RISK RATIO 2.62 (<5); CREATININE FOR GFR 0.74 MG/DL (0.55-1.30); GLOMERULAR FILTRATION RATE > 60.0 (>45); GLUCOSE, FASTING 86 MG/DL (74-106); HDL CHOLESTEROL 57.1 MG/DL (>40); LDL CHOLESTEROL 83.3 MG/DL (<100); NON-HDL-C 92.9 MG/DL; POTASSIUM SERUM 4.2 MMOL/L (3.5-5.1); SODIUM LEVEL 142 MMOL/L (136-145); THYROID STIMULATING HORMONE 1.173 uIU/ML (0.55-4.78); TOTAL 25(OH) VITAMIN D 59.8 NG/ML (20.0-100.0); TOTAL PROTEIN 6.5 G/DL (5.7-8.2); TRIGLYCERIDES LEVEL 48 MG/DL (<150)
== END ==
LOC: M WUC 08:27
PROVIDERS: ATTEND Family Medicine
DX: E78.00 Pure hypercholesterolemia, unspecified (principal); I10 Essential (primary) hypertension; E55.9 Vitamin D deficiency, unspecified; Z98.84 Bariatric surgery status; Z13.1 Encounter for screening for diabetes mellitus; E03.9 Hypothyroidism, unspecified

== ENCOUNTER → 2023-08-02 | Outpatient (CLI) | payer BC ==
[~2023-08-02] MED LIST changes: +TOPI-21; -TOPI-254
== END ==
LOC: M WHC 08:08
PROVIDERS: ATTEND Family Medicine
DX: N60.02 Solitary cyst of left breast (principal); R92.8 Other abnormal and inconclusive findings on diagnostic imaging of breast

== ENCOUNTER → 2023-08-10 | Outpatient (CLI) | payer BC | LOC: M WUC 08:59 | PROVIDERS: ATTEND Family Medicine | DX: E03.9 Hypothyroidism, unspecified (principal) ==

== ENCOUNTER → 2024-01-23 | Outpatient (CLI) | payer BC ==
[~2024-01-23] MED LIST changes: +APAP325T4 PO; -MIRT-60 PO; +MIRT-89 PO; +ONDA-282 PO; +ONDA-284 PO; -ONDA4TAB6 PO; -ONDA8TAB8 PO
== END ==
LOC: M WUC 09:08
PROVIDERS: ATTEND Nurse Practitioner Family
DX: M16.11 Unilateral primary osteoarthritis, right hip (principal)

== ENCOUNTER → 2024-01-26 | Outpatient (CLI) | payer BC ==
[2024-01-26 14:52] LABS: HEMATOCRIT 43.3 % (36.0-47.0); MEAN CORPUSCULAR HEMOGLOBIN 31.7 pg (27.0-33.0); MEAN CORPUSCULAR HGB CONC 32.3 g/dl (32.0-36.5); PLATELET COUNT, AUTOMATED 311 10^3/uL (150-450); RED BLOOD COUNT 4.42 10^6/uL (4.00-5.40); WHITE BLOOD COUNT 8.9 10^3/uL (4.0-10.0)
[2024-01-26 14:55] LABS: ALKALINE PHOSPHATASE 92 U/L (46-116); ALT/SGPT 27 U/L (7.0-40); AST/SGOT 19 U/L (<34); BILIRUBIN,TOTAL 0.2 MG/DL (0.3-1.2); BLOOD UREA NITROGEN 14 MG/DL (9-23); CALCIUM LEVEL 9.7 MG/DL (8.3-10.6); CARBON DIOXIDE LEVEL 30 MMOL/L (20-31); CHLORIDE LEVEL 107 MMOL/L (98-107); CHOLESTEROL LEVEL 203 MG/DL (<200); CHOLESTEROL RISK RATIO 2.98 (<5); CREATININE FOR GFR 0.71 MG/DL (0.55-1.30); GLOMERULAR FILTRATION RATE > 60.0 (>45); GLUCOSE, FASTING 107 MG/DL (74-106); IRON (FE) 67 UG/DL (50-170); PERCENT SATURATION 23.9 % (13.2-45.0); POTASSIUM SERUM 3.7 MMOL/L (3.5-5.1); SODIUM LEVEL 141 MMOL/L (136-145); TOTAL IRON BINDING CAPACITY 280 UG/DL (250-425); TOTAL PROTEIN 7.6 G/DL (5.7-8.2); TRIGLYCERIDES LEVEL 100 MG/DL (<150)
[2024-01-26 14:56] LABS: FERRITIN 37.8 NG/ML (7.3-270.7); THYROID STIMULATING HORMONE 1.686 uIU/ML (0.55-4.78)
[2024-01-26 14:57] LABS: FOLATE 21.6 NG/ML (>5.4); VITAMIN B12 LEVEL 790 PG/ML (211-911)
[2024-01-29 19:02] LABS: HOMOCYST(E)INE SERUM 9.2 umol/L (<10.4)
[2024-01-31 17:43] LABS: VITAMIN E(ALPHA TOCOPHEROL) 13.9 mg/L (5.7-19.9)
[2024-01-31 18:23] LABS: VITAMIN B6,PYRIDOXAL PHOSPHATE 31.4 ng/mL (2.1-21.7)
== END ==
LOC: M PLALAB 09:37
PROVIDERS: ATTEND Family Medicine
DX: F41.1 Generalized anxiety disorder (principal); F33.41 Major depressive disorder, recurrent, in partial remission; G60.9 Hereditary and idiopathic neuropathy, unspecified; Z98.84 Bariatric surgery status; E55.9 Vitamin D deficiency, unspecified; E78.00 Pure hypercholesterolemia, unspecified

== ENCOUNTER → 2024-01-29 | Outpatient (CLI) | payer BC ==
[2024-01-30 17:07] LABS: HOMOCYST(E)INE SERUM 8.5 umol/L (<10.4)
== END ==
LOC: M LAB 08:47 → M PLALAB 08:47
PROVIDERS: ATTEND Family Medicine
DX: G60.9 Hereditary and idiopathic neuropathy, unspecified (principal); Z98.84 Bariatric surgery status

== ENCOUNTER 2024-01-31 08:46 | Emergency (ER) | payer BC ==
[~2024-01-31] VITALS: Ht 170.2 cm; Wt 69.0 kg
[~2024-01-31 08:46] MED LIST changes: -APAP325T4 PO
[2024-01-31] MEDS ORDERED: APAP325T4 PO (08:55)
[2024-01-31 09:17] LABS: BASO # 0.1 10^3/uL (0.0-0.2); BASO % 0.7 % (0.0-1.0); EOS # 0.1 10^3/uL (0.0-0.5); EOS % 1.1 % (0.0-3.0); HEMATOCRIT 43.3 % (36.0-47.0); HEMOGLOBIN 14.3 g/dl (12.0-15.5); LYMPH # 2.8 10^3/uL (1.5-5.0); LYMPH % 31.6 % (24.0-44.0); MEAN CORPUSCULAR HEMOGLOBIN 32.1 pg (27.0-33.0); MEAN CORPUSCULAR VOLUME 97.1 fl (80.0-96.0); MONO # 0.7 10^3/uL (0.0-0.8); MONO % 7.3 % (2.0-8.0); NEUTROPHILS # 5.2 10^3/uL (1.5-8.5); NEUTROPHILS % 58.7 % (36.0-66.0); PLATELET COUNT, AUTOMATED 297 10^3/uL (150-450); RED BLOOD COUNT 4.46 10^6/uL (4.00-5.40); WHITE BLOOD COUNT 8.9 10^3/uL (4.0-10.0)
[2024-01-31 09:49] LABS: LIPASE 25 U/L (12-53)
[2024-01-31 09:51] LABS: ALBUMIN 3.7 G/DL (3.2-5.2); ALKALINE PHOSPHATASE 99 U/L (46-116); ALT/SGPT 22 U/L (7.0-40); AST/SGOT 18 U/L (<34); BILIRUBIN,DIRECT 0.1 MG/DL (<0.4); BILIRUBIN,TOTAL 0.4 MG/DL (0.3-1.2); BLOOD UREA NITROGEN 10 MG/DL (9-23); CALCIUM LEVEL 9.3 MG/DL (8.3-10.6); CARBON DIOXIDE LEVEL 28 MMOL/L (20-31); CHLORIDE LEVEL 107 MMOL/L (98-107); CREATININE FOR GFR 0.76 MG/DL (0.55-1.30); GLOMERULAR FILTRATION RATE > 60.0 (>45); GLUCOSE, FASTING 96 MG/DL (74-106); POTASSIUM SERUM 4.5 MMOL/L (3.5-5.1); SODIUM LEVEL 139 MMOL/L (136-145); TOTAL PROTEIN 7.3 G/DL (5.7-8.2)
[2024-01-31] MEDS: ONDANSETRON 4MG 2ML VIAL IV ONE (10:21)
[2024-01-31] MEDS: ACETAMINOPHEN *IV* 1,000 MG in IV 1 EA IV ONE (10:21)
[2024-01-31] MEDS: NS 1,000 ML IV ONE (10:21)
[2024-01-31] MEDS: GASTROGRAFIN SOLUTION 30ML PO SCH (11:17)
[2024-01-31] MEDS ORDERED: ISOVUE-370 76% 100ML VIAL As Ordered ONE (12:40)
[2024-01-31] MEDS: SUCRALFATE SUSP 1GM/10ML UD PO ONE (14:19)
[2024-01-31] MEDS: MORPHINE 4 MG/ML 1ML VIAL IV ONE (14:20)
[2024-01-31 15:50] VITALS: BP 136/63; TEMP 98.6; O2SAT 95
== END 2024-01-31 15:54 | disposition home or self-care (01) ==
LOC: M ED 08:46
DX: K27.7 Chronic peptic ulcer, site unspecified, without hemorrhage or perforation (principal); J98.11 Atelectasis; J43.9 Emphysema, unspecified; K44.9 Diaphragmatic hernia without obstruction or gangrene; F41.9 Anxiety disorder, unspecified; F32.A Depression, unspecified; F17.200 Nicotine dependence, unspecified, uncomplicated; Z98.84 Bariatric surgery status; Z88.8 Allergy status to other drugs, medicaments and biological substances; Z91.040 Latex allergy status; Z91.048 Other nonmedicinal substance allergy status; Z79.52 Long term (current) use of systemic steroids; Z79.899 Other long term (current) drug therapy
CPT/HCPCS: 74177; 80048; 80076; 83690; 85025; 86140; 96361; 96365; 96375; 99284; J0131; J2405; Q9963; Q9967

== ENCOUNTER 2024-02-21 08:39 | Emergency (ER) | payer BC ==
[~2024-02-21] VITALS: Ht 170.2 cm; Wt 70.8 kg
[~2024-02-21 08:39] MED LIST changes: +APAP325T4 PO
[2024-02-21 09:37] LABS: BASO # 0.1 10^3/uL (0.0-0.2); BASO % 1.3 % (0.0-1.0); EOS # 0.1 10^3/uL (0.0-0.5); EOS % 1.3 % (0.0-3.0); HEMATOCRIT 38.8 % (36.0-47.0); HEMOGLOBIN 12.8 g/dl (12.0-15.5); LYMPH # 1.8 10^3/uL (1.5-5.0); LYMPH % 39.5 % (24.0-44.0); MONO # 0.4 10^3/uL (0.0-0.8); NEUTROPHILS # 2.3 10^3/uL (1.5-8.5); NEUTROPHILS % 49.2 % (36.0-66.0); PLATELET COUNT, AUTOMATED 290 10^3/uL (150-450); WHITE BLOOD COUNT 4.6 10^3/uL (4.0-10.0)
[2024-02-21 10:05] LABS: BLOOD UREA NITROGEN 12 MG/DL (9-23); CALCIUM LEVEL 8.8 MG/DL (8.3-10.6); CARBON DIOXIDE LEVEL 29 MMOL/L (20-31); CHLORIDE LEVEL 109 MMOL/L (98-107); CREATININE FOR GFR 0.65 MG/DL (0.55-1.30); GLOMERULAR FILTRATION RATE > 60.0 (>45); GLUCOSE, FASTING 98 MG/DL (74-106); POTASSIUM SERUM 4.2 MMOL/L (3.5-5.1); SODIUM LEVEL 141 MMOL/L (136-145)
[2024-02-21 10:15] LABS: LIPASE 56 U/L (12-53)
[2024-02-21 10:16] LABS: C REACTIVE PROTEIN QUANTITATIV < 0.40 MG/DL (<1.0)
[2024-02-21 10:17] LABS: ALBUMIN 3.2 G/DL (3.2-5.2); ALKALINE PHOSPHATASE 97 U/L (46-116); ALT/SGPT 17 U/L (7.0-40); AST/SGOT 12 U/L (<34); BILIRUBIN,DIRECT < 0.1 MG/DL (<0.4); BILIRUBIN,TOTAL 0.2 MG/DL (0.3-1.2); TOTAL PROTEIN 6.6 G/DL (5.7-8.2)
[2024-02-21] MEDS ORDERED: ISOVUE-370 76% 100ML VIAL As Ordered ONE (11:06)
[2024-02-21] MEDS: ACETAMINOPHEN 325 MG TAB PO ONE (11:17)
[2024-02-21 13:44] VITALS: BP 171/85; TEMP 97.8; O2SAT 96
== END 2024-02-21 13:46 | disposition home or self-care (01) ==
LOC: M ED 08:39
DX: R10.9 Unspecified abdominal pain (principal); K57.30 Diverticulosis of large intestine without perforation or abscess without bleeding; N28.1 Cyst of kidney, acquired; E03.9 Hypothyroidism, unspecified; K27.9 Peptic ulcer, site unspecified, unspecified as acute or chronic, without hemorrhage or perforation; Z88.8 Allergy status to other drugs, medicaments and biological substances; Z91.040 Latex allergy status; Z91.048 Other nonmedicinal substance allergy status; Z98.84 Bariatric surgery status; Z79.1 Long term (current) use of non-steroidal anti-inflammatories (NSAID); Z79.52 Long term (current) use of systemic steroids; Z79.83 Long term (current) use of bisphosphonates; Z79.899 Other long term (current) drug therapy
CPT/HCPCS: 36415; 74177; 80048; 80076; 83605; 83690; 85025; 86140; 99284; Q9967

== ENCOUNTER → 2024-04-09 | Outpatient (CLI) | payer BC | LOC: M RAD 08:08 | PROVIDERS: ATTEND Family Medicine | DX: K91.850 Pouchitis (principal); R93.89 Abnormal findings on diagnostic imaging of other specified body structures; K76.89 Other specified diseases of liver; N28.1 Cyst of kidney, acquired ==

== ENCOUNTER → 2024-06-18 | Outpatient (CLI) | payer BC ==
[~2024-06-18] MED LIST changes: -CITRTAB10 PO; +CITRTAB11 PO
== END ==
LOC: M RAD 12:13
PROVIDERS: ATTEND Family Medicine
DX: Z12.2 Encounter for screening for malignant neoplasm of respiratory organs (principal); F17.210 Nicotine dependence, cigarettes, uncomplicated

== ENCOUNTER → 2024-12-31 | Outpatient (CLI) | payer BC ==
[~2024-12-31] MED LIST changes: +TOPI-14 PO; -TOPI200T7 PO
[2024-12-31 11:00] LABS: PLATELET COUNT, AUTOMATED 321 10^3/uL (150-450)
[2024-12-31 11:22] LABS: ALT/SGPT 23 U/L (7.0-40); AST/SGOT 27 U/L (<34); CALCIUM LEVEL 9.3 MG/DL (8.3-10.6); CARBON DIOXIDE LEVEL 29 MMOL/L (20-31); CHLORIDE LEVEL 110 MMOL/L (98-107); CHOLESTEROL LEVEL 175 MG/DL (<200); CHOLESTEROL RISK RATIO 2.95 (<5); CREATININE FOR GFR 0.72 MG/DL (0.55-1.30); GLOMERULAR FILTRATION RATE > 90.0 (>45); IRON (FE) 51 UG/DL (50-170); LDL CHOLESTEROL 104.6 MG/DL (<100); NON-HDL-C 115.8 MG/DL; PERCENT SATURATION 19.7 % (13.2-45.0); POTASSIUM SERUM 4.2 MMOL/L (3.5-5.1); SODIUM LEVEL 145 MMOL/L (136-145); TRIGLYCERIDES LEVEL 56 MG/DL (<150)
[2024-12-31 11:23] LABS: TOTAL 25(OH) VITAMIN D 32.3 NG/ML (20.0-100.0)
[2024-12-31 11:24] LABS: VITAMIN B12 LEVEL 706 PG/ML (211-911)
[2025-01-01 15:42] LABS: HOMOCYST(E)INE SERUM 8.1 umol/L (< or = 13.4)
== END ==
LOC: M PLALAB 08:30
PROVIDERS: ATTEND Family Medicine
DX: Z98.84 Bariatric surgery status (principal); E55.9 Vitamin D deficiency, unspecified; E78.00 Pure hypercholesterolemia, unspecified; E03.9 Hypothyroidism, unspecified

== ENCOUNTER 2025-04-06 05:20 | Emergency (ER) | payer BC ==
[~2025-04-06] VITALS: Ht 170.2 cm; Wt 64.2 kg
[2025-04-06] MEDS: KETOROLAC 30 MG/ML 1 ML VIAL IM ONE (09:26)
[2025-04-06] MEDS ORDERED: CYCL-707 PO (09:40)
[2025-04-06 09:47] VITALS: BP 128/73; TEMP 99.1; O2SAT 95
== END 2025-04-06 10:01 | disposition home or self-care (01) ==
LOC: M ED 05:20
DX: R68.84 Jaw pain (principal); J45.909 Unspecified asthma, uncomplicated; Z88.8 Allergy status to other drugs, medicaments and biological substances; Z91.040 Latex allergy status; Z79.899 Other long term (current) drug therapy; Z79.51 Long term (current) use of inhaled steroids
CPT/HCPCS: 70110; 96372; 99283; J1885

== ENCOUNTER 2025-04-19 08:12 | Emergency (ER) | payer BC ==
[~2025-04-19] VITALS: Ht 170.2 cm; Wt 63.6 kg
[~2025-04-19 08:12] MED LIST changes: +CYCL-707 PO; -LEVO25TA5
[2025-04-19 09:07] LABS: BASO # 0.1 10^3/uL (0.0-0.2); BASO % 0.6 % (0.0-1.0); EOS # 0.1 10^3/uL (0.0-0.5); EOS % 0.8 % (0.0-3.0); LYMPH # 1.8 10^3/uL (1.5-5.0); LYMPH % 17.4 % (24.0-44.0); MONO # 0.7 10^3/uL (0.0-0.8); MONO % 6.5 % (2.0-8.0); NEUTROPHILS # 7.5 10^3/uL (1.5-8.5); NEUTROPHILS % 74.3 % (36.0-66.0); PLATELET COUNT, AUTOMATED 328 10^3/uL (150-450)
[2025-04-19] MEDS: PANTOPRAZOLE 40MG VIAL IV ONE (09:26)
[2025-04-19 09:29] LABS: ALT/SGPT 23 U/L (7.0-40); AST/SGOT 23 U/L (<34); CALCIUM LEVEL 8.8 MG/DL (8.3-10.6); CARBON DIOXIDE LEVEL 27 MMOL/L (20-31); CHLORIDE LEVEL 108 MMOL/L (98-107); CREATININE FOR GFR 0.67 MG/DL (0.55-1.30); GLOMERULAR FILTRATION RATE > 90.0 (>45); POTASSIUM SERUM 4.4 MMOL/L (3.5-5.1); SODIUM LEVEL 143 MMOL/L (136-145)
[2025-04-19] MEDS: GASTROGRAFIN SOLUTION 30ML PO SCH (09:55)
[2025-04-19] MEDS ORDERED: ISOVUE-370 76% 100 ML VIAL As Ordered ONE (11:15)
[2025-04-19] MEDS: ONDANSETRON 4MG/2ML VIAL IV ONE (12:32)
[2025-04-19] MEDS ORDERED: VARE1TAB2 PO (14:42)
[2025-04-19] MEDS ORDERED: TOPA50TA8 PO (14:42)
[2025-04-19] MEDS ORDERED: VARE1TAB7 PO (14:42)
[2025-04-19] MEDS ORDERED: CYCL-707 PO (14:42)
[2025-04-19] MEDS ORDERED: BENZ200C70 PO (14:42)
[2025-04-19] MEDS ORDERED: MULTTAB61 PO (14:42)
[2025-04-19] MEDS ORDERED: VITA200030 PO (14:42)
[2025-04-19] MEDS ORDERED: SUCR1TA PO (14:42)
[2025-04-19] MEDS ORDERED: ONDA-282 PO (14:42)
[2025-04-19] MEDS ORDERED: DULO1CAP6 PO ×2 (14:42)
[2025-04-19] MEDS ORDERED: HOME MED LIST COMPLETE! XX SCH (14:45)
[2025-04-19 15:14] VITALS: BP 140/70; TEMP 99.9; O2SAT 93
== END 2025-04-19 15:25 | disposition home or self-care (01) ==
LOC: M ED 08:12
DX: K29.00 Acute gastritis without bleeding (principal); J98.11 Atelectasis; J44.9 Chronic obstructive pulmonary disease, unspecified; N28.1 Cyst of kidney, acquired; F41.9 Anxiety disorder, unspecified; F32.A Depression, unspecified; F17.200 Nicotine dependence, unspecified, uncomplicated; Z98.84 Bariatric surgery status; Z88.0 Allergy status to penicillin; Z91.040 Latex allergy status; Z91.09 Other allergy status, other than to drugs and biological substances; Z79.52 Long term (current) use of systemic steroids; Z79.899 Other long term (current) drug therapy
CPT/HCPCS: 74177; 80048; 80076; 83690; 85025; 96374; 96375; 99284; J2405; J2470; Q9963; Q9967